=== PATIENT | female | born 1935 | race Caucasian/White ===

== ENCOUNTER 2019-08-15 13:59 | Outpatient (RCR) | payer MEDICARE, OTHER, SELFPAY | END 2019-08-26 23:59 | disposition home or self-care (01) | LOC: WOUND 13:59 | PROVIDERS: Family Provider Family Medicine; PCP Family Medicine; Visit Provider Nurse Practitioner Family | DX: I96 Gangrene, not elsewhere classified (principal); L89.613 Pressure ulcer of right heel, stage 3; L89.620 Pressure ulcer of left heel, unstageable | CPT/HCPCS: 99204; 99214; G0463; L3260 ==

== ENCOUNTER 2019-08-29 15:10 | Outpatient (CLI) | payer MEDICARE, OTHER, SELFPAY ==
--- NOTE | 2019-08-29 15:18 | XR_ITS ---
WS: [id number] LEFT FOOT: 3 VIEW(S) TECHNIQUE: PA, oblique and lateral. HISTORY: PAIN REDNESS, NON HEALING ULCER COMPARISON: None available. No acute fracture or dislocation. Normal tarsal/metatarsal alignment. Soft tissue ulceration posterior to the calcaneus measures 1.6 cm. No osteomyelitis. XR/XR foot LT min 3V* [id number] IMPRESSION: Soft tissue ulceration in the retrocalcaneal soft tissues. Measures 1.6 cm with no osteomyelitis.
--- NOTE | 2019-08-29 15:18 | XR_ITS ---
WS: [id number] RIGHT FOOT: 3 VIEW(S) TECHNIQUE: PA, oblique and lateral. HISTORY: PAIN REDNESS, NON HEALING ULCER COMPARISON: 12/20/2008 No acute fracture or dislocation. Normal tarsal/metatarsal alignment. Soft tissue ulceration measuring 1.7 cm over the posterior calcaneus. No foreign body. No osteomyelit is. XR/XR foot RT min 3V* [id number] IMPRESSION: Soft tissue ulceration measuring 1.7 cm in the retrocalcaneal region. No osteom yelitis.
== END 2019-08-29 15:11 | disposition home or self-care (01) ==
LOC: RADWPI 15:16
PROVIDERS: Family Provider Family Medicine; PCP Family Medicine; Visit Provider Nurse Practitioner Family
DX: L97.529 Non-pressure chronic ulcer of other part of left foot with unspecified severity (principal); M79.672 Pain in left foot; M79.671 Pain in right foot
CPT/HCPCS: 73630

== ENCOUNTER 2019-09-19 14:11 | Outpatient (RCR) | payer MEDICARE, OTHER, SELFPAY | END 2019-09-24 23:59 | disposition home or self-care (01) | LOC: WOUND 14:11 | PROVIDERS: Family Provider Family Medicine; PCP Family Medicine; Visit Provider Nurse Practitioner Family | DX: I96 Gangrene, not elsewhere classified (principal); L89.613 Pressure ulcer of right heel, stage 3; L89.620 Pressure ulcer of left heel, unstageable; S81.802A Unspecified open wound, left lower leg, initial encounter; S81.801A Unspecified open wound, right lower leg, initial encounter; X58.XXXA Exposure to other specified factors, initial encounter; L97.529 Non-pressure chronic ulcer of other part of left foot with unspecified severity; M79.672 Pain in left foot; M79.671 Pain in right foot | CPT/HCPCS: 73630; 99214; G0463 ==

== ENCOUNTER 2019-10-24 14:32 | Outpatient (RCR) | payer MEDICARE, OTHER, SELFPAY | END 2019-10-25 23:59 | disposition home or self-care (01) | LOC: WOUND 14:32 | PROVIDERS: Family Provider Family Medicine; PCP Family Medicine; Visit Provider Nurse Practitioner Family | DX: I96 Gangrene, not elsewhere classified (principal); L89.612 Pressure ulcer of right heel, stage 2; S81.802A Unspecified open wound, left lower leg, initial encounter; S81.801A Unspecified open wound, right lower leg, initial encounter; X58.XXXA Exposure to other specified factors, initial encounter | CPT/HCPCS: 99204; 99213; 99214; G0463 ==

== ENCOUNTER 2019-11-21 14:24 | Outpatient (RCR) | payer MEDICARE, OTHER, SELFPAY | END 2019-11-24 23:59 | disposition home or self-care (01) | LOC: WOUND 14:24 | PROVIDERS: Family Provider Family Medicine; PCP Family Medicine; Visit Provider Emergency Medicine | DX: S81.811A Laceration without foreign body, right lower leg, initial encounter (principal); X58.XXXA Exposure to other specified factors, initial encounter | CPT/HCPCS: 11042 ==

== ENCOUNTER 2019-11-28 14:48 | Outpatient (CLI) | payer MEDICARE, OTHER, SELFPAY | END 2019-11-28 14:49 | disposition home or self-care (01) | LOC: WOUND 14:50 | PROVIDERS: Family Provider Family Medicine; PCP Family Medicine; Visit Provider Nurse Practitioner Family | DX: S81.801A Unspecified open wound, right lower leg, initial encounter (principal); X58.XXXA Exposure to other specified factors, initial encounter | CPT/HCPCS: G0463 ==

== ENCOUNTER 2019-12-12 14:43 | Outpatient (CLI) | payer MEDICARE, OTHER, SELFPAY | END 2019-12-12 14:44 | disposition home or self-care (01) | LOC: WOUND 14:44 | PROVIDERS: Family Provider Family Medicine; PCP Family Medicine; Visit Provider Nurse Practitioner Family | DX: I87.2 Venous insufficiency (chronic) (peripheral) (principal); L97.812 Non-pressure chronic ulcer of other part of right lower leg with fat layer exposed | CPT/HCPCS: 11042 ==

== ENCOUNTER 2019-12-20 06:32 | Day surgery (SDC) | payer MEDICARE, OTHER, SELFPAY ==
[2019-12-16 16:34] VITALS: BMI 17.2
[2019-12-20 06:43] VITALS: BP 76/64; PULSE 76; RESP 18; TEMP 36.6; O2SAT 97
[2019-12-20] MEDS: sodium chloride 0.9% 1,000 ML 30 ML IV (07:00)
[2019-12-20] MEDS: midazolam 1 mg/mL INJ 2 mL IVP (07:08)
--- NOTE | 2019-12-20 07:19 | ANES.PREANE2 ---
Pre-Anesthetic Assessment Pre-Anesthetic Assessment: Height/Weight: Height 1.52 m Weight 39.916 kg Temp Pulse Resp BP Pulse Ox 97.8 F 76 18 76/64 97 12/20/19 06:43 12/20/19 06:43 12/20/19 06:43 12/20/19 06:43 12/20/19 06:43 Preop Diagnosis: diverticulitis Proposed Procedure: Operation Date: 12/20/19 08:15 Proposed Procedures p Colonoscopy 65210 Z87.19(Not Applicable) - Jonah Luna MD Last intake: Intake Last Liquid Date 12/19/19 Last Liquid Time 22:00 Last Solid Date 12/18/19 Social: Social History: Tobacco (quit) and No alcohol Exam: Pre-Anes Outpt Exam: alert, oriented x 3, clear to auscultation bilaterally and regular rate & rhythm Airway: Submandibular: WNL Cervical ROM: WNL MP: 2 Dentition: False (upper and lower) History/ROS: No significant history except as noted Pulmonary: Pulmonary: PULIDO CV/HEM: CV/HEM: HTN and PVD : : Chronic renal failure Hepatic: Hepatic: None reported GI: GI: None reported Metabolic: Metabolic: Thyroid Musc/skel: Musc/skel: OA/DJD and Weakness Neuropsych: Neuropsych: Anxiety and Depression Anesthetic Plan: ASA status: 3 Anesthesia: Anesthesia Evaluation and MAC Risk of > 500 ml blood loss (7ml/kg in children): No Meds/Allergies Current Medications: Current Medications Generic Name Dose Route Start Last Admin Trade Name Freq PRN Reason Stop Dose Admin Sodium Chloride 1,000 mls @ 30 ml s/hr 12/20/19 06:45 12/20/19 07:00 Sodium Chloride 0.9% IV 30 mls/hr .Q24H CHAPO Administration PFSH Anesthesia PFSH: Medical History Anxiety CKD (chronic kidney disease) Hypertension Hypothyroidism Osteoarthritis Osteoporosis Venous insufficiency Surgical History AV fistula H/O varicose vein stripping History of cataract extraction Insert prosthetic lens History of cholecystectomy History of ear surgery Reconstruction History of esophagogastroduodenoscopy (EGD) History of hernia repair History of open sigmoidectomy (06/21/19) with end colostomy S/P dialysis catheter insertion Family History Sister Peripheral arterial disease Diabetes Mother CAD (coronary artery disease) Father CAD (coronary artery disease) Denies family history of Anesthesia complication Bleeding disorder Social History Smoking and tobacco status: former smoker Alcohol intake: never Lives independently: Yes Household members: spouse Marital status: History of recent travel: No Data Anesthesia Cardiac Studies: No Data to Display
--- NOTE | 2019-12-20 08:00 | W.PM.OPSUD ---
Surgery/Procedure H&P Update DATE OF PROCEDURE: December 20, 2019 DATE H&P PERFORMED: 12/12/19 H&P UPDATE INFORMATION: I have reviewed H&P completed within last 30 days, I have examined patient prior to procedure and No changes to prior documentation PREOP DIAGNOSIS: diverticulitis PLANNED PROCEDURE: Operation Date: 12/20/19 08:15 Proposed Procedures p Colonoscopy 52669 Z87.19(Not Applicable) - Jonah Luna MD
[2019-12-20 08:37] VITALS: BP 85/46; PULSE 59; RESP 18; TEMP 36.2; O2SAT 100
[2019-12-20 08:57] VITALS: BP 99/44; PULSE 60; RESP 18; O2SAT 98
== END 2019-12-20 09:20 | disposition home or self-care (01) ==
PROVIDERS: PCP Family Medicine; Visit Provider Surgery
PROC: 0DJD8ZZ Inspection of Lower Intestinal Tract, Via Natural or Artificial Opening Endoscopic (ICD-10-PCS; CPT 45378; principal; 2019-12-20 08:10)
DX: K57.30 Diverticulosis of large intestine without perforation or abscess without bleeding (principal); I12.9 Hypertensive chronic kidney disease with stage 1 through stage 4 chronic kidney disease, or unspecified chronic kidney disease; N18.9 Chronic kidney disease, unspecified; E03.9 Hypothyroidism, unspecified; M81.0 Age-related osteoporosis without current pathological fracture; M19.90 Unspecified osteoarthritis, unspecified site; Z82.49 Family history of ischemic heart disease and other diseases of the circulatory system; Z87.891 Personal history of nicotine dependence
CPT/HCPCS: 12345; 45378; J2250; J2704; J7030

== ENCOUNTER 2019-12-26 14:26 | Outpatient (CLI) | payer MEDICARE, OTHER, SELFPAY | END 2019-12-26 14:27 | disposition home or self-care (01) | LOC: WOUND 14:28 | PROVIDERS: PCP Family Medicine; Visit Provider Nurse Practitioner Family | DX: I96 Gangrene, not elsewhere classified (principal); L97.812 Non-pressure chronic ulcer of other part of right lower leg with fat layer exposed | CPT/HCPCS: 11042 ==

== ENCOUNTER 2020-01-02 14:07 | Inpatient (IN) | payer MEDICARE, OTHER, SELFPAY ==
[2020-01-02] VITALS (35 sets, daily range): BP systolic 52–146; BP diastolic 32–69; PULSE 54–86; RESP 10–22; TEMP 35.3–36.8; O2SAT 88–100; BMI 17.6
[2020-01-02 07:47] LABS: Basophils # 0.1 10^3/uL (0.0-0.1); Basophils % 1.1 %; Eosinophils # 0.2 10^3/uL (0.0-0.8); Eosinophils % 3.8 %; Hemoglobin 11.5 g/dL (11.5-15.3); Lymphocytes # 1.4 10^3/uL (0.8-4.8); Lymphocytes % 24.6 %; Mean Corpuscular HGB Conc 31.1 g/dL (30.0-36.0); Mean Corpuscular Hemoglobin 31.8 pg (28.0-34.0); Mean Corpuscular Volume 102.2 fL (81-99); Monocytes # 0.3 10^3/uL (0.2-0.9); Monocytes % 6.1 %; Neutrophils # 3.6 10^3/uL (1.8-7.7); Neutrophils % 64.2 %; Nucleated Red Blood Cells % 0 %; Platelet Count 138 10^3/cmm (130-400); Red Blood Count 3.62 10^6/uL (4.1-5.3); Red Cell Distribution Width 15.2 % (12.1-15.1); White Blood Count 5.6 10^3/uL (4.0-10.0)
--- NOTE | 2020-01-02 07:48 | ANES.PREANE2 ---
Pre-Anesthetic Assessment Pre-Anesthetic Assessment: Height/Weight: Height 1.52 m Weight 40.823 kg Preop Diagnosis: Colostomy takedown Proposed Procedure: Operation Date: 01/02/20 08:55 Proposed Procedures p Colostomy Destruction/Takedown(Not Applicable) - Jonah Luna MD Familial anesthetic complications: None Was Beta Tanja taken within 24 hours: N/A Last intake: NPO > 8 hrs Social: Social History: No alcohol and No tobacco Exam: Pre-Anes Outpt Exam: alert, oriented x 3, clear to auscultation bilaterally and regular rate & rhythm Airway: Cervical ROM: WNL MP: 2 Dentition: False Pulmonary: Comments: Hx bronchitis - does not require albuterol in 2 weeks CV/HEM: CV/HEM: None reported Comments: Low bp - takes midodrine 3x a day - may require pressors intraop : : Chronic renal Insufficiency ( D/T celebrex) Comments: Hemodialysis (MWF) - last dialysis on thursday will check potassium Hepatic: Hepatic: None reported GI: GI: None reported Metabolic: Metabolic: Thyroid Musc/skel: Comments: heels are senstive to touching the bed due to callouses - does not like to keep them on bed, may require special positioning (elevation of heels) Neuropsych: Neuropsych: None reported Anesthetic Plan: ASA status: 4 Anesthesia: General Risk of > 500 ml blood loss (7ml/kg in children): No PFSH Anesthesia PFSH: Medical History Anxiety CKD (chronic kidney disease) Hypertension Hypothyroidism Osteoarthritis Osteoporosis Venous insufficiency Surgical History AV fistula H/O varicose vein stripping History of cataract extraction Insert prosthetic lens History of cholecystectomy History of ear surgery Reconstruction History of esophagogastroduodenoscopy (EGD) History of hernia repair History of open sigmoidectomy (06/21/19) with end colostomy S/P dialysis catheter insertion Status post colonoscopy (12/20/19) diverticulosis Family History Sister Peripheral arterial disease Diabetes Mother CAD (coronary artery disease) Father CAD (coronary artery disease) Denies family history of Anesthesia complication Bleeding disorder Social History Smoking and tobacco status: former smoker Alcohol intake: never Lives independently: Yes Household members: spouse Marital status: History of recent travel: No Data Anesthesia CBC & Chem 7: 01/02/20 07:32 Other Labs: Laboratory Results - last 48 hr 01/02/20 07:32 WBC 5.6 RBC 3.62 L Hgb 11.5 Hct 37.0 MCV 102.2 H MCH 31.8 MCHC 31.1 RDW 15.2 H Plt Count 138 MPV 11.0 H Neut % (Auto) 64.2 Lymph % (Auto) 24.6 Mcculloch % (Auto) 6.1 Eos % (Auto) 3.8 Baso % (Auto) 1.1 Neut # (Auto) 3.6 Lymph # (Auto) 1.4 Mcculloch # (Auto) 0.3 Eos # (Auto) 0.2 Baso # (Auto) 0.1 Nucleated RBC % (auto) 0 Nucleated RBCs # 0.0 Cardiac Studies: No Data to Display
--- NOTE | 2020-01-02 07:59 | W.PM.OPSUD ---
Surgery/Procedure H&P Update DATE OF PROCEDURE: January 02, 2020 DATE H&P PERFORMED: 12/27/19 H&P UPDATE INFORMATION: I have reviewed H&P completed within last 30 days, I have examined patient prior to procedure and No changes to prior documentation PREOP DIAGNOSIS: Colostomy takedown PLANNED PROCEDURE: Operation Date: 01/02/20 08:55 Proposed Procedures p Colostomy Destruction/Takedown(Not Applicable) - Jonah Luna MD
[2020-01-02 08:04] LABS: Alanine Aminotransferase 35 U/L (0-33); Albumin Level 4.5 g/dL (3.5-5.2); Alkaline Phosphatase 70 IU/L (35-105); Anion Gap 16.6 (5-19); Aspartate Amino Transferase 40 U/L (0-32); Blood Urea Nitrogen 36 mg/dL (8-23); Calcium 9.4 mg/dL (8.5-10.5); Carbon Dioxide 24 mmol/L (22-29); Chloride 102 mmol/L (98-107); Globulin 3.3 g/dL (1.3-4.6); Glucose 102 mg/dL (65-115); Osmolality Calculated 286 mOsm/kg (285-295); Potassium 3.6 mmol/L (3.5-5.1); Sodium 139 mmol/L (136-145); Total Bilirubin 0.3 mg/dL (0.15-1.2); Total Protein 7.8 g/dL (6.6-8.7)
[2020-01-02] MEDS: sodium chloride 0.9% 1,000 ML 30 ML IV (08:50)
[2020-01-02] MEDS: Fleet Enema 133 mL Enema PR (08:51)
[2020-01-02] MEDS: clindamycin 600 MG/50 ML PREMIX 100 MG IV ×2 (09:00→18:45)
[2020-01-02] MEDS: metroNIDAZOLE IV 500 MG/100 ML PREMIX 100 MG IV (09:15)
--- NOTE | 2020-01-02 09:55 | SUR.OPER ---
[id number]-Notified family via cell phone patient is in OR and procedure just began.
--- NOTE | 2020-01-02 11:58 | SUR.OPER ---
1158-FAMILY CALLED AND UPDATED ON PROGRESS OF SURGERY
[2020-01-02] MEDS: ondansetron 2 mg/ML SDV 2 mL 4 MG IVP ×2 (15:02→15:15)
[2020-01-02] MEDS: ePHEDrine 50 mg/mL Inj 10 MG IVP ×2 (15:29→16:46)
[2020-01-02] MEDS: albumin 12.5 GM/250 ML VIAL IV (15:55)
[2020-01-02 16:06] LABS: Basophils % 0.3 %; Eosinophils % 0.2 %; Hematocrit 30.7 % (37.0-47.0); Hemoglobin 8.9 g/dL (11.5-15.3); Lymphocytes # 0.9 10^3/uL (0.8-4.8); Lymphocytes % 14.4 %; Mean Corpuscular Hemoglobin 32.6 pg (28.0-34.0); Mean Corpuscular Volume 112.5 fL (81-99); Mean Platelet Volume 10.7 fL (7.4-10.4); Monocytes # 0.2 10^3/uL (0.2-0.9); Monocytes % 3.7 %; Neutrophils # 4.9 10^3/uL (1.8-7.7); Neutrophils % 81.2 %; Nucleated Red Blood Cells % 0 %; Platelet Count 115 10^3/cmm (130-400); Red Blood Count 2.73 10^6/uL (4.1-5.3); Red Cell Distribution Width 15.6 % (12.1-15.1)
[2020-01-02 16:16] LABS: Anion Gap 17.9 (5-19); Blood Urea Nitrogen 30 mg/dL (8-23); Calcium 8.4 mg/dL (8.5-10.5); Carbon Dioxide 19 mmol/L (22-29); Chloride 108 mmol/L (98-107); Glucose 148 mg/dL (65-115); Osmolality Calculated 292 mOsm/kg (285-295); Potassium 3.9 mmol/L (3.5-5.1); Sodium 141 mmol/L (136-145)
--- NOTE | 2020-01-02 16:18 | PM.OP ---
Operative Report Date of procedure: January 02, 2020 Pre-op Diagnosis: Colostomy takedown Post-op Findings: Extensive adhesions involving the entire abdomen Procedure Done: Laparoscopic lysis of adhesions for 2 hours Partial colectomy with takedown of colostomy using 29 mm EEA stapler Proctoscopy Specimens removed/disposition: Proximal and distal donut, distal descending colon and distal sigmoid colon Pathology: none sent Surgeon: Jonah Luna Supervisor Machine Workers: Tamir Bray Anesthesia: General Estimated blood loss (mL): 100 IV fluids (mL): 1,300 Urine output (mL): 700 Condition: stable Disposition: ICU Procedure: The patient was taken to the operating room and intubated under general anesthesia after IV antibiotic had been administered. The Hahn catheter was placed and the rectal stump was irrigated with dilute Betadine using a red rubber catheter. The perineum and the abdomen was prepped and draped in a sterile manner after the colostomy with figure of 8-0 Vicryl suture and covered with Tegaderm.. A 1 cm transverse she was made in the right lower quadrant and using open Garcia technique the peritoneal cavity was entered and 15 mm of pneumoperitoneum was created and a 10 mm 30? scope was introduced. A 5 mm port was placed in the right upper quadrant and in the epigastric under direct visualization. She has had a prior open cholecystectomy and laparotomy for sigmoid perforation and therefore she had extensive adhesions were small bowel loops, transverse colon and descending colon was adherent to the abdominal wall. There was dense adhesions to the abdominal wall from the prior laparotomy as well as multiple small bowel loops adherent to the abdominal wall.. Using scissors and electrocautery, laparoscopic lysis of adhesions were performed for about 120minutes extending from the mid abdominal wall, around the colostomy and into the pelvis. Unfortunately the extent of adhesions in the pelvis made it unsafe to proceed laparoscopically with identification of the rectal stump. A midline laparotomy incision was then made, subcutaneous tissue and fascia was divided in the midline using electrocautery. Dissection was then carried using Metzenbaum scissors to free the small bowel loops adherent to the pelvic wall as well as the rectal stump until the rectal stump could be finally identified. After the rectal stump had been identified, anal dilators were placed and the rectal stump was dissected free from the surrounding pelvic wall. At this point, the pneumoperitoneum was released. An elliptical skin incision was made around the colostomy and using electrocautery the colostomy was dissected free from the surrounding subcutis tissue until it was freed from the abdominal wall and the descending colon was exteriorized. An area of the descending colon where the tissue appeared healthy was clamped with Autosuture pursestring and the distal segment of the descending colon was excised using a 15 blade to perform a partial colectomy. Dissection of the rectal stump revealed remanent portion of the sigmoid colon which was dissected free from the lateral pelvic wall and the sigmoid mesocolon was divided using LigaSure. A TA 30 stapler was then used to divide the colon at the rectosigmoid junction. The end colostomy was dilated up to 28 mm using anal dilator and anvil of a 29 mm EEA stapler anvil was introduced and tied down using the Autosuture pursestring as well as a separate 2-0 Ethibond suture. The end colostomy was introduced into the peritoneal cavity and the fascia at the colostomy site was approximately using interrupted 0 Vicryl suture and the 10 mm port was placed and pneumoperitoneum was recreated. Dr Flores joined ms and after performing anal dilation, the EEA stapler was introduced into the rectal stump and the trocar passed anteriorly through the rectal wall under direct visualization.. The anvil was attached to the trocar, closed and fired to perform a 29 mm EEA anastomosis. Proctoscopy with colonoscope was then performed showing intact staple line with no active bleeding. The leak test was negative. The pelvis was irrigated and suctioned out and all ports were removed under direct visualization. The fascia in the midline was closed using running #1 looped PDS. The fascia the colostomy site as well as the 10 mm port was closed using [id number] 0 Vicryl suture/ the subcutis tissues approximated using interrupted 3-0 Vicryl suture and the skin at the port sites were closed using staple . The patient was subsequently extubated, and transferred to recovery room with Hahn catheter in place.
--- NOTE | 2020-01-02 17:43 | P.CONIM_ITS ---
Providers/Reason For Consult Consulting Physican/Specialty*: Family medicine Reason for Consult*: Consultation for medical management of other comorbidities. Attending Physician: Jonah Luna MD Primary Care Provider: Iban Victoria MD History of Present Illness History of Present Illness Rama Escobar is a 84 year old female with past medical history of end-stage renal disease on hemodialysis, perforation of sigmoid colon status post resection in May 2019 now with reversal, depression, peripheral vascular disease. The patient presented to [facility] [place] for a planned reversal of her colostomy. The patient had surgery earlier today on 01/02/2020 and the surgery went well. The p atient has had relative hypotension since the surgery. Her blood pressures tend to run in the 90s over 50s range on a regular basis. The patient currently has pain associated with her surgery. Anesthesia states that with increased pain control, the patient's blood pressures do drop. Meds/Allergies Home Medications and Allergies Home Medications Medication Instructions Recorded Confirmed Last Taken Type albuterol sulfate 90 mcg/actuation 1 inh INHALATION ONCE 08/19/19 01/02/20 12/30/19 History aerosol inhaler alprazolam 0.5 mg tablet 0.5 mg PO BID 08/19/19 01/02/20 12/31/19 History citalopram 40 mg tablet 40 mg PO .COMPLEX tab 08/19/19 01/02/20 12/31/19 History gabapentin 100 mg capsule See Rx Instructions PO .COMPLEX 08/19/19 01/02/20 01/02/20 History levothyroxine 50 mcg tablet 50 mcg PO QDAY 08/19/19 01/02/20 01/02/20 History prenat.vits,yana,bnk-buqp-ndvdk 1 tab PO QDAY 08/19/19 01/02/20 01/01/20 History tramadol 50 mg tablet 50 mg PO QDAY PRN 08/19/19 01/02/20 12/30/19 History midodrine 5 mg tablet 5 mg PO TID 10/10/19 01/02/20 01/02/20 06:30 History ondansetron HCl 4 mg tablet 4 mg PO Q6H PRN #20 tab 10/11/19 01/02/20 01/01/20 Rx erythromycin 500 mg tablet 500 mg PO .COMPLEX #3 tab 12/28/19 01/02/20 01/01/20 22:00 Rx neomycin 500 mg tablet 1 gm PO .COMPLEX #6 tab 12/28/19 01/02/20 01/01/20 22:00 Rx aspirin 325 mg PO DAILY 01/02/20 01/02/20 12/29/19 History Allergies Allergy/AdvReac Type Severity Reaction Status Date / Time codeine Allergy Severe ADR-Irritab Verified 01/02/20 07:32 le cephalexin [From Keflex] Allergy Unkown Verified 12/27/19 14:38 Iodinated Contrast Media Allergy Kidney Verified 12/27/19 14:38 Problems NSAIDS (Non-Steroidal Allergy Kidney Verified 12/27/19 14:38 Anti-Inflamma Patient penicillamine Allergy Unknown Verified 12/27/19 14:38 Current Medications Current Medications Generic Name Dose Route Start Last Admin Trade Name Freq PRN Reason Stop Dose Admin Sodium Chloride 1,000 mls @ 30 mls/hr 01/02/20 08:00 01/02/20 09:59 Sodium Chloride 0.9% IV 01/03/20 07:59 Infused .Q24H CHAPO Infusion PFSH Acute PFSH: Medical History Anxiety CKD (chronic kidney disease) Hypertension Hypothyroidism Osteoarthritis Osteoporosis Venous insufficiency Surgical History AV fistula H/O varicose vein stripping History of cataract extraction Insert prosthetic lens History of cholecystectomy History of ear surgery Reconstruction History of esophagogastroduodenoscopy (EGD) History of hernia repair History of open sigmoidectomy (06/21/19) with end colostomy S/P dialysis catheter insertion Status post colonoscopy (12/20/19) diverticulosis Family History Sister Peripheral arterial disease Diabetes Mother CAD (coronary artery disease) Father CAD (coronary artery disease) Denies family history of Anesthesia complication Bleeding disorder Social History Smoking and tobacco status: former smoker Alcohol intake: never Lives independently: Yes Household members: spouse Marital status: History of recent travel: No Vitals/I&O/Wt Last Vital Signs Temp 97 F L 01/02/20 14:31 Pulse 63 06/08/20 16:59 Resp 15 01/02/20 16:59 BP 94/39 01/02/20 16:59 Pulse Ox 97 01/02/20 16:59 01/02/20 01/02/20 01/02/20 06:59 14:59 22:59 Intake Total 1350 / 1350 Output Total 800 / 800 700 / 1500 Balance 550 / 550 -700 / -150 Weight last 48 hrs Weight 90 lb Weight 90 lb Physical Exam Narrative: EXAM NARRATIVE: General: Somnolent after surgery. Able to state information. Cardiac: Regular rate and rhythm without murmurs Lungs: Clear to auscultation bilaterally without wheezes, crackles or rhonchi Abdomen: Soft, tenderness noted across abdomen. Extremities: No edema Urinary Catheter Management^: Hahn: Cath Placed During This Visit: yes Urinary Catheter Date of Insertion: 01/02/20 Urinary Catheter Time of Insertion: 09:25 A&P Assessment and plan (1) Hypotension: Status: Acute (2) End-stage renal disease needing dialysis: Status: Acute Additional A&P Information 1. Status post reversal of ostomy -the patient seems to be doing well with this overall. The patient will need pain control. The patient also was given clindamycin and metronidazole prior to surgery. Continue this per recommendations from surgery. 2. Hypotension -the patient's blood pressures normally run in the 80/50 up to 120/70 range. We will certainly need to watch and be sure that her blood pressure does not drop significantly. We will give blood if needed. If needed we will start Levophed. We will restart midodrine to help with this when she is taking meds by mouth. 3. Anemia -patient's hemoglobin was 8.9. We will recheck levels in another 6 hours. We will follow closely to be sure this does not drop too far after surgery. 4. End-stage renal disease on hemodialysis -per nephrology 5. Depression -okay to continue with Effexor once she starts oral meds. 6. Hypothyroidism -continue with levothyroxine. 7. Prophylaxis -per recommendations of general surgery in terms of when to start Lovenox. Consult Attestations Medical Necessity Statement: Patient will be here for greater than 2 midnights due to recovery after reversal of ostomy with multiple other medical comorbidities. Coding Level of Care Code Acute Rehabilitation Consultant for [facility] Fwd Diagnoses Hypotension I95.9 End-stage renal disease needing dialysis N18.6; Z99.2
[2020-01-02] MEDS: ciprofloxacin 400 MG/200 ML PREMIX 200 MG IV (18:20)
[2020-01-02] MEDS: sodium chloride 0.9% 1,000 ML 100 ML IV ×2 (18:20→19:07)
[2020-01-02] MEDS: calcium chloride 10% Syr 10 mL 1 GM IVP (18:24)
[2020-01-02] MEDS: fentaNYL 50 mcg/mL INJ 2mL IVP (18:25)
[2020-01-02] MEDS: dexamethasone 4 mg/mL INJ IVP (18:25)
[2020-01-02] MEDS: famotidine 20 mg/2 mL INJ IVP (18:26)
[2020-01-02] MEDS: metoclopramide 5 mg/mL SDV 2 mL 10 MG IVP (18:45)
[2020-01-02] MEDS: ALPRAZolam 0.5 mg Tablet PO (19:08)
--- NOTE | 2020-01-02 20:00 | PC.NURSE ---
Skin tear to right arm and skin tear to right hidalgo present on admission. Heels have nodules on them, heels floated on pillows. No breakdown noted to bottom, will continue to monitor for breakdown.
[2020-01-02] MEDS: sennosides 8.6 mg Tablet 17.2 MG PO (21:32)
[2020-01-02] MEDS: HYDROcodone-acetaminophen 5-325 mg Tablet 1 TAB PO (21:32)
[2020-01-02] MEDS: midodrine 5 mg TABLET PO (21:32)
--- NOTE | 2020-01-02 23:00 | PC.NURSE ---
DR NATASHA CASTILLO WAS CONTACTED DUE TO PT BEING IN PAIN AND NPO. DR CASTILLO SAID TO CALL SURGEON AND ASK ABOUT NPO STATUS. DR HILL WAS CALLED AND GAVE THE OKAY TO GIVE PO MEDS. DR CASTILLO CALLED BACK AND GAVE ORDER TO IV TYLENOL PRN IF PT IS STILL IN PAIN AFTER ORAL PAIN PILL. DR CASTILLO SAID TO CONTACT HIM IF PT MAP IS CONTINUALLY UNDER 60.
[2020-01-03] VITALS (54 sets, daily range): BP systolic 74–146; BP diastolic 31–63; PULSE 76–87; RESP 13–95; TEMP 36.4–37.3; O2SAT 92–100
[2020-01-03] MEDS: sodium chloride 0.9% 1,000 ML 100 ML IV ×2 (01:08→18:28)
[2020-01-03] MEDS: clindamycin 600 MG/50 ML PREMIX 100 MG IV (01:09)
[2020-01-03] MEDS: sodium chloride 0.9% 500 ML 999 ML IV (01:50)
--- NOTE | 2020-01-03 03:00 | PC.NURSE ---
DR KAUR PT MAP CONTINUED TO BE BELOW 60. DR CASTILLO GAVE ORDER TO GIVE ONE UNIT OF BLOOD. IF BLOOD PRESSURE CONTINUES TO BE HYPOTENSIVE, THEN START LEVOPHED.
[2020-01-03 03:56] LABS: Hematocrit 22.3 % (37.0-47.0); Hemoglobin 6.7 g/dL (11.5-15.3); Lymphocytes # 0.2 10^3/uL (0.8-4.8); Lymphocytes % 5.6 %; Mean Corpuscular Hemoglobin 31.9 pg (28.0-34.0); Mean Corpuscular Volume 106.2 fL (81-99); Mean Platelet Volume 10.9 fL (7.4-10.4); Monocytes # 0.2 10^3/uL (0.2-0.9); Monocytes % 6.8 %; Neutrophils % 87.6 %; Nucleated Red Blood Cells % 0 %; Platelet Count 95 10^3/cmm (130-400); Red Cell Distribution Width 15.5 % (12.1-15.1); White Blood Count 3.4 10^3/uL (4.0-10.0)
[2020-01-03 04:17] LABS: Anion Gap 17.6 (5-19); Blood Urea Nitrogen 32 mg/dL (8-23); Calcium 8.6 mg/dL (8.5-10.5); Carbon Dioxide 17 mmol/L (22-29); Chloride 108 mmol/L (98-107); Glucose 111 mg/dL (65-115); Osmolality Calculated 286 mOsm/kg (285-295); Potassium 3.6 mmol/L (3.5-5.1); Sodium 139 mmol/L (136-145)
[2020-01-03] MEDS: sodium chloride 0.9% (100 ml) 100 ML (04:35)
[2020-01-03] MEDS: heparin 5,000 unit/mL INJ 1 mL 5000 UNIT SUBCUT (06:22)
--- NOTE | 2020-01-03 06:32 | PC.NURSE ---
SHIFT SUMMARY PT HAS BEEN ORIENTATED THE LATTER PART OF THE SHIFT. PT IS FULLY AWAKE, STATES SHE DOES NOT NEED PAIN MEDS AT THIS TIME. UNIT OF BLOOD RUNNING CURRENTLY. NO REACTION NOTED THUS FAR. PT HAD ADEQUATE URINE OUTPUT. NO DRAINAGE NOTED TO SURGICAL INCISION, PT HAS BEEN AFEBRILE. LUNGS REMAIN DIMINISHED. PT REMAINS HYPOTENSIVE, DR CASTILLO AWARE.
--- NOTE | 2020-01-03 07:55 | PM.PN ---
Subjective Subjective: Interval history: The patient's pain is more controlled this morning. She received 1 unit of blood overnight. Her blood pressures had been soft overnight and fluid boluses helped with this. The patient has not needed any other pressure support. The patient denies any chest pains or shortness of breath at this time. Vitals/I&O/Wt Last Vital Signs Temp 98.7 F 01/03/20 05:55 Pulse 83 01/03/20 06:00 Resp 14 01/03/20 06:00 BP 97/44 01/03/20 06:00 Pulse Ox 100 01/03/20 06:00 01/02/20 01/03/20 01/03/20 22:59 06:59 14:59 Intake Total 100 / 1450 830 / 2280 Output Total 700 / 1500 750 / 2250 Balance -600 / -50 80 / 30 Weight last 48 hrs Weight 90 lb Weight 90 lb Physical Exam Narrative: EXAM NARRATIVE: General: Somnolent after surgery. Able to answer questions appropriately Cardiac: Regular rate and rhythm without murmurs Lungs: Clear to auscultation bilaterally without wheezes, crackles or rhonchi Abdomen: Soft, tenderness noted across abdomen. Dressing is clean and dry. Extremities: No edema. Signs of mild darkness at the heels without ulceration. Urinary Catheter Management^: Hahn: Cath Placed During This Visit: yes Reason for Continuing Indwelling Catheter: Accurate Measurement of Urinary Output in Critically Ill Patients Urinary Catheter Date of Insertion: 01/02/20 Urinary Catheter Time of Insertion: 09:25 Data : 01/03/20 03:20 01/03/20 03:20 A&P Assessment and plan (1) Hypotension: Status: Acute (2) End-stage renal disease needing dialysis: Status: Acute Additional A&P Information 1. Status post reversal of ostomy -the patient seems to be doing well with this overall. The patient has been receiving IV Tylenol and oral hydrocodone for pain control. This seems to be doing well. Continue with oral meds if able per surgery. The patient also was given clindamycin and metronidazole prior to surgery. Continue this per recommendations from surgery. 2. Hypotension -the patient's blood pressures normally run in the 80/50 up to 120/70 range. Her blood pressure is stabilizing with 1 unit of blood. Her hemoglobin was low, so we will recheck at 11 and likely need another unit of blood. 3. Anemia -patient's hemoglobin was 8.9 and decreased to 6.7. She received 1 unit of blood and will likely need another. Will see what the 11:00 hemoglobin shows. 4. End-stage renal disease on hemodialysis -per nephrology 5. Depression -okay to continue with citalopram. 6. Hypothyroidism -continue with levothyroxine. 7. Prophylaxis -per recommendations of general surgery in terms of when to start Lovenox. Attestations Medical Necessity Statement*: The patient continues need inpatient and ICU care. She needs ICU care secondary to her relative hypotension. Her stay will cross 2 midnights. Critical Care Time: Critical Care Time (min): 25 Coding Level of Care Code Acute Explosive Operator Bomb for [facility] Diagnoses Hypotension I95.9 End-stage renal disease needing dialysis N18.6; Z99.2
[2020-01-03 08:05] LABS: Glucose Point of Care 93 mg/dL (70-110)
--- NOTE | 2020-01-03 08:44 | PM.CONSULT ---
Providers/Reason For Consult Consulting Physican/Specialty*: telenephrology/ giles perry md Reason for Consult*: ESRD care Attending Physician: Jonah Luna MD Primary Care Provider: Iban Victoria MD History of Present Illness History of Present Illness Rama Escobar is a 84 year old female POD #1 s/p colostomy repair. pt has h/o hypotension and ESRD. Pt had colostomy min Fall 2018. currently seen in icu, is weak, sob, abd pain. s/p 1 u prbc tx this am. Review of Systems General: Reports: 10 or more systems reviewed and unremarkable except in HPI and below Narrative: weak, rodriguez, abd pain, sob, + urinates. no leg pain, avf not working, + lethargy Meds/Allergies Home Medications and Allergies Home Medications Medication Instructions Recorded Confirmed Last Taken Type albuterol sulfate 90 mcg/actuation 1 inh INHALATION ONCE 08/19/19 01/02/20 12/30/19 History aerosol inhaler alprazolam 0.5 mg tablet 0.5 mg PO BID 08/19/19 01/02/20 12/31/19 History citalopram 40 mg tablet 40 mg PO .COMPLEX tab 08/19/19 01/02/20 12/31/19 History gabapentin 100 mg capsule See Rx Instructions PO .COMPLEX 08/19/19 01/02/20 01/02/20 History levothyroxine 50 mcg tablet 50 mcg PO QDAY 08/19/19 01/02/20 01/02/20 History prenat.vits,yana,[id number] 1 tab PO QDAY 08/19/19 01/02/20 01/01/20 History tramadol 50 mg tablet 50 mg PO QDAY PRN 08/19/19 01/02/20 12/30/19 History midodrine 5 mg tablet 5 mg PO TID 10/10/19 01/02/20 01/02/20 06:30 History ondansetron HCl 4 mg tablet 4 mg PO Q6H PRN #20 tab 10/11/19 01/02/20 01/01/20 Rx erythromycin 500 mg tablet 500 mg PO .COMPLEX #3 tab 12/28/19 01/02/20 01/01/20 22:00 Rx neomycin 500 mg tablet 1 gm PO .COMPLEX #6 tab 12/28/19 01/02/2012/31/20 22:00 Rx aspirin 325 mg PO DAILY 01/02/20 01/02/20 12/29/19 History Allergies Allergy/AdvReac Type Severity Reaction Status Date / Time codeine Allergy Severe ADR-Irritab Verified 01/02/20 07:32 le cephalexin [From Keflex] Allergy Unkown Verified 12/27/19 14:38 Iodinated Contrast Media Allergy Kidney Verified 12/27/19 14:38 Problems NSAIDS (Non-Steroidal Allergy Kidney Verified 12/27/19 14:38 Anti-Inflamma Patient penicillamine Allergy Unknown Verified 12/27/19 14:38 Current Medications Current Medications Generic Name Dose Route Start Last Admin Trade Name Freq PRN Reason Stop Dose Admin Hydrocodone Bitart/Acetaminophen 1 tab 01/02/20 15:31 01/02/20 21:32 [place] 5-325 Mg PO 1 tab Q6H PRN Administration MODERATE PAIN Gabapentin 100 mg 01/02/20 21:00 01/02/20 21:32 Neurontin PO Not Given TID CHAPO Heparin Sodium (Beef Lung) 5,000 unit 01/03/20 06:00 01/03/20 06:22 Heparin SUBCUT 5,000 unit Q12H [facility] Administration Sodium Chloride 500 mls @ 999 mls/hr 01/02/20 07:53 01/03/20 01:50 Sodium Chloride 0.9% IV 999 mls/hr .Q31M PRN Administration HYPOTENSION Sodium Chloride 1,000 mls @ 100 mls/hr 01/02/20 15:30 01/03/20 01:08 Sodium Chloride 0.9% IV 100 mls/hr .Q10H [facility] Administration Acetaminophen 1,000 mg in 100 mls @ 400 mls/hr 01/02/20 22:56 01/03/20 03:07 Ofirmev IV Infused Q8H PRN Infusion PAIN Midodrine 5 mg 01/02/20 21:00 01/02/20 21:32 Proamatine PO 5 mg TID CHAPO Administration Non-Formulary Medication 1 tab 01/02/20 15:30 01/02/20 18:21 Prenat.Vits,Yana,Wzq-Mqmm-Nobhr PO Not Given DAILY [facility] Senna 17.2 mg 01/02/20 21:00 01/02/20 21:32 Senna Lax PO 17.2 mg BEDTIME [facility] Administration PFSH Acute PFSH: Medical History (Updated 01/03/20 @ 07:06 by Jonah Luna MD) Anxiety CKD (chronic kidney disease) Hypothyroidism Osteoarthritis Osteoporosis Venous insufficiency Surgical History (Updated 01/03/20 @ 07:06 by Jonah Luna MD) AV fistula H/O varicose vein stripping History of cataract extraction Insert prosthetic lens History of cholecystectomy History of ear surgery Reconstruction History of esophagogastroduodenoscopy (EGD) History of hernia repair History of open sigmoidectomy (06/21/19) with end colostomy S/P colostomy takedown (01/02/20) S/P dialysis catheter insertion Status post colonoscopy (12/20/19) diverticulosis Family History Sister Peripheral arterial disease Diabetes Mother CAD (coronary artery disease) Father CAD (coronary artery disease) Denies family history of Anesthesia complication Bleeding disorder Social History Smoking and tobacco status: former smoker Alcohol intake: never Lives independently: Yes Household members: spouse Marital status: History of recent travel: No Vitals/I&O/Wt Last Vital Signs Temp 98.7 F 01/03/20 05:55 Pulse 83 01/03/20 06:00 Resp 14 01/03/20 06:00 BP 97/44 01/03/20 06:00 Pulse Ox 100 01/03/20 06:00 01/02/20 01/03/20 01/03/20 22:59 06:59 14:59 Intake Total 100 / 1450 830 / 2280 Output Total 700 / 1500 750 / 2250 Balance -600 / -50 80 / 30 Weight last 48 hrs Weight 40.823 kg Weight 40.823 kg Physical Exam Narrative: EXAM NARRATIVE: thin, elderly female in bed, uncomfortable. NARD vs noted- afebrile- BP stable for her in SBP's of 90+ heent- nc/at, eomi, anicteric neck supple lung- b/l ronchi heart reg, +SAMMI, +s1, s2 abd- tender, bandaged ext LUE AVF no thrill or bruit ext no edema neuro- a,a, o x 3 Urinary Catheter Management^: Hahn: Cath Placed During This Visit: yes Reason for Continuing Indwelling Catheter: Accurate Measurement of Urinary Output in Critically Ill Patients Urinary Catheter Date of Insertion: 01/02/20 Urinary Catheter Time of Insertion: 09:25 A&P Additional A&P Information 84 yr old female 1. s/p colostomy reversal- care as per Dr. Luna 2. anemia- ESRD and post-op losses- s/p 1 u prbc tx. -would recommend transfusing another unit on HD today -check iron, b12, folate levels- high mcv 3.met acidosis from ESRD - ESRD- last HD was Thursday12/30/19 -repeat HD now- 3 hrs, 3k, remove 1l, can tx 1 u prbc -check cxr 4. Bone- mineral- metabolism of ESRD -check phos, ca, pth 5. hypothyroidism- check tsh 6. check cortisol level w/ hypotension pt seen w/ MOUNTING INSPECTOR Consult Attestations Medical Necessity Statement: ESRD, anemia, s/p colostomy reversal Time Spent in Patient Care: Greater than 35 minutes Coding Level of Care Code Acute Marketing Automation Manager for [employer]ant[employer] Alcira
--- NOTE | 2020-01-03 08:58 | XRR_ITS ---
PROCEDURE INFORMATION: Exam: XR Chest, 1 View Exam date and time: 01/03/2020 9:08 AM Age: 84 years old Clinical indication: Shortness of breath; Patient HX: Post op/abdomen; Additional info: Sob/ esrd/ anemia TECHNIQUE: Imaging protocol: XR of the chest Views: 1 view. COMPARISON: No relevant prior studies available. FINDINGS: Tubes, catheters and devices: Dialysis catheter via the right internal jugular approach with the tip in the region of the caval atrial junction. Lungs: Severe emphysema Lungs are well aerated without a focal area of consolidation. Pleural space: Apical pleural thickening particularly on the left Heart/Mediastinum: Unremarkable. No cardiomegaly. Vasculature: Stent in the left axillary region Bones/joints: Unremarkable. XR/XR chest 1V portable [id number] IMPRESSION: Lungs are well aerated without a focal area of consolidation. Severe emphysema
--- NOTE | 2020-01-03 09:23 | PM.PN ---
Subjective Subjective: Interval history: Patient's pain is finally controlled, patient has been hypotensive, no nausea or vomiting. Her hemoglobin is down to 6.7 for which she got 1 unit of blood. Vitals/I&O/Wt Last Vital Signs Temp 98.7 F 01/03/20 05:55 Pulse 83 01/03/20 06:00 Resp 14 01/03/20 06:00 BP 97/44 01/03/20 06:00 Pulse Ox 100 01/03/20 06:00 01/02/20 01/03/20 01/03/20 22:59 06:59 14:59 Intake Total 100 / 2280 830 / 2280 Output Total 700 / 2250 750 / 2250 Balance -600 / 30 80 / 30 Weight last 48 hrs Weight 90 lb Weight 90 lb Physical Exam Narrative: EXAM NARRATIVE: Abdomen: Soft, nondistended, tender, incisions clean dry and intact, has associated ecchymosis Urinary Catheter Management^: Hahn: Cath Placed During This Visit: yes Reason for Continuing Indwelling Catheter: Accurate Measurement of Urinary Output in Critically Ill Patients Urinary Catheter Date of Insertion: 01/02/20 Urinary Catheter Time of Insertion: 09:25 Data : 01/03/20 03:20 01/03/20 03:20 A&P Assessment and plan (1) S/P colostomy takedown: With postop ileus DC Hahn Ambulate with physical therapy Pepcid 20 mg IV twice daily for GI prophylaxis SCD for DVT prophylaxis, hold off on heparin today due to acute blood loss anemia Appreciate help from Dr. Victoria for medical management Status: Acute (2) Hypotension: Patient had a baseline, awake and alert. Continue normal saline at 100 cc/h Status: Acute (3) End-stage renal disease needing dialysis: Health Assessment And Treatment Teacher consulted, plan for dialysis today Status: Acute (4) Acute blood loss anemia: Patient has been transfused 1 unit for hemoglobin of 6.7, recheck hemoglobin at 11 AM Status: Acute (5) Thrombocytopenia: Recheck platelet count later today Status: Acute Attestations Medical Necessity Statement*: Patient will need continued inpatient stay to ensure resolution of ileus. Coding Level of Care Code Acute Otr Van Cdl Truck Driver for [facility] Fwd Diagnoses S/P colostomy takedown Z98.890 Hypotension I95.9 End-stage renal disease needing dialysis N18.6; Z99.2 Acute blood loss anemia D62 Thrombocytopenia D69.6
[2020-01-03] MEDS: gabapentin 100 mg Capsule PO ×3 (09:46→21:14)
[2020-01-03] MEDS: b-complex-vitamin c Tablet 1 EACH PO (09:46)
[2020-01-03] MEDS: citalopram 20 mg Tablet 40 MG PO (09:46)
[2020-01-03] MEDS: midodrine 5 mg TABLET PO ×3 (09:46→21:14)
[2020-01-03] MEDS: levothyroxine 50 mcg Tablet PO (09:46)
[2020-01-03] MEDS: albuterol 8 gm MDI 1 PUFF INHALATION (09:53)
[2020-01-03 09:54] LABS: Ferritin 861 ng/mL (15-150); Hepatitis C Virus Antibody Non-Reactive (Nonreactive); Iron 12 ug/dL (37-145); Percent Saturation 8.8 % (20-50); Thyroid Stimulating Hormone 0.82 uIU/mL (0.27-4.20); Total Iron Binding Capacity 136 mcg/dl; Unsaturated Iron Binding 124 ug/dL (112-347); Vitamin B12 357 pg/mL (232-1245)
[2020-01-03 10:19] LABS: Folate Level > 20.0 ng/mL (4.8-37.3)
[2020-01-03 10:42] LABS: Hepatitis B Surface Antigen Non-Reactive (Nonreactive)
[2020-01-03 11:37] LABS: Basophils % 0.2 %; Hemoglobin 8.4 g/dL (11.5-15.3); Lymphocytes # 0.6 10^3/uL (0.8-4.8); Lymphocytes % 6.9 %; Mean Corpuscular HGB Conc 31.1 g/dL (30.0-36.0); Mean Corpuscular Hemoglobin 31.3 pg (28.0-34.0); Mean Corpuscular Volume 100.7 fL (81-99); Mean Platelet Volume 10.7 fL (7.4-10.4); Monocytes # 0.5 10^3/uL (0.2-0.9); Monocytes % 5.5 %; Neutrophils # 7.3 10^3/uL (1.8-7.7); Nucleated Red Blood Cells % 0 %; Platelet Count 104 10^3/cmm (130-400); Red Blood Count 2.68 10^6/uL (4.1-5.3); Red Cell Distribution Width 16.5 % (12.1-15.1); White Blood Count 8.4 10^3/uL (4.0-10.0)
[2020-01-03 12:06] LABS: Slide Review Slide Review Perform
--- NOTE | 2020-01-03 12:25 | PC.NURSE ---
Dr Victoria notified of pt's hgb results. One unit of blood ordered.
--- NOTE | 2020-01-03 14:41 | PC.NURSE ---
Pt had new bag of NS hanging at 0700. Retimed IVF.
[2020-01-03] MEDS: HYDROcodone-acetaminophen 5-325 mg Tablet 1 TAB PO ×2 (14:46→21:14)
[2020-01-03 18:53] LABS: Hemoglobin 9.9 g/dL (11.5-15.3)
--- NOTE | 2020-01-03 19:48 | PC.NURSE ---
HAMMONDS OUT BY DAY SHIFT NURSE AT 1500. INTACT, PT HAS URINATED 250 ML SINCE HAMMONDS REMOVAL.
[2020-01-03] MEDS: sennosides 8.6 mg Tablet 17.2 MG PO (21:14)
[2020-01-04] VITALS (18 sets, daily range): BP systolic 93–145; BP diastolic 50–82; PULSE 82–94; RESP 12–20; TEMP 36.7–37.6; O2SAT 91–98
[2020-01-04] MEDS: sodium chloride 0.9% 1,000 ML 100 ML IV ×2 (04:54→14:36)
[2020-01-04 05:34] LABS: Basophils % 0.2 %; Hemoglobin 8.3 g/dL (11.5-15.3); Lymphocytes # 0.6 10^3/uL (0.8-4.8); Lymphocytes % 7.1 %; Mean Corpuscular HGB Conc 31.9 g/dL (30.0-36.0); Mean Corpuscular Hemoglobin 31.2 pg (28.0-34.0); Mean Corpuscular Volume 97.7 fL (81-99); Mean Platelet Volume 11.3 fL (7.4-10.4); Monocytes # 0.4 10^3/uL (0.2-0.9); Neutrophils # 7.9 10^3/uL (1.8-7.7); Neutrophils % 87.3 %; Nucleated Red Blood Cells % 0 %; Platelet Count 79 10^3/cmm (130-400); Red Blood Count 2.66 10^6/uL (4.1-5.3); Red Cell Distribution Width 18.3 % (12.1-15.1)
--- NOTE | 2020-01-04 05:41 | PC.NURSE ---
SHIFT SUMMARY PT HAS REMAINED ALERT AND ORIENTATED. HAS ONLY COMPLAINED OF PAIN WHEN BEING MOVED, NOT REQUIRED NORCO BUT ONE TIME THUS FAR. PT HAD BATH THIS MORNING. BLOOD PRESSURE HAS BEEN NORMOTENSIVE. PT HAS BEEN AFEBRILE. PT HAS BEEN TURNED NEEDED, AND HEELS HAVE BEEN FLOATED. IV REMAINS PATENT. SOME SWELLING NOTED TO RIGHT ARM, ELEVATED ON PILLOW. NO IV INFILTRATIONS NOTED.
[2020-01-04 05:48] LABS: INR 1.41 (0.8-1.2)
[2020-01-04 05:52] LABS: Anion Gap 15.7 (5-19); Blood Urea Nitrogen 25 mg/dL (8-23); Carbon Dioxide 19 mmol/L (22-29); Chloride 113 mmol/L (98-107); Glucose 87 mg/dL (65-115); Iron 12 ug/dL (37-145); Magnesium 1.9 mg/dL (1.7-2.3); Osmolality Calculated 294 mOsm/kg (285-295); Percent Saturation 10.2 % (20-50); Phosphorus 3.2 mg/dL (2.5-4.5); Potassium 3.7 mmol/L (3.5-5.1); Sodium 144 mmol/L (136-145); Total Iron Binding Capacity 117 mcg/dl; Unsaturated Iron Binding 105 ug/dL (112-347)
--- NOTE | 2020-01-04 07:10 | P.PN_ITS ---
Subjective Subjective: Interval history: abd pain, drinking cl liquids. no flatus and /or stool Medications: Reviewed: Yes Medication Review Details: Current Medications Acetaminophen (Tylenol) 650 mg PO Q6H PRN PRN Reason: MILD PAIN Hydrocodone Bitart/Acetaminophen ([place] 5-325 Mg) 1 tab PO Q6H PRN PRN Reason: MODERATE PAIN Last Admin: 01/03/20 21:14 Dose: 1 tab Documented by: Albuterol Sulfate (Ventolin) 1 puff INHALATION DAILY [facility] Last Admin: 01/03/20 09:53 Dose: 1 puff Documented by: Citalopram Hydrobromide (Celexa) 40 mg PO Q48H [facility] Last Admin: 01/03/20 09:46 Dose: 40 mg Documented by: Diphenhydramine HCl (Benadryl) 12.5 mg IVP Q6H PRN PRN Reason: ITCHING Gabapentin (Neurontin) 100 mg PO TID [facility] Last Admin: 01/03/20 21:14 Dose: 100 mg Documented by: Sodium Chloride (Sodium Chloride 0.9%) 1,000 mls @ 100 mls/hr IV .Q10H [facility] Last Admin: 01/04/20 04:54 Dose: 100 mls/hr Documented by: Acetaminophen (Ofirmev) 1,000 mg in 100 mls @ 400 mls/hr IV Q8H PRN PRN Reason: PAIN Last Infusion: 01/03/20 03:07 Dose: Infused Documented by: Levothyroxine Sodium (Synthroid) 50 mcg PO DAILY [facility] Last Admin: 01/03/20 09:46 Dose: 50 mcg Documented by: Midodrine (Proamatine) 5 mg PO TID [facility] Last Admin: 01/03/20 21:14 Dose: 5 mg Documented by: Morphine Sulfate (Morphine) 2 mg IVP Q1H PRN PRN Reason: SEVERE PAIN Multivitamins (Allbee-C) 1 each PO DAILY [facility] Last Admin: 01/03/20 09:46 Dose: 1 each Documented by: Non-Formulary Medication (Prenat.Vits,Rafa,[id number]) 1 tab PO DAILY [facility] Last Admin: 01/03/20 09:45 Dose: Not Given Documented by: Ondansetron HCl (Zofran) 4 mg PO Q6H PRN PRN Reason: nausea and vomiting Senna (Senna Lax) 17.2 mg PO BEDTIME [facility] Last Admin: 01/03/20 21:14 Dose: 17.2 mg Documented by: Vitals/I&O/Wt Last Vital Signs Temp 99.1 F 01/04/20 04:47 Pulse 91 01/04/20 06:00 Resp 19 H 01/04/20 06:00 BP 103/67 01/04/20 06:00 Pulse Ox 96 01/04/20 06:00 01/03/20 01/04/20 01/04/20 22:59 06:59 14:59 Intake Total 430 / 1490 1120 / 2610 Balance 430 / 1490 1120 / 2610 Weight last 48 hrs Weight 40.823 kg Weight 40.823 kg Physical Exam Narrative: EXAM NARRATIVE: thin, elderly female in bed, comfortable. NARD vss, afebrile heent- nc/at, eomi, anicteric neck supple lung- b/l good air movement heart reg, +SAMMI, +s1, s2 abd- tender, bandaged, no BS appreciated ext LUE AVF no thrill or bruit ext no edema neuro- a,a, o x 3 access- rt IJ tunelled catheter Urinary Catheter Management^: Hahn: Cath Placed During This Visit: yes, but has since been removed by the nurse Reason for Continuing Indwelling Catheter: Accurate Measurement of Urinary Output in Critically Ill Patients Urinary Catheter Date of Insertion: 01/02/20 Urinary Catheter Time of Insertion: 09:25 Date Urinary Catheter Removed: 01/03/20 Time Urinary Catheter Discontinued: 15:00 Data : 01/04/20 04:55 01/04/20 04:55 A&P Additional A&P Information 84 yr old female 1. s/p colostomy reversal- care as per Dr. Luna -on cl liquids. -await bowel function to return 2. anemia- ESRD and post-op losses- s/p 2 u prbc tx yesterday - hgb was as low as 6.7 and doc to 9.9, now down to 8.3 -low iron sat, ferritin 861 - normal b12, folate levels - high mcv -epogen -per surgery and medicine -monitor hgb, tx prbc if hgb under 7.5 3.met acidosis from ESRD - ESRD- s/p HD yesterday -she is off schedule, repeat HD in am 4. Bone- mineral- metabolism of ESRD -normal phos, ca -await pth 5. hypothyroidism- tsh 0.82 6. normal cortisol level pt seen w/ SCOW CAPTAIN Attestations Medical Necessity Statement*: s/p colostomy reversal, anemia, esrd Time Spent in Patient Care: 16 - 35 minutes Coding Level of Care Code Acute Archivist Military History for Balaji Eli
[2020-01-04] MEDS: HYDROcodone-acetaminophen 5-325 mg Tablet 1 TAB PO ×3 (07:13→20:14)
--- NOTE | 2020-01-04 08:00 | PC.NURSE ---
Right AC IV red and edematous. Lined removed. Catheter intact. Pt tolerated well. Two other IV sites patent and intact as well as art line.
--- NOTE | 2020-01-04 08:06 | P.PN_ITS ---
Subjective Subjective: Interval history: Patient is feeling better today. Her pain is improved. She has more pain with movement, but it is controlled. The patient is able to tolerate liquids by mouth. She has not passed any gas yet. She says she has a tickle in her throat but no productive cough. She denies any chest pains. Vitals/I&O/Wt Last Vital Signs Temp 99.1 F 01/04/20 04:47 Pulse 91 01/04/20 06:00 Resp 19 H 01/04/20 06:00 BP 103/67 01/04/20 06:00 Pulse Ox 96 01/04/20 06:00 01/03/20 01/04/20 01/04/20 22:59 06:59 14:59 Intake Total 430 / 1490 1120 / 2610 Balance 430 / 1490 1120 / 2610 Physical Exam Narrative: EXAM NARRATIVE: General: Awake and alert and oriented x3 Cardiac: Regular rate and rhythm without murmurs Lungs: Clear to auscultation bilaterally without wheezes, crackles or rhonchi Abdomen: Soft, tenderness noted across abdomen. Dressing is clean and dry. Extremities: Mild swelling noted around the right elbow near her IV line. Urinary Catheter Management^: Hahn: Cath Placed During This Visit: yes, but has since been removed by the nurse Reason for Continuing Indwelling Catheter: Accurate Measurement of Urinary Output in Critically Ill Patients Urinary Catheter Date of Insertion: 01/02/20 Urinary Catheter Time of Insertion: 09:25 Date Urinary Catheter Removed: 01/03/20 Time Urinary Catheter Discontinued: 15:00 Data : 01/04/20 04:55 01/04/20 04:55 A&P Assessment and plan (1) Hypotension: Status: Acute (2) End-stage renal disease needing dialysis: Status: Acute Additional A&P Information 1. Status post reversal of ostomy -the patient seems to be doing well with this overall. The patient is currently on oral medications for pain control. The patient has not passed any gas yet. She is tolerating liquids by mouth without nausea. Further recommendations per surgery. The patient may be able to move o ut of the ICU today. Will await surgeries recommendations. 2. Hypotension -the patient's blood pressures are looking better today. Continue with current meds. 3. Anemia -the patient's hemoglobin improved from 6.7-8.3 with 2 units of blood. We will continue to watch to make sure that this does not decrease further. Her platelets are on the lower side. They do not seem to be decreasing significantly, however we will need to be sure that they do not drop further. 4. End-stage renal disease on hemodialysis -per nephrology -patient received dialysis yesterday. Likely further dialysis tomorrow. 5. Depression -okay to continue with citalopram. 6. Hypothyroidism -continue with levothyroxine. 7. Prophylaxis -per recommendations of general surgery in terms of when to start anticoagulants. Due to the patient's anemia, the patient is currently on SCDs. Pepcid for GI prophylaxis. Attestations Medical Necessity Statement*: Patient continues need inpatient care until she passes flatus. Overall she is improving and hopefully can be discharged home over the next 1 to 2 days. Coding Level of Care Code Acute Service Officer for Balaji Eli Diagnoses Hypotension I95.9 End-stage renal disease needing dialysis N18.6; Z99.2
[2020-01-04] MEDS: albuterol 8 gm MDI 1 PUFF INHALATION (09:11)
[2020-01-04] MEDS: levothyroxine 50 mcg Tablet PO (09:46)
[2020-01-04] MEDS: gabapentin 100 mg Capsule PO ×3 (09:46→20:14)
[2020-01-04] MEDS: ferrous sulfate EC 325 mg Tablet PO ×2 (09:46→18:26)
[2020-01-04] MEDS: midodrine 5 mg TABLET PO ×3 (09:46→20:14)
[2020-01-04] MEDS: b-complex-vitamin c Tablet 1 EACH PO (11:29)
--- NOTE | 2020-01-04 14:00 | PC.NURSE ---
Right wrist art line removed per verbal order via Dr Luna. Pressure applied per protocol. Catheter tip intact. Site unremarkable.
--- NOTE | 2020-01-04 14:12 | P.PN_ITS ---
Subjective Subjective: Interval history: Patient has been doing well, denies any nausea or vomiting, pain is well controlled. Patient had a bowel movement today. Vitals/I&O/Wt Last Vital Signs Temp 99.1 F 01/04/20 04:47 Pulse 93 01/04/20 09:11 Resp 16 01/04/20 09:11 BP 124/63 01/04/20 09:00 Pulse Ox 96 01/04/20 09:11 01/03/20 01/04/20 01/04/20 22:59 06:59 14:59 Intake Total 430 / 2610 1120 / 2610 Balance 430 / 2610 1120 / 2610 Physical Exam Narrative: EXAM NARRATIVE: Abdomen: Soft, nondistended, nontender, incision clean dry and intact, no purulent drainage or cellulitis noted Urinary Catheter Management^: Hahn: Cath Placed During This Visit: yes, but has since been removed by the nurse Reason for Continuing Indwelling Catheter: Accurate Measurement of Urinary Output in Critically Ill Patients Urinary Catheter Date of Insertion: 01/02/20 Urinary Catheter Time of Insertion: 09:25 Date Urinary Catheter Removed: 01/03/20 Time Urinary Catheter Discontinued: 15:00 Data : 01/04/20 04:55 01/04/20 04:55 A&P Assessment and plan (1) S/P colostomy takedown: With postop ileus, improving Ambulate with physical therapy Pepcid 20 mg IV twice daily for GI prophylaxis SCD for DVT prophylaxis, start heparin 5000 units subcu twice daily Appreciate help from Dr. Victoria for medical management Status: Acute (2) Thrombocytopenia: Stable, no evidence of active bleeding Status: Acute (3) Acute blood loss anemia: Hemoglobin stable at around 2:08 units Status: Acute (4) Hypotension: Patient had a baseline, awake and alert. Decrease normal saline at 50 cc/h Status: Acute (5) End-stage renal disease needing dialysis: Integrated Circuit Ic Layout Designer consulted, patient received dialysis yesterday Appreciate input from Dr. Ayala Status: Acute Attestations Medical Necessity Statement*: Colostomy takedown postoperative is awaiting return of bowel function Coding Level of Care Code Acute Full Stack Python Developer for [employer] Fwd Diagnoses S/P colostomy takedown Z98.890 Thrombocytopenia D69.6 Acute blood loss anemia D62 Hypotension I95.9 End-stage renal disease needing dialysis N18.6; Z99.2
[2020-01-04] MEDS: ciprofloxacin 400 MG/200 ML PREMIX 200 MG IV (14:35)
[2020-01-04] MEDS: clindamycin 600 MG/50 ML PREMIX 100 MG IV (15:48)
[2020-01-04] MEDS: heparin 5,000 unit/mL INJ 1 mL 5000 UNIT SUBCUT (15:49)
--- NOTE | 2020-01-04 16:49 | PC.NURSE ---
Pt transferred to [facility] via WC. Tolerated well. No S/S of distress. Nurse at bedside to dmitri.
[2020-01-04] MEDS: sennosides 8.6 mg Tablet 17.2 MG PO (20:14)
[2020-01-04] MEDS: albuterol 8 gm MDI 2 PUFF INHALATION (23:05)
[2020-01-05] VITALS (12 sets, daily range): BP systolic 116–146; BP diastolic 54–79; PULSE 73–91; RESP 14–20; TEMP 36.3–38.2; O2SAT 92–99
[2020-01-05] MEDS: sodium chloride 0.9% 1,000 ML 100 ML IV (02:28)
[2020-01-05] MEDS: heparin 5,000 unit/mL INJ 1 mL 5000 UNIT SUBCUT ×2 (02:28→15:03)
--- NOTE | 2020-01-05 04:07 | PC.NURSE ---
pt rested well tonight, with minimal pain. Incision site has some serous drainage, no sign of bleeding/swelling/dehiscence. Patient was mildly confused stating vehemently that there was blood pouring from her port and incision. This did not continue long after reorienting her after inspecting the patients claims.
[2020-01-05 06:26] LABS: Basophils % 0.3 %; Eosinophils % 0.3 %; Hematocrit 25.8 % (37.0-47.0); Hemoglobin 7.7 g/dL (11.5-15.3); Lymphocytes # 0.5 10^3/uL (0.8-4.8); Lymphocytes % 6.4 %; Mean Corpuscular HGB Conc 29.8 g/dL (30.0-36.0); Mean Corpuscular Hemoglobin 31.6 pg (28.0-34.0); Mean Corpuscular Volume 105.7 fL (81-99); Mean Platelet Volume 10.8 fL (7.4-10.4); Monocytes # 0.3 10^3/uL (0.2-0.9); Monocytes % 3.1 %; Neutrophils # 7.1 10^3/uL (1.8-7.7); Neutrophils % 88.8 %; Nucleated Red Blood Cells % 0 %; Platelet Count 80 10^3/cmm (130-400); Red Blood Count 2.44 10^6/uL (4.1-5.3); Red Cell Distribution Width 17.9 % (12.1-15.1)
[2020-01-05 06:35] LABS: Anion Gap 13.7 (5-19); Blood Urea Nitrogen 28 mg/dL (8-23); Calcium 8.7 mg/dL (8.5-10.5); Carbon Dioxide 16 mmol/L (22-29); Chloride 112 mmol/L (98-107); Glucose 63 mg/dL (65-115); Magnesium 2.1 mg/dL (1.7-2.3); Osmolality Calculated 281 mOsm/kg (285-295); Phosphorus 2.5 mg/dL (2.5-4.5); Potassium 3.7 mmol/L (3.5-5.1); Sodium 138 mmol/L (136-145)
--- NOTE | 2020-01-05 07:32 | P.PN_ITS ---
Subjective Subjective: Interval history: feels better. starting to eat. dec abd pain, +BS, +BM Medications: Reviewed: Yes Medication Review Details: Current Medications Acetaminophen (Tylenol) 650 mg PO Q6H PRN PRN Reason: MILD PAIN Hydrocodone Bitart/Acetaminophen ([place] 5-325 Mg) 1 tab PO Q6H PRN PRN Reason: MODERATE PAIN Last Admin: 01/04/20 20:14 Dose: 1 tab Documented by: Albuterol Sulfate (Ventolin) 2 puff INHALATION Q4H.RESPIRATORY PRN PRN Reason: SHORTNESS OF BREATH Last Admin: 01/04/20 23:05 Dose: 2 puff Documented by: Citalopram Hydrobromide (Celexa) 40 mg PO Q48H [facility] Last Admin: 01/03/20 09:46 Dose: 40 mg Documented by: Diphenhydramine HCl (Benadryl) 12.5 mg IVP Q6H PRN PRN Reason: ITCHING Ferrous Sulfate (Ferrous Sulfate) 325 mg PO BIDWM [facility] Last Admin: 01/04/20 18:26 Dose: 325 mg Documented by: Gabapentin (Neurontin) 100 mg PO TID [facility] Last Admin: 01/04/20 20:14 Dose: 100 mg Documented by: Heparin Sodium (Beef Lung) (Heparin) 5,000 unit SUBCUT Q12H [facility] Last Admin: 01/05/20 02:28 Dose: 5,000 unit Documented by: Sodium Chloride (Sodium Chloride 0.9%) 1,000 mls @ 100 mls/hr IV .Q10H [facility] Last Admin: 01/05/20 02:28 Dose: 100 mls/hr Documented by: Acetaminophen (Ofirmev) 1,000 mg in 100 mls @ 400 mls/hr IV Q8H PRN PRN Reason: PAIN Last Infusion: 01/03/20 03:07 Dose: Infused Documented by: Levothyroxine Sodium (Synthroid) 50 mcg PO DAILY [facility] Last Admin: 01/04/20 09:46 Dose: 50 mcg Documented by: Midodrine (Proamatine) 5 mg PO TID [facility] Last Admin: 01/04/20 20:14 Dose: 5 mg Documented by: Morphine Sulfate (Morphine) 2 mg IVP Q1H PRN PRN Reason: SEVERE PAIN Multivitamins (Allbee-C) 1 each PO DAILY [facility] Last Admin: 01/04/20 11:29 Dose: 1 each Documented by: Ondansetron HCl (Zofran) 4 mg PO Q6H PRN PRN Reason: nausea and vomiting Senna (Senna Lax) 17.2 mg PO BEDTIME [facility] Last Admin: 01/04/20 20:14 Dose: 17.2 mg Documented by: Vitals/I&O/Wt Last Vital Signs Temp 98.5 F 01/05/20 04:37 Pulse 84 01/05/20 04:37 Resp 20 H 01/05/20 04:37 BP 125/56 01/05/20 04:37 Pulse Ox 95 01/05/20 04:37 01/04/20 01/05/20 01/05/20 22:59 06:59 14:59 Intake Total 500 / 1530 1000 / 2530 Output Total 600 / 600 Balance 500 / 1530 400 / 1930 Physical Exam Narrative: EXAM NARRATIVE: thin, elderly female in bed, comfortable. NARD vss, afebrile heent- nc/at, eomi, anicteric neck supple lung- b/l good air movement heart reg, +SAMMI, +s1, s2 abd- less tender, bandaged, hypoactive BS- improving ext LUE AVF no thrill or bruit ext no edema neuro- a,a, o x 3 access- rt IJ tunelled catheter Urinary Catheter Management^: Hahn: Cath Placed During This Visit: yes, but has since been removed by the nurse Reason for Continuing Indwelling Catheter: Accurate Measurement of Urinary Output in Critically Ill Patients Urinary Catheter Date of Insertion: 01/02/20 Urinary Catheter Time of Insertion: 09:25 Date Urinary Catheter Removed: 01/03/20 Time Urinary Catheter Discontinued: 15:00 Data : 01/05/20 06:03 01/05/20 06:03 A&P Additional A&P Information 84 yr old female 1. s/p colostomy reversal- care as per Dr. Luna -advance diet as per surgery 2. anemia- ESRD and post-op losses- s/p 2 u prbc tx on 01/03/20 - hgb was as low as 6.7 and doc to 9.9, now down to 7.7 -low iron sat, ferritin 861 - normal b12, folate levels - high mcv -epogen -monitor hgb, may need further prbc tx, if hgb under 7.5 3.met acidosis from ESRD - ESRD- HD MWF, she is off schedule. having trouble w/ catheter- will give cathflo and attempt HDS= today HD today 2.5 hrs, 3k, no fluid removal 4. Bone- mineral- metabolism of ESRD -low phos, normal ca -await pth 5. hypothyroidism- tsh 0.82 6. normal cortisol level pt seen w/ MAKER UP FOLDING and HD RN Attestations Medical Necessity Statement*: s/p surgery- as per Dr. Thomas Time Spent in Patient Care: 16 - 35 minutes Coding Level of Care Code Acute Cold Roll Inspector for Balaji Eli
--- NOTE | 2020-01-05 07:47 | P.PN_ITS ---
Subjective Subjective: Interval history: The patient is feeling better today. Her pain is well controlled with oral medications. The patient has had multiple bowel movements. The patient is able to tolerate liquids by mouth. Vitals/I&O/Wt Last Vital Signs Temp 98.5 F 01/05/20 04:37 Pulse 84 01/05/20 04:37 Resp 20 H 01/05/20 04:37 BP 125/56 01/05/20 04:37 Pulse Ox 95 01/05/20 04:37 01/04/20 01/05/20 01/05/20 22:59 06:59 14:59 Intake Total 500 / 1530 1000 / 2530 Output Total 600 / 600 Balance 500 / 1530 400 / 1930 Physical Exam Narrative: EXAM NARRATIVE: General: Awake and alert and oriented x3 Cardiac: Regular rate and rhythm without murmurs Lungs: Clear to auscultation bilaterally without wheezes, crackles or rhonchi Abdomen: Soft, tenderness noted across abdomen. Dressing is clean and dry. Incision is clean and dry without signs of infection or dehiscence. Extremities: Trace edema. Urinary Catheter Management^: Hahn: Cath Placed During This Visit: yes, but has since been removed by the nurse Reason for Continuing Indwelling Catheter: Accurate Measurement of Urinary Output in Critically Ill Patients Urinary Catheter Date of Insertion: 01/02/20 Urinary Catheter Time of Insertion: 09:25 Date Urinary Catheter Removed: 01/03/20 Time Urinary Catheter Discontinued: 15:00 Data : 01/05/20 06:03 01/05/20 06:03 A&P Assessment and plan (1) Hypotension: Status: Acute (2) End-stage renal disease needing dialysis: Status: Acute Additional A&P Information 1. Status post reversal of ostomy -the patient seems to be doing well with this overall. The patient is currently on oral medications for pain control. The patient has had multiple bowel movements. She is tolerating liquids by mouth without nausea. Further recommendations per surgery. 2. Hypotension -the patient's blood pressures are looking better today. Continue with current meds. 3. Anemia -the patient's hemoglobin improved from 6.7-8.3 with 2 units of blood. It has decreased to 7.7. We will repeat a hemoglobin and if still below 8.0, we will transfuse 1 unit. Her platelets are on the lower side. They do not seem to be decreasing significantly, however we will need to be sure that they do not drop further. 4. End-stage renal disease on hemodialysis -per nephrology -patient received dialysis yesterday. Likely dialysis today. 5. Depression -okay to continue with citalopram. 6. Hypothyroidism -continue with levothyroxine. 7. Prophylaxis -Heparin for DVT prophylaxis. Pepcid for GI prophylaxis. Attestations Medical Necessity Statement*: Patient continues need inpatient care she recovers after surgery. Timing on discharge per surgery. Coding Level of Care Code Acute Technology Project Manager for g Fwd Diagnoses Hypotension I95.9 End-stage renal disease needing dialysis N18.6; Z99.2
[2020-01-05] MEDS: citalopram 20 mg Tablet 40 MG PO (08:01)
[2020-01-05] MEDS: b-complex-vitamin c Tablet 1 EACH PO (08:01)
[2020-01-05] MEDS: midodrine 5 mg TABLET PO ×3 (08:01→22:21)
[2020-01-05] MEDS: ferrous sulfate EC 325 mg Tablet PO ×2 (08:01→17:56)
[2020-01-05] MEDS: levothyroxine 50 mcg Tablet PO (08:01)
[2020-01-05] MEDS: gabapentin 100 mg Capsule PO ×3 (08:01→22:18)
[2020-01-05 08:48] LABS: Basophils % 0.2 %; Eosinophils % 0.3 %; Hematocrit 24.7 % (37.0-47.0); Hemoglobin 7.7 g/dL (11.5-15.3); Lymphocytes # 0.4 10^3/uL (0.8-4.8); Lymphocytes % 6.9 %; Mean Corpuscular HGB Conc 31.2 g/dL (30.0-36.0); Mean Corpuscular Hemoglobin 31.6 pg (28.0-34.0); Mean Corpuscular Volume 101.2 fL (81-99); Mean Platelet Volume 10.6 fL (7.4-10.4); Monocytes # 0.1 10^3/uL (0.2-0.9); Neutrophils # 5.3 10^3/uL (1.8-7.7); Neutrophils % 89.8 %; Nucleated Red Blood Cells % 0 %; Platelet Count 81 10^3/cmm (130-400); Red Blood Count 2.44 10^6/uL (4.1-5.3); Red Cell Distribution Width 17.6 % (12.1-15.1); White Blood Count 5.9 10^3/uL (4.0-10.0)
--- NOTE | 2020-01-05 09:15 | PC.SOCIAL ---
IMM Page 2 of IMM given to patient. Initialed, dated, and timed and placed in chart.
--- NOTE | 2020-01-05 09:25 | P.PN_ITS ---
Subjective Subjective: Interval history: Patient has been doing well, denies any significant pain. Had couple of loose small bowel movements. Denies any distention nausea or vomiting, tolerating full liquid diet Vitals/I&O/Wt Last Vital Signs Temp 98.5 F 01/05/20 08:00 Pulse 73 01/05/20 08:00 Resp 16 01/05/20 08:00 BP 116/69 01/05/20 08:00 Pulse Ox 92 01/05/20 08:00 01/04/20 01/05/20 01/05/20 22:59 06:59 14:59 Intake Total 500 / 2530 1000 / 2530 60 / 60 Output Total 600 / 600 Balance 500 / 1930 400 / 1930 60 / 60 Physical Exam Narrative: EXAM NARRATIVE: Abdomen:, Minimally tender, incisions healing well, Nondistended Urinary Catheter Management^: Hahn: Cath Placed During This Visit: yes, but has since been removed by the nurse Reason for Continuing Indwelling Catheter: Accurate Measurement of Urinary Output in Critically Ill Patients Urinary Catheter Date of Insertion: 01/02/20 Urinary Catheter Time of Insertion: 09:25 Date Urinary Catheter Removed: 01/03/20 Time Urinary Catheter Discontinued: 15:00 Data : 01/05/20 08:35 01/05/20 06:03 A&P Assessment and plan (1) S/P colostomy takedown: With postop ileus, improving Ambulate with physical therapy Pepcid 20 mg IV twice daily for GI prophylaxis SCD for DVT prophylaxis, start heparin 5000 units subcu twice daily Appreciate help from Dr. Victoria for medical management Status: Acute (2) Thrombocytopenia: Stable, no evidence of active bleeding Status: Acute (3) Acute blood loss anemia: Hemoglobin stable at 7.7, may need transfusing 1 unit with dialysis Status: Acute (4) Hypotension: Resolved, patient awake and alert DC IV fluids Status: Acute (5) End-stage renal disease needing dialysis: Resident Care Manager Rn consulted, patient to receive dialysis today Appreciate input from Dr. Ayala Status: Acute Attestations Medical Necessity Statement*: Start dispose colostomy takedown with postop ileus Coding Level of Care Code Acute Appliances Sample Maker for g Fwd Diagnoses S/P colostomy takedown Z98.890 Thrombocytopenia D69.6 Acute blood loss anemia D62 Hypotension I95.9 End-stage renal disease needing dialysis N18.6; Z99.2
[2020-01-05] MEDS: heparin, porcine 1,000 unit/mL INJ 10 mL HE (11:08)
[2020-01-05] MEDS: heparin, porcine 1,000 unit/mL INJ 10 mL 2000 UNIT IV (11:08)
[2020-01-05] MEDS: ondansetron 4 MG Tablet PO (12:02)
[2020-01-05] MEDS: sodium chloride 0.9% (100 ml) 100 ML (12:04)
--- NOTE | 2020-01-05 12:10 | PC.NURSE ---
pt confused at this time, she is yelling out Marisela is that you? Can you flip the breaker? This nurse redirected pt telling her that Marisela is not here, she is alert and oriented to self and place. She is resting well in bed at this time with intermittent confusion. this nurse at bedside administering blood.
[2020-01-05] MEDS: acetaminophen 325 mg Tablet 650 MG PO (17:56)
[2020-01-05 19:11] LABS: Hemoglobin 10.8 g/dL (11.5-15.3)
--- NOTE | 2020-01-05 19:16 | PC.NURSE ---
SHIFT SUMMARY Pt has been confused at times today, she went to dialysis where 1L of fluid was dialyzed. Pt has been tired and resting since then. She has been up and walking to the bathroom with staff assistance. She has received 1 unit of blood this shift, tolerated well. When assisted pt from using the bathroom, a reddened area to R elbow noted, warm to the touch, swollen and painful. Dr. Victoria notified, orders received for blood cultures and venous duplex to [id number]. Temp was noted to be 100.8 at 1545, tylenol given. temp was down to 98.2. Pt had many blankets covering her, some were removed d/t her being warm. When encouraged to ambulate pt yells at staff leave me alone I will get up when I am ready pt educated on the importance of being up and ambulating after surgery, she verbalizes understanding but she has since refused to ambulate with staff.
[2020-01-05] MEDS: sennosides 8.6 mg Tablet 17.2 MG PO (22:21)
[2020-01-06] VITALS (9 sets, daily range): BP systolic 132–177; BP diastolic 60–85; PULSE 71–92; RESP 16–18; TEMP 36.5–36.8; O2SAT 93–98
[2020-01-06] MEDS: ondansetron 4 MG Tablet PO ×3 (02:15→16:01)
[2020-01-06] MEDS: heparin 5,000 unit/mL INJ 1 mL 5000 UNIT SUBCUT ×2 (02:16→16:53)
[2020-01-06 05:15] LABS: Basophils % 0.3 %; Eosinophils % 0.3 %; Hematocrit 30.8 % (37.0-47.0); Hemoglobin 9.8 g/dL (11.5-15.3); Lymphocytes # 0.7 10^3/uL (0.8-4.8); Mean Corpuscular HGB Conc 31.8 g/dL (30.0-36.0); Mean Corpuscular Hemoglobin 31.4 pg (28.0-34.0); Mean Corpuscular Volume 98.7 fL (81-99); Mean Platelet Volume 10.4 fL (7.4-10.4); Monocytes # 0.4 10^3/uL (0.2-0.9); Monocytes % 3.8 %; Neutrophils # 8.6 10^3/uL (1.8-7.7); Neutrophils % 88.2 %; Nucleated Red Blood Cells % 0 %; Platelet Count 108 10^3/cmm (130-400); Red Blood Count 3.12 10^6/uL (4.1-5.3); Red Cell Distribution Width 17.1 % (12.1-15.1); White Blood Count 9.7 10^3/uL (4.0-10.0)
[2020-01-06 05:40] LABS: Alanine Aminotransferase 15 U/L (0-33); Albumin Level 2.7 g/dL (3.5-5.2); Alkaline Phosphatase 71 IU/L (35-105); Anion Gap 20.5 (5-19); Aspartate Amino Transferase 18 U/L (0-32); Blood Urea Nitrogen 17 mg/dL (8-23); Calcium 8.9 mg/dL (8.5-10.5); Carbon Dioxide 21 mmol/L (22-29); Chloride 104 mmol/L (98-107); Globulin 3.2 g/dL (1.3-4.6); Glucose 67 mg/dL (65-115); Osmolality Calculated 289 mOsm/kg (285-295); Phosphorus 2.8 mg/dL (2.5-4.5); Potassium 3.5 mmol/L (3.5-5.1); Sodium 142 mmol/L (136-145); Total Bilirubin 0.9 mg/dL (0.15-1.2); Total Protein 5.9 g/dL (6.6-8.7)
[2020-01-06 05:50] LABS: Parathyroid Hormone 30.7 pg/mL (15-65)
[2020-01-06 06:12] LABS: Calcium 8.5 mg/dL (8.5-10.5)
[2020-01-06] MEDS: gabapentin 100 mg Capsule PO ×3 (09:39→22:03)
[2020-01-06] MEDS: levothyroxine 50 mcg Tablet PO (09:39)
[2020-01-06] MEDS: ferrous sulfate EC 325 mg Tablet PO ×2 (09:39→16:52)
[2020-01-06] MEDS: b-complex-vitamin c Tablet 1 EACH PO (09:39)
[2020-01-06] MEDS: midodrine 5 mg TABLET PO ×2 (09:39→16:52)
--- NOTE | 2020-01-06 11:43 | P.PN_ITS ---
Subjective Subjective: Interval history: Feels nauseated and unable to tolerate a robust diet. No edema and no other volume Sx. No uremic Sx. Passing urine well. Having BMs and denies significant abdo pain. Medications: Reviewed: Yes Medication Review Details: Current Medications Acetaminophen (Tylenol) 650 mg PO Q6H PRN PRN Reason: MILD PAIN Hydrocodone Bitart/Acetaminophen ([place] 5-325 Mg) 1 tab PO Q6H PRN PRN Reason: MODERATE PAIN Last Admin: 01/04/20 20:14 Dose: 1 tab Documented by: Albuterol Sulfate (Ventolin) 2 puff INHALATION Q4H.RESPIRATORY PRN PRN Reason: SHORTNESS OF BREATH Last Admin: 01/04/20 23:05 Dose: 2 puff Documented by: Citalopram Hydrobromide (Celexa) [address] [facility] Last Admin: 01/03/20 09:46 Dose: 40 mg Documented by: Diphenhydramine HCl (Benadryl) 12.5 mg IVP Q6H PRN PRN Reason: ITCHING Ferrous Sulfate (Ferrous Sulfate) [address] [facility] Last Admin: 01/04/20 18:26 Dose: 325 mg Documented by: Gabapentin (Neurontin) [address] [facility] Last Admin: 01/04/20 20:14 Dose: 100 mg Documented by: Heparin Sodium (Beef Lung) (Heparin) 5,[address] [facility] Last Admin: 01/05/20 02:28 Dose: 5,000 unit Documented by: Sodium Chloride (Sodium Chloride 0.9%) 1,000 mls @ 100 mls/hr IV .Q10H [facility] Last Admin: 01/05/20 02:28 Dose: 100 mls/hr Documented by: Acetaminophen (Ofirmev) 1,000 mg in 100 mls @ 400 mls/hr IV Q8H PRN PRN Reason: PAIN Last Infusion: 01/03/20 03:07 Dose: Infused Documented by: Levothyroxine Sodium (Synthroid) [address] [facility] Last Admin: 01/04/20 09:46 Dose: 50 mcg Documented by: Midodrine (Proamatine) [address] [facility] Last Admin: 01/04/20 20:14 Dose: 5 mg Documented by: Morphine Sulfate (Morphine) 2 mg IVP Q1H PRN PRN Reason: SEVERE PAIN Multivitamins (Allbee-C) [address] [facility] Last Admin: 01/04/20 11:29 Dose: 1 each Documented by: Ondansetron HCl (Zofran) 4 mg PO Q6H PRN PRN Reason: nausea and vomiting Senna (Senna Lax) 17.2 mg PO BEDTIME [facility] Last Admin: 01/04/20 20:14 Dose: 17.2 mg Documented by: Vitals/I&O/Wt Last Vital Signs Temp 97.7 F 01/06/20 08:00 Pulse 71 01/06/20 08:15 Resp 18 01/06/20 08:15 BP 138/85 01/06/20 08:00 Pulse Ox 96 01/06/20 08:15 01/05/20 01/06/20 01/06/20 22:59 06:59 14:59 Intake Total 240 / 710 120 / 830 200 / 200 Output Total 200 / 300 600 / 600 Balance 240 / 610 -80 / 530 -400 / -400 Physical Exam Narrative: EXAM NARRATIVE: thin, elderly female in bed, comfortable. NARD vss, afebrile heent- nc/at, eomi, anicteric neck supple lung- b/l good air movement heart reg, +SAMMI, +s1, s2 abd- less tender, bandaged, hypoactive BS- improving ext LUE AVF no thrill or bruit ext no edema neuro- a,a, o x 3 access- rt IJ tunelled catheter Urinary Catheter Management^: Hahn: Cath Placed During This Visit: yes, but has since been removed by the nurse Reason for Continuing Indwelling Catheter: Accurate Measurement of Urinary Output in Critically Ill Patients Urinary Catheter Date of Insertion: 01/02/20 Urinary Catheter Time of Insertion: 09:25 Date Urinary Catheter Removed: 01/03/20 Time Urinary Catheter Discontinued: 15:00 Data : 01/06/20 04:10 01/06/20 04:10 Micro: Microbiology 01/05/20 19:03 Blood Culture - Preliminary Blood SPECIMEN COLLECTED 01/05/20 19:01 Blood Culture - Preliminary Blood SPECIMEN COLLECTED A&P Additional A&P Information 1. ESRD - dialyzed yesterday; low creatinine suggests some residual kidney function - will hold off dialysis tomorrow with plan on evaluation over the weekend - am labs - avoid the usual nephrotoxins 2. S/p colostomy takedown 01/01 - mgmt per Dr Luna - advance diet as tolerated - analgesics 3. Hemodynamics look stable 4. Anemia; mild, serial H/H Exam and interview performed using telemed with the aid of the bedside RN Attestations Medical Necessity Statement*: mgmt of ESRD Coding Level of Care Code Acute Pigment Weigher for Balaji Eli
--- NOTE | 2020-01-06 14:46 | P.PN_ITS ---
Subjective Subjective: Interval history: The patient is having more nausea today. The patient says that she is having hard time holding down food. She is able to hold down liquids okay. The patient also states that she has had more pain in the abdominal region. She said that she felt very chilled and hot overnight. She has had a bowel movement today. Vitals/I&O/Wt Last Vital Signs Temp 98.3 F 01/06/20 12:00 Pulse 81 01/06/20 12:00 Resp 18 01/06/20 12:00 BP 132/81 01/06/20 12:00 Pulse Ox 95 01/06/20 12:00 01/05/20 01/06/20 01/06/20 22:59 06:59 14:59 Intake Total 240 / 710 120 / 830 200 / 200 Output Total 200 / 300 600 / 600 Balance 240 / 610 -80 / 530 -400 / -400 Physical Exam Narrative: EXAM NARRATIVE: General: Awake and oriented x3, mild confusion. Cardiac: Regular rate and rhythm without murmurs Lungs: Clear to auscultation bilaterally without wheezes, crackles or rhonchi Abdomen: Soft, moderate tenderness over the abdomen with signs of erythema and tenderness of the melanie-incisional area especially on the left. Extremities: Trace edema. Urinary Catheter Management^: Hahn: Cath Placed During This Visit: yes, but has since been removed by the nurse Reason for Continuing Indwelling Catheter: Accurate Measurement of Urinary Output in Critically Ill Patients Urinary Catheter Date of Insertion: 01/02/20 Urinary Catheter Time of Insertion: 09:25 Date Urinary Catheter Removed: 01/03/20 Time Urinary Catheter Discontinued: 15:00 Data : 01/06/20 04:10 01/06/20 04:10 Micro: Microbiology 01/05/20 19:03 Blood Culture - Preliminary Blood SPECIMEN COLLECTED 01/05/20 19:01 Blood Culture - Preliminary Blood SPECIMEN COLLECTED A&P Assessment and plan (1) Hypotension: Status: Acute (2) End-stage renal disease needing dialysis: Status: Acute Additional A&P Information 1. Status post reversal of ostomy -the patient had been doing better until today. She seems to be more tender over the melanie-incisional area. Further recommendations per surgery. Blood cultures were drawn on the evening of 01/05/2020. Currently pending. 2. Hypotension -the patient's blood pressures are looking better today. I will decrease her midodrine to twice daily. 3. Anemia -the patient's hemoglobin improved well. The patient has received 3 units of blood. We will watch for further signs of drop, however at this time she does not need further transfusion. 4. End-stage renal disease on hemodialysis -per nephrology -patient received dialysis on 01/05/2020. 5. Depression -okay to continue with citalopram. 6. Hypothyroidism -continue with levothyroxine. 7. Prophylaxis -Heparin for DVT prophylaxis. Pepcid for GI prophylaxis. Attestations Medical Necessity Statement*: Per surgery. Coding Level of Care Code Acute Team Cdl Driver [facility] Diagnoses Hypotension I95.9 End-stage renal disease needing dialysis N18.6; Z99.2
[2020-01-06] MEDS: albuterol 8 gm MDI 2 PUFF INHALATION (15:08)
--- NOTE | 2020-01-06 15:19 | XRR_ITS ---
PROCEDURE INFORMATION: Exam: XR Abdomen, 2 Views Exam date and time: 01/06/2020 4:40 PM Age: 84 years old Clinical indication: Condition or disease; Intestinal condition; Obstruction; Prior surgery; Surgery type: Extensive adhesions; Additional info: Sbo TECHNIQUE: Imaging protocol: XR of the abdomen. Views: 2 Views. COMPARISON: CT Abdomen/[place] [id number] 06/21/2019 5:43 AM FINDINGS: Tubes, catheters and devices: Dual lumen central vascular catheter tip extends to the cavoatrial junction. Lungs: Minor suggestion of opacity in the retrocardiac left lower lung. Gastrointestinal tract: Marked gaseous distention of bowel throughout. Scattered flecks of hyperdense material within bowel most prominent right abdomen. Intraperitoneal space: Numerous central low abdominal and pelvic surgical clips. There are areas of lucency extremely laterally in the right and left abdomen suspicious for possible extraluminal air although is not definitely suggested on the labeled portable upright image. Bones/joints: Osteopenia. Degenerative change of both hips. Soft tissues: Vascular stent overlies the left axillary soft tissues. XR/XR abdomen min 2V [id number] IMPRESSION: 1. Marked distention of bowel diffusely with limited bowel gas pattern assessment. 2. Possible extraluminal air in the right and left abdomen laterally. Correlation for the time duration since surgery is recommended.
--- NOTE | 2020-01-06 15:20 | PM.PN ---
Subjective Subjective: Interval history: Patient has been feeling nauseated, had a small bowel movement, no vomiting Vitals/I&O/Wt Last Vital Signs Temp 98.3 F 01/06/20 12:00 Pulse 81 01/06/20 12:00 Resp 18 01/06/20 12:00 BP 132/81 01/06/20 12:00 Pulse Ox 95 01/06/20 12:00 01/06/20 01/06/20 01/06/20 06:59 14:59 22:59 Intake Total 120 / 830 200 / 200 Output Total 200 / 300 600 / 600 Balance -80 / 530 -400 / -400 Physical Exam Narrative: EXAM NARRATIVE: Abdomen: Soft, nondistended, tender over the incision, incision was probed, no pus noted Urinary Catheter Management^: Hahn: Cath Placed During This Visit: yes, but has since been removed by the nurse Reason for Continuing Indwelling Catheter: Accurate Measurement of Urinary Output in Critically Ill Patients Urinary Catheter Date of Insertion: 01/02/20 Urinary Catheter Time of Insertion: 09:25 Date Urinary Catheter Removed: 01/03/20 Time Urinary Catheter Discontinued: 15:00 Data : 01/06/20 04:10 01/06/20 04:10 Micro: Microbiology 01/05/20 19:03 Blood Culture - Preliminary Blood SPECIMEN COLLECTED 01/05/20 19:01 Blood Culture - Preliminary Blood SPECIMEN COLLECTED A&P Assessment and plan (1) S/P colostomy takedown: Patient has been doing well denies any significant pain complaints of nausea. Had a bowel movement yesterday, tolerating a liquid diet. Due for dialysis today. Continue clindamycin and Cipro which have been discontinued for some reason Repeat labs tomorrow cargo services coordinator consult since patient did not think she is ready to go home Heparin for DVT prophylaxis DC IV fluids Status: Acute Attestations Medical Necessity Statement*: Status post colostomy takedown with with persistent nausea requiring 1 more night of inpatient stay Coding Level of Care Code Acute Materials Engineering Technician for Chg Fwd Diagnoses S/P colostomy takedown Z98.890
[2020-01-06] MEDS: acetaminophen 325 mg Tablet 650 MG PO (16:52)
[2020-01-06] MEDS: ciprofloxacin 400 MG/200 ML PREMIX 200 MG IV (16:53)
--- NOTE | 2020-01-06 17:54 | USCV_ITS ---
Rama Escobar Age: 84 Gender: F : 1935 Exam Date: 01/06/2020 07:20 Ordering Phys: Iban Victoria MD Technologist: Jeannie Gutierrez Exam Location: [facility] [place] Indication: SWELLING HISTORY: Upper extremity swelling. PROCEDURES: Venous duplex imaging was performed in only the right upper extremity. The following venous structures were evaluated: internal jugular vein, subclavian vein, axillary vein, and brachial veins. In addition, the basilic vein, cephalic vein, radial vein, and ulnar vein. Serial compression, augmentation maneuvers, and spectral Doppler flow evaluation were performed. FINDINGS: Normal 2-D, color Doppler and phasicity noted in ther right upper extremity venous system extending from the right internal jugular vein through the main forearm. No thrombosis or occlusion noted. CONCLUSIONS No right upper extremity DVT. Dr. Marissa Mae DO (Electronically Signed) Final Date: 06 January 2020 08:11 S
[2020-01-06] MEDS: clindamycin 600 MG/50 ML PREMIX 100 MG IV (18:00)
[2020-01-06] MEDS: sennosides 8.6 mg Tablet 17.2 MG PO (22:03)
[2020-01-07] VITALS (8 sets, daily range): BP systolic 113–151; BP diastolic 71–86; PULSE 72–94; RESP 16–20; TEMP 36.6–37.1; O2SAT 93–96
[2020-01-07] MEDS: ondansetron 4 MG Tablet PO ×2 (00:21→16:06)
[2020-01-07] MEDS: clindamycin 600 MG/50 ML PREMIX 100 MG IV ×3 (02:00→19:41)
[2020-01-07] MEDS: heparin 5,000 unit/mL INJ 1 mL 5000 UNIT SUBCUT ×2 (02:00→16:05)
[2020-01-07] MEDS: ciprofloxacin 400 MG/200 ML PREMIX 200 MG IV ×2 (04:15→16:05)
[2020-01-07 06:23] LABS: Basophils % 0.2 %; Eosinophils % 0.1 %; Hematocrit 38.6 % (37.0-47.0); Hemoglobin 11.8 g/dL (11.5-15.3); Lymphocytes # 0.8 10^3/uL (0.8-4.8); Lymphocytes % 8.3 %; Mean Corpuscular HGB Conc 30.6 g/dL (30.0-36.0); Mean Corpuscular Hemoglobin 31.6 pg (28.0-34.0); Mean Corpuscular Volume 103.2 fL (81-99); Mean Platelet Volume 10.3 fL (7.4-10.4); Monocytes # 0.6 10^3/uL (0.2-0.9); Monocytes % 6.1 %; Neutrophils # 7.9 10^3/uL (1.8-7.7); Neutrophils % 84.4 %; Nucleated Red Blood Cells % 0 %; Platelet Count 105 10^3/cmm (130-400); Red Blood Count 3.74 10^6/uL (4.1-5.3); Red Cell Distribution Width 16.4 % (12.1-15.1); White Blood Count 9.3 10^3/uL (4.0-10.0)
[2020-01-07 06:41] LABS: Alanine Aminotransferase 14 U/L (0-33); Albumin Level 2.5 g/dL (3.5-5.2); Alkaline Phosphatase 59 IU/L (35-105); Anion Gap 18.4 (5-19); Aspartate Amino Transferase 18 U/L (0-32); Blood Urea Nitrogen 24 mg/dL (8-23); Calcium 8.8 mg/dL (8.5-10.5); Carbon Dioxide 20 mmol/L (22-29); Chloride 101 mmol/L (98-107); Globulin 3.6 g/dL (1.3-4.6); Glucose 151 mg/dL (65-115); Magnesium 2.2 mg/dL (1.7-2.3); Osmolality Calculated 282 mOsm/kg (285-295); Phosphorus 2.8 mg/dL (2.5-4.5); Potassium 3.4 mmol/L (3.5-5.1); Sodium 136 mmol/L (136-145); Total Bilirubin 0.8 mg/dL (0.15-1.2); Total Protein 6.1 g/dL (6.6-8.7)
[2020-01-07] MEDS: levothyroxine 50 mcg Tablet PO (08:35)
[2020-01-07] MEDS: gabapentin 100 mg Capsule PO ×3 (08:35→22:38)
[2020-01-07] MEDS: midodrine 5 mg TABLET PO ×2 (08:35→16:06)
[2020-01-07] MEDS: b-complex-vitamin c Tablet 1 EACH PO (08:35)
[2020-01-07] MEDS: citalopram 20 mg Tablet 40 MG PO (08:35)
[2020-01-07] MEDS: ferrous sulfate EC 325 mg Tablet PO ×2 (08:35→16:05)
--- NOTE | 2020-01-07 09:20 | PC.SOCIAL ---
IMM Update Pg. 2 of IMM given and explained to patient, who verbalized understanding. Initialed, dated, and timed and placed in chart.
--- NOTE | 2020-01-07 10:23 | PM.PN ---
Subjective Subjective: Interval history: Feels nauseated and unable to tolerate a robust diet, asking for anti-emetics. No edema and no other volume Sx. No uremic Sx. Passing urine well. Having BMs and denies significant abdo pain. Medications: Reviewed: Yes Medication Review Details: Current Medications Acetaminophen (Tylenol) 650 mg PO Q6H PRN PRN Reason: MILD PAIN Hydrocodone Bitart/Acetaminophen ([place] 5-325 Mg) 1 tab PO Q6H PRN PRN Reason: MODERATE PAIN Last Admin: 01/04/20 20:14 Dose: 1 tab Documented by: Albuterol Sulfate (Ventolin) 2 puff INHALATION Q4H.RESPIRATORY PRN PRN Reason: SHORTNESS OF BREATH Last Admin: 01/04/20 23:05 Dose: 2 puff Documented by: Citalopram Hydrobromide (Celexa) 40 mg PO Q48H [facility] Last Admin: 01/03/20 09:46 Dose: 40 mg Documented by: Diphenhydramine HCl (Benadryl) 12.5 mg IVP Q6H PRN PRN Reason: ITCHING Ferrous Sulfate (Ferrous Sulfate) 325 mg PO BIDWM [facility] Last Admin: 01/04/20 18:26 Dose: 325 mg Documented by: Gabapentin (Neurontin) 100 mg PO TID [facility] Last Admin: 01/04/20 20:14 Dose: 100 mg Documented by: Heparin Sodium (Beef Lung) (Heparin) 5,000 unit SUBCUT Q12H [facility] Last Admin: 01/05/20 02:28 Dose: 5,000 unit Documented by: Sodium Chloride (Sodium Chloride 0.9%) 1,000 mls @ 100 mls/hr IV .Q10H [facility] Last Admin: 01/05/20 02:28 Dose: 100 mls/hr Documented by: Acetaminophen (Ofirmev) 1,000 mg in 100 mls @ 400 mls/hr IV Q8H PRN PRN Reason: PAIN Last Infusion: 01/03/20 03:07 Dose: Infused Documented by: Levothyroxine Sodium (Synthroid) 50 mcg PO DAILY [facility] Last Admin: 01/04/20 09:46 Dose: 50 mcg Documented by: Midodrine (Proamatine) 5 mg PO TID [facility] Last Admin: 01/04/20 20:14 Dose: 5 mg Documented by: Morphine Sulfate (Morphine) 2 mg IVP Q1H PRN PRN Reason: SEVERE PAIN Multivitamins (Allbee-C) 1 each PO DAILY [facility] Last Admin: 01/04/20 11:29 Dose: 1 each Documented by: Ondansetron HCl (Zofran) 4 mg PO Q6H PRN PRN Reason: nausea and vomiting Senna (Senna Lax) 17.2 mg PO BEDTIME [facility] Last Admin: 01/04/20 20:14 Dose: 17.2 mg Documented by: Vitals/I&O/Wt Last Vital Signs Temp 97.9 F 01/07/20 08:00 Pulse 90 01/07/20 08:41 Resp 17 01/07/20 08:41 BP 113/71 01/07/20 08:00 Pulse Ox 93 01/07/20 08:41 01/06/20 01/07/20 01/07/20 22:59 06:59 14:59 Intake Total 250 / 470 290 / 760 Output Total 400 / 1000 Balance 250 / -130 -110 / -240 Physical Exam Narrative: EXAM NARRATIVE: thin, elderly female in bed, comfortable. NARD vss, afebrile heent- nc/at, eomi, anicteric neck supple lung- b/l good air movement heart reg, +SAMMI, +s1, s2 abd- less tender, bandaged, hypoactive BS- improving ext LUE AVF no thrill or bruit ext no edema neuro- a,a, o x 3 access- rt IJ tunelled catheter Urinary Catheter Management^: Hahn: Cath Placed During This Visit: yes, but has since been removed by the nurse Reason for Continuing Indwelling Catheter: Accurate Measurement of Urinary Output in Critically Ill Patients Urinary Catheter Date of Insertion: 01/02/20 Urinary Catheter Time of Insertion: 09:25 Date Urinary Catheter Removed: 01/03/20 Time Urinary Catheter Discontinued: 15:00 Data : 01/07/20 05:33 01/07/20 05:33 Micro: Microbiology 01/05/20 19:03 Blood Culture - Preliminary Blood NEGATIVE TO DATE 01/05/20 19:01 Blood Culture - Preliminary Blood NEGATIVE TO DATE A&P Additional A&P Information 1. ESRD - dialyzed 01/04; low creatinine suggests some residual kidney function and creatinine has increased from 1.5 to 1.6 with UO of 1L - will hold off dialysis with plan to continue to monitor renal function, are we looking at renal recovery? - am labs - avoid the usual nephrotoxins 2. S/p colostomy takedown 01/01 - mgmt per Dr Luan - advance diet as tolerated - analgesics 3. Hemodynamics look stable 4. Anemia; mild, serial H/H 5. HypoK, 20mEq replacement therapy Exam and interview performed using telemed with the aid of the bedside RN Attestations Medical Necessity Statement*: eval for ESRD Coding Level of Care Code Acute Line Locator for Chantalg Alcira
--- NOTE | 2020-01-07 11:39 | P.PN_ITS ---
Subjective Subjective: Interval history: Patient complains dependent of nausea, no significant abdominal pain, had couple bowel movements today Vitals/I&O/Wt Last Vital Signs Temp 98.0 F 01/07/20 11:35 Pulse 92 01/07/20 11:35 Resp 16 01/07/20 11:35 BP 151/86 01/07/20 11:35 Pulse Ox 96 01/07/20 11:35 01/06/20 01/07/20 01/07/20 22:59 06:59 14:59 Intake Total 250 / 760 290 / 760 Output Total 400 / 1000 Balance 250 / -240 -110 / -240 Physical Exam Narrative: EXAM NARRATIVE: Abdomen: Soft, nondistended, minimally tender, incisions healing well Urinary Catheter Management^: Hahn: Cath Placed During This Visit: yes, but has since been removed by the nurse Reason for Continuing Indwelling Catheter: Accurate Measurement of Urinary Ou tput in Critically Ill Patients Urinary Catheter Date of Insertion: 01/02/20 Urinary Catheter Time of Insertion: 09:25 Date Urinary Catheter Removed: 01/03/20 Time Urinary Catheter Discontinued: 15:00 Data : 01/07/20 05:33 01/07/20 05:33 Micro: Microbiology 01/05/20 19:03 Blood Culture - Preliminary Blood NEGATIVE TO DATE 01/05/20 19:01 Blood Culture - Preliminary Blood NEGATIVE TO DATE A&P Assessment and plan (1) S/P colostomy takedown: Abdominal x-ray showed dilated small bowel loops and free air consistent with postop changes and postop ileus. Change from GI soft diet to full liquid diet Add nephro for nutritional supplement Daily labs Ambulate with physical therapy Hemoglobin is stable, continue heparin 5000 subcu twice daily Appreciate input from Dr. Shultz and nephrology service Status: Acute Attestations Medical Necessity Statement*: Postop ileus status post colostomy takedown Coding Level of Care Code Acute Engraved Roller Inspector for Chg Fwd Diagnoses S/P colostomy takedown Z98.890
[2020-01-07] MEDS: potassium chloride ER 10 mEq Tablet 20 MEQ PO (12:38)
--- NOTE | 2020-01-07 14:43 | P.PN_ITS ---
Subjective Subjective: Interval history: Complains of nausea. States this is a chronic problem but worse at the moment. Has not vomited. Does not like her biscuits. Does not think the nausea medicine is working. States pain is sometimes okay and sometimes not. Vitals/I&O/Wt Last Vital Signs Temp 98.0 F 01/07/20 11:35 Pulse 92 01/07/20 11:35 Resp 16 01/07/20 11:35 BP 151/86 01/07/20 11:35 Pulse Ox 96 01/07/20 11:35 01/06/20 01/07/20 01/07/20 22:59 06:59 14:59 Intake Total 250 / 470 290 / 760 Output Total 400 / 1000 Balance 250 / -130 -110 / -240 Physical Exam Narrative: EXAM NARRATIVE: Looks both chronically ill and acutely uncomfortable. Lungs are clear, regular rhythm, abdomen is soft. Surgical scars are intact although there is some surrounding erythema and dried blood, decreased bowel sounds. No pitting edema. No tremors. Urinary Catheter Management^: Hahn: Cath Placed During This Visit: yes, but has since been removed by the nurse Reason for Continuing Indwelling Catheter: Accurate Measurement of Urinary O utput in Critically Ill Patients Urinary Catheter Date of Insertion: 01/02/20 Urinary Catheter Time of Insertion: 09:25 Date Urinary Catheter Removed: 01/03/20 Time Urinary Catheter Discontinued: 15:00 Data : 01/07/20 05:33 01/07/20 05:33 Micro: Microbiology 01/05/20 19:03 Blood Culture - Preliminary Blood NEGATIVE TO DATE 01/05/20 19:01 Blood Culture - Preliminary Blood NEGATIVE TO DATE A&P Assessment and plan (1) S/P colostomy takedown: Status: Acute (2) Hypotension: Status: Resolved (3) Acute blood loss anemia: Is post transfusion, hemoglobin up today after dialysis yesterday Status: Acute (4) End-stage renal disease needing dialysis: Status: Acute (5) Hypothyroidism: Status: Acute (6) Anxiety: Currently off of home alprazolam. Looks to have been taking this for about a year. At least in terms of records I can see for prescriptions that were prescribed Status: Acute Additional A&P Information Will restart as needed alprazolam Currently has Zofran and Benadryl as needed Try IM Phenergan if nausea with vomiting persists Remains on antibiotics Receiving lactulose and senna Nephrology is following On home iron, levothyroxine, Midrin, multivitamin Subcu heparin for DVT prophylaxis PT is working with her Supportive care otherwise New to follow Full code Attestations Medical Necessity Statement*: As per surgery Coding Level of Care Code Acute Tanning Drum Operator for Chg Fwd Diagnoses S/P colostomy takedown Z98.890 Hypotension I95.9 Acute blood loss anemia D62 End-stage renal disease needing dialysis N18.6; Z99.2 Hypothyroidism E03.9 Anxiety F41.9
--- NOTE | 2020-01-07 15:34 | PC.CHAP ---
Pastoral Care Encounter/Spiritual Assessment Type of Contact [] Declined silver wrapper visit [] Patient/Family/Request visit [] Outpatient visit [] Follow-up visit [] Physician referral [] Code/Alert [] Routine visit [] Staff referral [] Actively dying [] Patient sleeping [] Family support [] [] Out of room [] Palliative care [] [] Receiving care in room [] Pre-surgical visit [] Trauma [] Long length of stay [] ICU visit [] Other: Relational/Emotional Strength [] Patient feels connected with others/family/visitors/staff [] Distress [] Loneliness/isolation [] Abandonment Spirituality of Patient [] Person of Drea [] Attends Pentecostal of their Drea [] Believes in Prayer [] Reads Bible or Pentecostal materials [] There are Spiritual issues to be addressed Insurance Consultant Interventions [] Prayer [] Active listening [] Non-anxious presence [] Spiritual/emotional support [] Crisis/trauma care [] Spiritual counseling [] Bereavement support [] Provided bereavement packet [] Provided Bible/devotional materials [] Provided toy/stuffed animal, coloring book to patient or family member [] Provided Communion [] Anointing/[place] [] Salvation [] Completed spiritual assessment [] Other: Impact on Illness or Injury [] Angry [] Fearful [] Anxious [] Often cries [] Exhaustion [] Unable to work [] Unable to attend rastafari [] Unable to walk/stand [] Unable to read [] Unable to drive [] Unable to eat/drink [] Unable to sleep [] Unable to be with family [] Patient intubated [] Other: Summary PRECAUTIONS Time spent with patient
[2020-01-07] MEDS: sennosides 8.6 mg Tablet 17.2 MG PO (22:38)
[2020-01-08] VITALS (7 sets, daily range): BP systolic 108–148; BP diastolic 62–83; PULSE 59–88; RESP 16–20; TEMP 36.4–37; O2SAT 92–97
[2020-01-08] MEDS: heparin 5,000 unit/mL INJ 1 mL 5000 UNIT SUBCUT (03:02)
[2020-01-08] MEDS: ciprofloxacin 400 MG/200 ML PREMIX 200 MG IV (03:36)
[2020-01-08] MEDS: clindamycin 600 MG/50 ML PREMIX 100 MG IV (05:22)
[2020-01-08 06:11] LABS: Basophils % 0.3 %; Eosinophils % 0.7 %; Hemoglobin 10.2 g/dL (11.5-15.3); Lymphocytes # 0.7 10^3/uL (0.8-4.8); Lymphocytes % 11.7 %; Mean Corpuscular HGB Conc 31.9 g/dL (30.0-36.0); Mean Corpuscular Hemoglobin 31.8 pg (28.0-34.0); Mean Corpuscular Volume 99.7 fL (81-99); Mean Platelet Volume 10.9 fL (7.4-10.4); Monocytes # 0.5 10^3/uL (0.2-0.9); Monocytes % 7.9 %; Neutrophils # 4.5 10^3/uL (1.8-7.7); Neutrophils % 78.2 %; Nucleated Red Blood Cells % 0 %; Platelet Count 121 10^3/cmm (130-400); Red Blood Count 3.21 10^6/uL (4.1-5.3); Red Cell Distribution Width 15.9 % (12.1-15.1); White Blood Count 5.8 10^3/uL (4.0-10.0)
[2020-01-08 06:35] LABS: Alanine Aminotransferase 13 U/L (0-33); Albumin Level 2.7 g/dL (3.5-5.2); Alkaline Phosphatase 49 IU/L (35-105); Anion Gap 14.8 (5-19); Aspartate Amino Transferase 16 U/L (0-32); Blood Urea Nitrogen 25 mg/dL (8-23); Calcium 8.4 mg/dL (8.5-10.5); Carbon Dioxide 23 mmol/L (22-29); Chloride 104 mmol/L (98-107); Globulin 2.9 g/dL (1.3-4.6); Glucose 106 mg/dL (65-115); Osmolality Calculated 283 mOsm/kg (285-295); Potassium 3.8 mmol/L (3.5-5.1); Sodium 138 mmol/L (136-145); Total Bilirubin 0.7 mg/dL (0.15-1.2); Total Protein 5.6 g/dL (6.6-8.7)
--- NOTE | 2020-01-08 06:53 | PC.NURSE ---
Shift Summary Patient did well getting up and down to use the bathroom. This nurse did patient education on using a pillow to brace her abd when moving. Patient did have a few small loose dark tarry stools.
--- NOTE | 2020-01-08 07:51 | PM.PN ---
Subjective Subjective: Interval history: Patient continues to have bowel movements, no vomiting but still has some nausea. Vitals/I&O/Wt Last Vital Signs Temp 97.6 F 01/08/20 07:44 Pulse 78 01/08/20 07:44 Resp 18 01/08/20 07:44 BP 136/62 01/08/20 07:44 Pulse Ox 94 01/08/20 07:44 01/07/20 01/08/20 01/08/20 22:59 06:59 14:59 Intake Total 470 / 1540 780 / 1540 Balance 470 / 1540 780 / 1540 Physical Exam Narrative: EXAM NARRATIVE: Abdomen: Soft, tender, nondistended, incisions healing well Urinary Catheter Management^: Hahn: Cath Placed During This Visit: yes, but has since been removed by the nurse Reason for Continuing Indwelling Catheter: Accurate Measurement of Urinary Output in Critically Ill Patients Urinary Catheter Date of Insertion: 01/02/20 Urinary Catheter Time of Insertion: 09:25 Date Urinary Catheter Removed: 01/03/20 Time Urinary Catheter Discontinued: 15:00 Data : 01/08/20 05:38 01/08/20 05:38 A&P Assessment and plan (1) S/P colostomy takedown: Continue on full liquid diet and nutritional supplements Add nephro for nutritional supplement Patient feels ready to go home with home health Maintain bowel regimen Status: Acute Attestations Medical Necessity Statement*: DC home today Coding Level of Care Code Acute Pharmacy Grad Intern for Chg Fwd Diagnoses S/P colostomy takedown Z98.890
--- NOTE | 2020-01-08 07:51 | PM.DCS ---
Discharge Providers Date of Admission: 01/02/20 17:15 Date of Discharge: January 08, 2020 Attending Provider at Admission: Jonah Luna MD Attending Provider at Discharge: Jonah Luna MD Primary Care Provider: Iban Victoria MD Diagnoses at Discharge Discharge Diagnosis (1) S/P colostomy takedown: Status: Acute (2) Hypotension: Status: Resolved (3) Acute blood loss anemia: Status: Resolved (4) End-stage renal disease needing dialysis: Status: Acute (5) Hypothyroidism: Status: Chronic (6) Anxiety: Status: Resolved Hospital Course Hospital Course: This is a 84-year-old female who had undergone sigmoid colectomy for perforated diverticulitis in May 2019. Patient was scheduled for elective colostomy takedown. Patient underwent partial colectomy, lysis of adhesions and colostomy takedown on 01/02/2020. Over the course of the next 3 days patient had return of bowel function where she was having daily bowel movements. Patient continued to complain of nausea otherwise a chronic issue that she has been dealing with. Her nutritional intake was not significant though she always had a poor appetite even prior to surgery. Patient received couple units of PRBC and was on dialysis during her hospital stay. At time of discharge she was tolerating liquid diet, ambulating with physical therapy and her pain is reasonably controlled. Her vital signs are stable and her incisions are clean dry and intact. Physical Exam Urinary Catheter Management^: Hahn: Cath Placed During This Visit: yes, but has since been removed by the nurse Reason for Continuing Indwelling Catheter: Accurate Measurement of Urinary Output in Critically Ill Patients Urinary Catheter Date of Insertion: 01/02/20 Urinary Catheter Time of Insertion: 09:25 Date Urinary Catheter Removed: 01/03/20 Time Urinary Catheter Discontinued: 15:00 Discharge Data Data Completed and Pending: Completed Studies During Hospitalization Category Date Time Status XR abdomen min 2V [id number] Urgent Exams 01/06/20 15:19 Completed XR chest 1V gloria ble [id number] Routine Exams 01/03/20 08:58 Completed Pathology: Surgic al [PTH] Routine Pth 01/02/20 14:36 [place] [id number] Routin e Ultrasound 01/06/20 17:54 Completed Pending at discharge Category Date Time Status Blood Culture Sta t Lab 01/05/20 19:03 Results Leukocyte Reduced RBC Routine Lab 01/05/20 05:33 Results Type and Screen R outine Lab 01/05/20 05:33 Results Labs from last 24 hours 01/08/20 01/08/20 01/05/20 05:38 05:38 05:33 WBC 5.8 RBC 3.21 L Hgb 10.2 L Hct 32.0 L MCV 99.7 H MCH 31.8 MCHC 31.9 RDW 15.9 H Plt Count 121 L MPV 10.9 H Neut % (Auto) 78.2 Lymph % (Auto) 11.7 [place] % (Auto) 7.9 Eos % (Auto) 0.7 Baso % (Auto) 0.3 Neut # (Auto) 4.5 Lymph # (Auto) 0.7 L [place] # (Auto) 0.5 Eos # (Auto) 0.0 Baso # (Auto) 0.0 Nucleated RBC % (a uto) 0 Nucleated RBCs # 0.0 Sodium 138 Potassium 3.8 Chloride 104 Carbon Dioxide 23 Anion Gap 14.8 BUN 25 H Creatinine 1.7 H Glucose 106 Calculated Osmolal ity 283 L Calcium 8.4 L Total Bilirubin 0.7 AST 16 ALT 13 Alkaline Phosphata se 49 Total Protein 5.6 L Albumin 2.7 L Globulin 2.9 Blood Type A Negative Rho(D) Type Negative Antibody Screen Negative Crossmatch See Detail Vitals: Last Vital Signs Temp 97.6 F 01/08/20 07:44 Pulse 78 01/08/20 07:44 Resp 18 01/08/20 07:44 BP 136/62 01/08/20 07:44 Pulse Ox 94 01/08/20 07:44 Discharge Plan Discharge Patient Disposition: Home Health Service Condition: Stable Prescriptions: New Flagyl 500 mg tablet 500 mg PO Q8H 5 Days Qty: 15 RF: 0 Colace 100 mg capsule 100 mg PO BID Qty: 30 RF: 0 Levaquin 500 mg tablet 500 mg PO DAILY 5 Days RF: 0 [place] 5-325 mg tablet 1 tab PO Q6H 7 Days Qty: 20 RF: 0 Lactobacillus acidophilus Capsule 460 mg PO BID Qty: 60 RF: 0 Zofran 4 mg tablet 4 mg PO Q6H PRN (Reason: nausea and vomiting) Qty: 30 RF: 0 Continued gabapentin 100 mg capsule See Rx Instructions PO .COMPLEX RF: 0 tramadol 50 mg tablet 50 mg PO QDAY PRN (Reason: Pain) RF: 0 citalopram [Celexa] 40 mg tablet 40 mg PO .COMPLEX RF: 0 prenat.vits,yana,mxj-svwp-ktexj Tablet 1 tab PO QDAY RF: 0 levothyroxine [Synthroid] 50 mcg tablet 50 mcg PO QDAY RF: 0 albuterol sulfate [Ventolin HFA] 90 mcg/actuation HFA aerosol inhaler 1 inh INHALATION ONCE RF: 0 alprazolam [Xanax] 0.5 mg tablet 0.5 mg PO BID RF: 0 midodrine 5 mg tablet 5 mg PO TID RF: 0 aspirin 325 mg Tablet 325 mg PO DAILY RF: 0 Discontinued erythromycin 500 mg tablet 500 mg PO .COMPLEX Qty: 3 RF: 0 neomycin 500 mg tablet 1 gm PO .COMPLEX Qty: 6 RF: 0 Discharge Orders: Discharge Order (Routine); Ordered 01/08/20 Ordered By: Jonah Luna Referrals: Jonah Luna MD [Physician] - 7-10 days (For removal of reji) Iban Victoria MD [Primary Care Provider] - 2 weeks Discharge Diet: Advance as tolerated Patient Instructions: Hydrocodone/Acetaminophen (By mouth), Metronidazole (By mouth), Laxative, Stool Softeners (By mouth), Levofloxacin (By mouth), Laparoscopic Colostomy Reversal (DC) Activity Restrictions/Additional Instructions: 1. Up and walking as tolerated. 2. Ok to shower in 48 hours 3. Do not lift more than 10 pounds. 4. Do not operate heavy machinery or drive while using pain medications. 5. Advised to return to ER or contact my office if there are any signs of infection like, increasing pain, fevers, chills, redness or drainage of pus. Discharge Date/Time: 01/08/20 15:30 Discharge Attestations Time Spent in Discharge Care*: less than 30 min Quality Metrics Clinical Quality Measures During this hospital stay, did patient experience: None Coding Level of Care Code Acute Railroad Crane Operator for Chg Fwd Diagnoses S/P colostomy takedown Z98.890 Hypotension I95.9 Acute blood loss anemia D62 End-stage renal disease needing dialysis N18.6; Z99.2 Hypothyroidism E03.9 Anxiety F41.9
[2020-01-08] MEDS: levothyroxine 50 mcg Tablet PO (08:48)
[2020-01-08] MEDS: gabapentin 100 mg Capsule PO (08:48)
[2020-01-08] MEDS: midodrine 5 mg TABLET PO (08:48)
[2020-01-08] MEDS: ferrous sulfate EC 325 mg Tablet PO (08:48)
[2020-01-08] MEDS: b-complex-vitamin c Tablet 1 EACH PO (08:48)
[2020-01-08] MEDS: acetaminophen 325 mg Tablet 650 MG PO (08:59)
--- NOTE | 2020-01-08 10:12 | P.PN_ITS ---
Subjective Subjective: Interval history: complaining of diarrhea today. Eating and drinking ok. No edema and no other volume assoc Sx. No uremic Sx. Hemodynamics ok. Passing urine but this is not being recorded Medications: Reviewed: Yes Medication Review Details: Current Medications Acetaminophen (Tylenol) 650 mg PO Q6H PRN PRN Reason: MILD PAIN Hydrocodone Bitart/Acetaminophen ([place] 5-325 Mg) 1 tab PO Q6H PRN PRN Reason: MODERATE PAIN Last Admin: 01/04/20 20:14 Dose: 1 tab Documented by: Albuterol Sulfate (Ventolin) 2 puff INHALATION Q4H.RESPIRATORY PRN PRN Reason: SHORTNESS OF BREATH Last Admin: 01/04/20 23:05 Dose: 2 puff Documented by: Citalopram Hydrobromide (Celexa) 40 mg PO Q48H [facility] Last Admin: 01/03/20 09:46 Dose: 40 mg Documented by: Diphenhydramine HCl (Benadryl) 12.5 mg IVP Q6H PRN PRN Reason: ITCHING Ferrous Sulfate (Ferrous Sulfate) 325 mg PO BIDWM [facility] Last Admin: 01/04/20 18:26 Dose: 325 mg Documented by: Gabapentin (Neurontin) 100 mg PO TID [facility] Last Admin: 01/04/20 20:14 Dose: 100 mg Documented by: Heparin Sodium (Beef Lung) (Heparin) 5,000 unit SUBCUT Q12H [facility] Last Admin: 01/05/20 02:28 Dose: 5,000 unit Documented by: Sodium Chloride (Sodium Chloride 0.9%) 1,000 mls @ 100 mls/hr IV .Q10H [facility] Last Admin: 01/05/20 02:28 Dose: 100 mls/hr Documented by: Acetaminophen (Ofirmev) 1,000 mg in 100 mls @ 400 mls/hr IV Q8H PRN PRN Reason: PAIN Last Infusion: 01/03/20 03:07 Dose: Infused Documented by: Levothyroxine Sodium (Synthroid) 50 mcg PO DAILY [facility] Last Admin: 01/04/20 09:46 Dose: 50 mcg Documented by: Midodrine (Proamatine) 5 mg PO TID [facility] Last Admin: 01/04/20 20:14 Dose: 5 mg Documented by: Morphine Sulfate (Morphine) 2 mg IVP Q1H PRN PRN Reason: SEVERE PAIN Multivitamins (Allbee-C) 1 each PO DAILY [facility] Last Admin: 01/04/20 11:29 Dose: 1 each Documented by: Ondansetron HCl (Zofran) 4 mg PO Q6H PRN PRN Reason: nausea and vomiting Senna (Senna Lax) 17.2 mg PO BEDTIME [place] Last Admin: 01/04/20 20:14 Dose: 17.2 mg Documented by: Vitals/I&O/Wt Last Vital Signs Temp 97.6 F 01/08/20 07:44 Pulse 74 01/08/20 08:31 Resp 16 01/08/20 08:31 BP 136/62 01/08/20 07:44 Pulse Ox 93 01/08/20 08:31 01/07/20 01/08/20 01/08/20 22:59 06:59 14:59 Intake Total 470 / 760 780 / 1540 360 / 360 Balance 470 / 760 780 / 1540 360 / 360 Physical Exam Narrative: EXAM NARRATIVE: thin, elderly female in bed, comfortable. NARD vss, afebrile heent- nc/at, eomi, anicteric neck supple lung- b/l good air movement heart reg, +SAMMI, +s1, s2 abd- less tender, bandaged, hypoactive BS- improving ext LUE AVF no thrill or bruit ext no edema neuro- a,a, o x 3 access- rt IJ tunelled catheter Urinary Catheter Management^: Hahn: Cath Placed During This Visit: yes, but has since been removed by the nurse Reason for Continuing Indwelling Catheter: Accurate Measurement of Urinary Output in Critically Ill Patients Urinary Catheter Date of Insertion: 01/02/20 Urinary Catheter Time of Insertion: 09:25 Date Urinary Catheter Removed: 01/03/20 Time Urinary Catheter Discontinued: 15:00 Data : 01/08/20 05:38 01/08/20 05:38 A&P Additional A&P Information 1. ESRD - dialyzed 01/04; low creatinine suggests some residual kidney function and creatinine has increased from 1.5 to 1.6 to 1.7 - will hold off dialysis with plan to continue to monitor renal function, are we looking at renal recovery?; will eval in the am and see if she needs dialysis if she is still in house - am labs - avoid the usual nephrotoxins 2. S/p colostomy takedown 01/01 - mgmt per Dr Luna - advance diet as tolerated - analgesics 3. Hemodynamics look stable 4. Anemia; mild, serial H/H 5. Lytes look good; well balanced 6. Possible DC today; will touch base with Dr Bhagat to monitor for residual renal function as outpatient Exam and interview performed using telemed with the aid of the bedside RN Attestations Medical Necessity Statement*: eval for ESRD mgmt Coding Level of Care Code Acute Engrosser for Chg Alcira
--- NOTE | 2020-01-08 13:35 | PM.PN ---
Subjective Subjective: Interval history: Patient still reports nausea today but better. Pain is better. She does not look as uncomfortable as she did yesterday. She reports that she is out of nausea medicine at home. Dr. Luna is planning on discharging her today. Vitals/I&O/Wt Last Vital Signs Temp 98.3 F 01/08/20 12:00 Pulse 59 L 01/08/20 12:00 Resp 16 01/08/20 12:00 BP 108/62 01/08/20 12:00 Pulse Ox 92 01/08/20 12:00 01/07/20 01/08/20 01/08/20 22:59 06:59 14:59 Intake Total 470 / 760 780 / 1540 360 / 360 Balance 470 / 760 780 / 1540 360 / 360 Physical Exam Narrative: EXAM NARRATIVE: Seen sitting up in the chair. She has had a sponge bath and her hair washed. Her lungs are clear. Regular rhythm. Abdomen remains tender but soft. She did not want me to look at her wounds as she did not want to pull the diaper away from the skin. She is more alert, speech clear and moves all extremities. Urinary Catheter Management^: Hahn: Cath Placed During This Visit: yes, but has since been removed by the nurse Reason for Continuing Indwelling Catheter: Accurate Measurement of Urinary Output in Critically Ill Patients Urinary Catheter Date of Insertion: 01/02/20 Urinary Catheter Time of Insertion: 09:25 Date Urinary Catheter Removed: 01/03/20 Time Urinary Catheter Discontinued: 15:00 Data : 01/08/20 05:38 01/08/20 05:38 A&P Assessment and plan (1) S/P colostomy takedown: Status: Acute (2) Hypotension: Status: Resolved (3) Acute blood loss anemia: Status: Resolved (4) End-stage renal disease needing dialysis: Status: Acute (5) Hypothyroidism: Status: Chronic (6) Anxiety: Status: Resolved Additional A&P Information Okay to discharge today from medical standpoint I wrote a prescription in the discharge orders for Zofran for home use Continue other home medications as ordered Patient was given an opportunity to ask questions Attestations Medical Necessity Statement*: For discharge today Coding Level of Care Code Acute Learning Support Specialist for g Fwd Diagnoses S/P colostomy takedown Z98.890 Hypotension I95.9 Acute blood loss anemia D62 End-stage renal disease needing dialysis N18.6; Z99.2 Hypothyroidism E03.9 Anxiety F41.9
== END 2020-01-08 15:30 | disposition home health service (06) | DRG 335 ==
LOC: MEDSURG 14:08 → ICU 17:23 → MEDSURG 01-04 16:40
PROVIDERS: Anesthesiology; Internal Medicine Nephrology; Surgery; Admitting Provider Surgery; PCP Family Medicine; Visit Provider Surgery
PROC: 0DSN4ZZ Reposition Sigmoid Colon, Percutaneous Endoscopic Approach (ICD-10-PCS; CPT 44620; principal; 2020-01-02 08:25)
PROC: 0DJD8ZZ Inspection of Lower Intestinal Tract, Via Natural or Artificial Opening Endoscopic (ICD-10-PCS; CPT 45378; 2020-01-02 08:25)
DX: Z43.3 Encounter for attention to colostomy (principal); N18.6 End stage renal disease; I12.0 Hypertensive chronic kidney disease with stage 5 chronic kidney disease or end stage renal disease; E87.2 Acidosis; D62 Acute posthemorrhagic anemia; K66.0 Peritoneal adhesions (postprocedural) (postinfection); Z99.2 Dependence on renal dialysis; Z90.49 Acquired absence of other specified parts of digestive tract; F32.9 Major depressive disorder, single episode, unspecified; I73.9 Peripheral vascular disease, unspecified; F41.9 Anxiety disorder, unspecified; E03.9 Hypothyroidism, unspecified; M19.90 Unspecified osteoarthritis, unspecified site; M81.0 Age-related osteoporosis without current pathological fracture; Z87.891 Personal history of nicotine dependence; I95.9 Hypotension, unspecified; D63.1 Anemia in chronic kidney disease; D69.6 Thrombocytopenia, unspecified; Z79.891 Long term (current) use of opiate analgesic
CPT/HCPCS: 12345; 36415; 36416; 36430; 36591; 45378; 71045; 74019; 80048; 80053; 82310; 82533; 82607; 82728; 82746; 82962; 83540; 83550; 83735; 83970; 84100; 84443; 85014; 85018; 85025; 85610; 86706; 86803; 86850; 86900; 86920; 87040; 87340; 88309; 90935; 93971; 94640; 96365; 96372; 96375; 97110; 97163; 97530; C9290; G0378; J0131; J0744; J1100; J1644; J2001; J2370; J2405; J2704; J2765; J3010; J3490; J3535; J7030; J7040; P9016; P9040; P9041; Q0162; Q3014; S0030

== ENCOUNTER 2020-01-21 13:49 | Emergency (ER) | payer MEDICARE, OTHER, SELFPAY ==
[2020-01-21 13:57] VITALS: BP 113/61; PULSE 63; RESP 16; TEMP 36.7; O2SAT 97; BMI 16.7
--- NOTE | 2020-01-21 14:36 | PC.NURSE ---
Pt refusing blood draw and IV at this time.
--- NOTE | 2020-01-21 15:25 | ED_ITS ---
HPI - Skin/Abscess/Foreign Bdy General: Chief complaint: Skin/Abscess/Foreign Body Stated complaint: post op problems Time Seen by Provider: 01/21/20 14:06 History of Present Illness: HPI narrative: This patient is an 84-year-old female presenting with poor wound healing after surgery 3 weeks ago. In the past she had a perforated intestine and required a colostomy. It was approximately a year ago according to her family member. She said the wounds from that surgery healed okay except the right around the ostomy site where the skin never seem to heal. 3 weeks ago she had a colostomy takedown and is here today because home health felt like the wounds were looking bad. She had the reji removed about a week ago. At that time part of the left side of the incision was opened slightly but Dr. Luna told her that it would heal from the inside out. Since then she has had more opening of the wound on the right side as well as superiorly. She has had some increased pain with it but no vomiting. She has had some diarrhea. She is quite weak and frail appearing in general. She is a dialysis patient. She does not really want to be here and is irritated that home health told her she had to come in. Associated symptoms: Deny chills, fever(s), nausea or vomiting Review of Systems General: Reports: 10 or more systems reviewed and unremarkable except in HPI and below Const: Reports: fatigue and malaise; Denies: fever(s) or chills Eyes: Denies: change in vision ENMT: Denies: odynophagia Card: Denies: chest pain or swelling of feet/ankles Resp: Denies: dyspnea, productive cough or non-productive cough GI: Reports: diarrhea; Denies: nausea or vomiting : Denies: flank pain or difficulty voiding Musc: Denies: neck pain or back pain Skin/Breast: Denies: rash Neuro: Denies: headache(s), numbness in extremities or weakness in extremities Chad/Lymph: Denies: easy bruising or easy bleeding PFSH ED PFSH: Medical History Anxiety CKD (chronic kidney disease) Hypothyroidism Osteoarthritis Osteoporosis Venous insufficiency Surgical History AV fistula H/O varicose vein stripping History of cataract extraction Insert prosthetic lens History of cholecystectomy History of ear surgery Reconstruction History of esophagogastroduodenoscopy (EGD) History of hernia repair History of open sigmoidectomy (06/21/19) with end colostomy S/P colostomy takedown (01/02/20) S/P dialysis catheter insertion Status post colonoscopy (12/20/19) diverticulosis Family History Sister Peripheral arterial disease Diabetes Mother CAD (coronary artery disease) Father CAD (coronary artery disease) Denies family history of Anesthesia complication Bleeding disorder Social History Smoking and tobacco status: never smoked Alcohol intake: never Lives independently: Yes Household members: spouse Marital status: History of recent travel: No Physical Exam Const: COMMON NORMALS: no acute distress, patient oriented x3, no limitations and alert GENERAL APPEARANCE: cooperative and comfortable NUTRITIONAL APPEARANCE: underweight HENMT: HEAD & SCALP: normal to inspection FACE & SINUS: normal facial exam Eye: GENERAL EYE: appearance normal, both eyes and all related structures Neck/C-Spine: COMMON NORMALS: supple, no meningeal signs and no JVD Chest: COMMONS NORMALS: normal inspection of the chest Resp: COMMON NORMALS: normal respiratory effort, No use of accessory muscles and clear to auscultation bilaterally AUSCULTATION: clear to auscultation bilaterally Cardio: COMMON NORMALS: no JVD, regular rate, regular rhythm and No murmurs present (Cardio) RATE: regular rate RHYTHM: regular rhythm GI: INSPECTION: Yes other (There is a roughly T-shaped incision across the lower abdomen. There is an area on the left which is open with some tannish drainage. No surrounding erythema. On the superior portion there is an open area with visible suture material underneath. This area has some surrounding erythema and drainage. To the right aspect of the wound there is an area which is also open but without significant drainage or erythema.) AUSCULTATION: Yes normoactive bowel sounds PALPATION: Yes Tenderness to palpation present (GI) (Mild, diffuse) Back/Pelvis: COMMON NORMALS: thoracic and lumbar spine normal to inspection Extremity: COMMON NORMALS: normal to inspection Neuro: COMMON NORMALS: patient oriented x3, moves all extremities, no focal motor deficits and no sensory deficits noted SENSORIUM/ORIENTATION: Yes alert MENINGEAL SIGNS: Yes no meningeal signs Psych: COMMON NORMALS: mental status grossly normal, cooperative and normal affect Skin: COMMON NORMALS: no rashes or lesions noted and turgor normal GENERAL SKIN EXAM: no rashes or lesions noted and turgor normal Course ED course: I spoke with Dr. Luna. He said that as long as the fascia is intact that she can go home with wet-to-dry dressings and he will see her in the clinic this week coming up. The fascia does look intact and I do not see any sign of active infection. The patient was comfortable with that plan. Her daughter understood as well. Vital Signs: Vital signs: Vital Signs Temperature 98.0 F 01/21/20 13:57 Pulse Rate 77 01/21/20 16:43 Respiratory Rate 18 01/21/20 16:43 Blood Pressure 128/56 01/21/20 16:43 Pulse Oximetry 92 01/21/20 16:43 Discharge Plan Discharge Patient Disposition: Home, Self-Care Clinical Impression: Dehiscence of closure of skin Qualifiers: Encounter type: initial encounter Qualified Code(s): T81.31XA - Disruption of external operation (surgical) wound, not elsewhere classified, initial encounter Condition: Stable Prescriptions: No Action gabapentin 100 mg capsule 100 mg PO BID RF: 0 tramadol 50 mg tablet 50 mg PO PRN RF: 0 levothyroxine [Synthroid] 50 mcg tablet 75 mcg PO DAILY RF: 0 albuterol sulfate [Ventolin HFA] 90 mcg/actuation HFA aerosol inhaler 2 puff INHALATION Q4H PRN (Reason: Shortness Of Breath) RF: 0 midodrine 5 mg tablet 10 mg PO TID RF: 0 aspirin 325 mg Tablet 325 mg PO DAILY RF: 0 docusate sodium [Colace] 100 mg capsule 100 mg PO BID Qty: 30 RF: 0 Lactobacillus acidophilus Capsule 460 mg PO BID Qty: 60 RF: 0 ondansetron HCl [Zofran] 4 mg tablet 4 mg PO Q6H PRN (Reason: nausea and vomiting) Qty: 30 RF: 0 Lasix 40 mg Tablet 40 mg PO DAILY RF: 0 lovastatin 40 mg Tablet 40 mg PO DAILY RF: 0 allopurinol 100 mg Tablet 100 mg PO DAILY RF: 0 Tylenol Extra Strength 500 mg Tablet 500 mg PO PRN RF: 0 alprazolam 0.25 mg tablet See Rx Instructions .ROUTE .COMPLEX RF: 0 venlafaxine 37.5 mg tablet 37.5 mg PO DAILY RF: 0 loratadine 10 mg Tablet 10 mg PO DAILY RF: 0 RenaPlex-D 800 mcg-12.5 mg -2,000 unit tablet 1 tab PO DAILY RF: 0 Fish Oil 1 tab PO DAILY RF: 0 Imodium A-D See Rx Instructions .ROUTE .COMPLEX RF: 0 hydrocodone-acetaminophen 5-325 mg tablet 1 tab PO Q6H PRN (Reason: Pain) RF: 0 Discharge Orders: Discharge Order (Routine); Ordered 01/21/20 Ordered By: Kindra Wiggins Referrals: Jonah Luna MD [Physician] - (Dr. Luna's office will call you on Thursday to arrange follow up) Iban Victoria MD [Primary Care Provider] - Discharge Diet: Advance as tolerated Discharge Activity: Resume usual activity Patient Instructions: Chronic Wound Care (ED) Activity Restrictions/Additional Instructions: Use wet to dry dressings on the wounds as demonstrated in the ED today. Follow up with Dr. Luna - his office will call you on Thursday. Return if the wounds open further, if fever, worsening abdominal pain or any other new or concerning symptoms. 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
[2020-01-21 16:43] VITALS: BP 128/56; PULSE 77; RESP 18; O2SAT 92
--- NOTE | 2020-01-23 10:28 | DCPLANNER ---
software test manager had message to schedule a follow up appointment for patient with [facility]. software test manager called the clinic, spoke with Bonnie. Patient has a follow up appointment scheduled for Friday, January 31, 2020 at 2:30. Patient is aware of appointment.
--- NOTE | 2020-02-03 15:05 | DCPLANNER ---
Patient did attend appointment scheduled for 01.31.20 with [facility].
== END 2020-01-21 16:43 | disposition home or self-care (01) ==
PROVIDERS: Emergency Provider Emergency Medicine; PCP Family Medicine
DX: T81.31XA Disruption of external operation (surgical) wound, not elsewhere classified, initial encounter (principal); Z79.82 Long term (current) use of aspirin
CPT/HCPCS: 12345; 99281; 99282

== ENCOUNTER 2020-01-23 14:59 | Outpatient (CLI) | payer MEDICARE, OTHER, SELFPAY | END 2020-01-23 15:00 | disposition home or self-care (01) | LOC: WOUND 15:00 | PROVIDERS: PCP Family Medicine; Visit Provider Nurse Practitioner Family | DX: T81.31XA Disruption of external operation (surgical) wound, not elsewhere classified, initial encounter (principal); Y83.8 Other surgical procedures as the cause of abnormal reaction of the patient, or of later complication, without mention of misadventure at the time of the procedure | CPT/HCPCS: 11042; 87070; 87176; 87205 ==

== ENCOUNTER 2020-01-23 16:42 | Emergency (ER) | payer MEDICARE, OTHER, SELFPAY ==
[2020-01-23 16:45] VITALS: BP 131/61; PULSE 70; RESP 16; TEMP 37; O2SAT 100; BMI 16.7
--- NOTE | 2020-01-23 17:29 | XRR_ITS ---
PROCEDURE INFORMATION: Exam: XR Left Wrist Exam date and time: 01/23/2020 5:55 PM Age: 84 years old Clinical indication: Pain; Wrist; Left; Additional info: Pain, swelling TECHNIQUE: Imaging protocol: XR Left wrist. Views: 3 or more views. COMPARISON: No relevant prior studies available. FINDINGS: Bones/joints: Normal. Soft tissues: Normal. XR/XR wrist LT min 3V* [id number] IMPRESSION: No acute findings.
[2020-01-23] MEDS: sulfamethoxazole-trimeth DS 160-800 mg Tablet 1 TAB PO (18:52)
[2020-01-23 18:58] VITALS: BP 129/57; PULSE 84; RESP 18; O2SAT 96
--- NOTE | 2020-01-23 20:47 | W.ED.EXTPRO ---
HPI - Extremity Problem General: Chief complaint: Extremity Injury, Upper Stated complaint: abd pain Time Seen by Provider: 01/23/20 16:45 History of Present Illness: HPI Narrative: This patient is an 84-year-old female presenting today with left wrist pain. I saw her 2 days ago for some dehiscence of the wound on her abdomen. She is not here for that complaint today. She denies any injury to the wrist. She is a dialysis patient has a dialysis graft in the left upper arm. She says it has not been used in the past several weeks because it was clotted. It does not appear hot or infected. She denies fever. She is extremely tired but says is because she is had dialysis and another doctor's appointment today. She sees Dr. Luna tomorrow for the abdominal wounds. Complaint: extremity pain and extremity swelling Onset (ago): day(s) (1) Pain Consistency: constant Location: left Associated symptoms: Deny fever(s) Review of Systems Const: Reports: fatigue; Denies: fever(s) or chills Musc: Reports: extremity pain and extremity swelling PFSH ED PFSH: Medical History (Updated 01/23/20 @ 18:44 by Kindra Wiggins MD) Anxiety CKD (chronic kidney disease) Hypothyroidism Osteoarthritis Osteoporosis Venous insufficiency Surgical History AV fistula H/O varicose vein stripping History of cataract extraction Insert prosthetic lens History of cholecystectomy History of ear surgery Reconstruction History of esophagogastroduodenoscopy (EGD) History of hernia repair History of open sigmoidectomy (06/21/19) with end colostomy S/P colostomy takedown (01/02/20) S/P dialysis catheter insertion Status post colonoscopy (12/20/19) diverticulosis Family History Sister Peripheral arterial disease Diabetes Mother CAD (coronary artery disease) Father CAD (coronary artery disease) Denies family history of Anesthesia complication Bleeding disorder Social History Smoking and tobacco status: never smoked Alcohol intake: never Lives independently: Yes Household members: spouse Marital status: History of recent travel: No Physical Exam Const: COMMON NORMALS: no acute distress, patient oriented x3, no limitations and alert GENERAL APPEARANCE: cooperative and comfortable HENMT: HEAD & SCALP: normal to inspection FACE & SINUS: normal facial exam Eye: GENERAL EYE: appearance normal, both eyes and all related structures Neck/C-Spine: COMMON NORMALS: supple, no meningeal signs and no JVD Chest: COMMONS NORMALS: normal inspection of the chest Resp: COMMON NORMALS: normal respiratory effort, No use of accessory muscles and clear to auscultation bilaterally AUSCULTATION: clear to auscultation bilaterally Cardio: COMMON NORMALS: no JVD, regular rate, regular rhythm and No murmurs present (Cardio) RATE: regular rate RHYTHM: regular rhythm Back/Pelvis: COMMON NORMALS: thoracic and lumbar spine normal to inspection Extremity: GENERAL: Yes normal exam except as noted LEFT UPPER EXTREMITY: Yes wrist (Warm, red, swollen over the medial distal radius. No clear line of demarcation. Tender to palpation diffusely.) Neuro: COMMON NORMALS: patient oriented x3, moves all extremities, no focal motor deficits and no sensory deficits noted SENSORIUM/ORIENTATION: Yes alert MENINGEAL SIGNS: Yes no meningeal signs Psych: COMMON NORMALS: mental status grossly normal, cooperative and normal affect Skin: COMMON NORMALS: no rashes or lesions noted and turgor normal GENERAL SKIN EXAM: no rashes or lesions noted and turgor normal Course ED course: This patient has some warmth and swelling of her left wrist. She has a dialysis shunt in that arm but is not currently functioning. She denies fever. Systemically she looks okay. X-rays did not show any fracture and there is no history of trauma. She has not had an IV start or anything like that in that arm. The swelling and tenderness did not seem to actually above the wrist joint but seems more in the soft tissues proximal to the joint. Ryann put her on Bactrim at a renal dose once a day and have her follow-up to make sure this is improving. Vital Signs: Vital signs: Vital Signs Temperature 98.6 F 01/23/20 16:45 Pulse Rate 84 01/23/20 18:58 Respiratory Rate 18 01/23/20 18:58 Blood Pressure 129/57 01/23/20 18:58 Pulse Oximetry 96 01/23/20 18:58 Discharge Plan Discharge Patient Disposition: Home, Self-Care Clinical Impression: Cellulitis Qualifiers: Site of cellulitis: extremity Site of cellulitis of extremity: upper extremity Laterality: left Qualified Code(s): L03.114 - Cellulitis of left upper limb Condition: Stable Prescriptions: New Bactrim DS 800-160 mg tablet 1 tab PO DAILY Qty: 7 RF: 0 No Action gabapentin 100 mg capsule 100 mg PO BID RF: 0 tramadol 50 mg tablet 50 mg PO PRN RF: 0 levothyroxine [Synthroid] 50 mcg tablet 75 mcg PO DAILY RF: 0 albuterol sulfate [Ventolin HFA] 90 mcg/actuation HFA aerosol inhaler 2 puff INHALATION Q4H PRN (Reason: Shortness Of Breath) RF: 0 midodrine 5 mg tablet 10 mg PO TID RF: 0 aspirin 325 mg Tablet 325 mg PO DAILY RF: 0 docusate sodium [Colace] 100 mg capsule 100 mg PO BID Qty: 30 RF: 0 Lactobacillus acidophilus Capsule 460 mg PO BID Qty: 60 RF: 0 ondansetron HCl [Zofran] 4 mg tablet 4 mg PO Q6H PRN (Reason: nausea and vomiting) Qty: 30 RF: 0 furosemide [Lasix] 40 mg Tablet 40 mg PO DAILY RF: 0 lovastatin 40 mg Tablet 40 mg PO DAILY RF: 0 allopurinol 100 mg Tablet 100 mg PO DAILY RF: 0 acetaminophen [Tylenol Extra Strength] 500 mg Tablet 500 mg PO PRN RF: 0 alprazolam 0.25 mg tablet See Rx Instructions .ROUTE .COMPLEX RF: 0 venlafaxine 37.5 mg tablet 37.5 mg PO DAILY RF: 0 loratadine 10 mg Tablet 10 mg PO DAILY RF: 0 RenaPlex-D 800 mcg-12.5 mg -2,000 unit tablet 1 tab PO DAILY RF: 0 Fish Oil 1 tab PO DAILY RF: 0 Imodium A-D See Rx Instructions .ROUTE .COMPLEX RF: 0 hydrocodone-acetaminophen 5-325 mg tablet 1 tab PO Q6H PRN (Reason: Pain) RF: 0 Discharge Orders: Discharge Order (Routine); Ordered 01/23/20 Ordered By: Kindra Wiggins Referrals: Iban Victoria MD [Primary Care Provider] - Discharge Diet: Advance as tolerated Discharge Activity: Resume usual activity Patient Instructions: Cellulitis (ED) Activity Restrictions/Additional Instructions: Take 1 Bactrim tablet daily. On dialysis days take it after your dialysis. Have your doctor or wound care check the arm in a few days to make sure it is improving. Return to the emergency department if worse in any way including fever, increased pain. Discharge Date/Time: 01/23/20 19:00 Coding Level of Care Code ED Corporate Legal Assistant for Balaji Eli
== END 2020-01-23 19:00 | disposition home or self-care (01) ==
PROVIDERS: Emergency Provider Emergency Medicine; PCP Family Medicine
DX: L03.114 Cellulitis of left upper limb (principal); Z79.82 Long term (current) use of aspirin
CPT/HCPCS: 12345; 73110; 99281; 99283

== ENCOUNTER → 2020-04-11 16:15 | Outpatient (BNVA) | payer MEDICARE, OTHER, SELFPAY | PROVIDERS: PCP Family Medicine; Referring Provider Family Medicine; Visit Provider Specialist | DX: M79.641 Pain in right hand (principal); M79.642 Pain in left hand; M19.041 Primary osteoarthritis, right hand; M19.042 Primary osteoarthritis, left hand | CPT/HCPCS: 73130 ==

== ENCOUNTER 2020-06-11 09:48 | Emergency (ER) | payer MEDICARE, OTHER, SELFPAY ==
[2020-06-11 10:05] VITALS: BP 102/64; PULSE 64; RESP 16; TEMP 36.5; O2SAT 97; BMI 16.0
--- NOTE | 2020-06-11 11:26 | XR_ITS ---
WS: [id number] Exam: XR hand RT min 3V* [id number] Date/Time of Exam: 06/11/2020 11:26 AM Reason For Exam: hand pain/swelling Comparison 04/11/2020. Advanced degenerative changes in the IP joints and to a lesser degree the MP joints. Joint replacemen t noted involving the PIP joint of the third finger with associated deformity. No acute fracture. No soft tissue foreign bodies are seen. XR/XR hand RT min 3V* [id number] IMPRESSION: 1. Advanced osteoarthritis in the IP joints and to a lesser extent the MP joint s. 2. Joint replacement of the PIP joint of the third finger which is beginning to degenerate. 3. No fractures.
--- NOTE | 2020-06-11 11:28 | ECG_ITS ---
[facility] Test Date: 2020-06-11 Pat Name: Rama Escobar Department: Room: Gender: Female Pr Intern: : 1935 Requested By: Hadley Almaraz Order Number: [id number] [place] MD: John Angeles M.D. Measurements Intervals [place] Rate: 65 P: MT: -1 QRS: 27 QRSD: 87 T: 42 QT: 413 QTc: 431 Interpretive Statements Multifocal atrial rhythm SEPTAL MYOCARDIAL INFARCTION , OF INDETERMINATE AGE [40+ ms Q WAVE IN V1/V2] Compared to ECG 06/30/2017 13:02:25 Myocardial infarct finding now present Sinus rhythm no longer present Electronically Signed On 06-11-2020 18:26:19 PERSONAL BANKING OFFICER by John Angeles M.D. [email or web address]
--- NOTE | 2020-06-11 11:52 | W.ED.GENADLT ---
HPI - General Adult General: Chief complaint: General Medical Stated complaint: Swelling in Hand/Weakness Time Seen by Provider: 06/11/20 11:06 History of Present Illness: HPI narrative: 84-year-old female presents to the emergency room complaining of having passed out a day and a half ago. On the evening of the she was on the way to go to the bathroom and passed out and laid on the floor overnight. She has some swelling in her right hand has not been reddened or inflamed. She denies any chest pain or fever she had some diarrhea after she passed out. Her daughter found her on the floor she was somewhat disoriented her daughter says lately she has been having more episodes where she will be quite forgetful or even will make sense for brief periods of time and then seems to recover spontaneously. She denies any difficulty breathing at any point. She denies dysuria urgency or frequency she is does have end-stage renal disease has a tunneled dialysis catheter in the right subclavian area and is scheduled for dialysis this morning. Onset (ago): day(s) Location: left, right and upper extremity Radiation: non-radiation Severity: mild Quality: aching Pain Consistency: constant Relieving factors: none Exacerbating factors: none Associated symptoms: Reports confusion; Deny chest pain, cough, diaphoresis, decreased appetite, dyspnea, fevers/chills, headache(s), malaise, nausea, rash, palpitations, seizures, short of breath, syncope, vomiting or weakness Treatments prior to arrival: none Review of Systems Const: Denies: malaise or diaphoresis ENMT: Denies: throat pain, ear or mastoid pain, nasal discharge or nasal congestion Card: Denies: chest pain, palpitations or syncope Resp: Denies: dyspnea GI: Denies: nausea or vomiting : Denies: flank pain, difficulty voiding, dysuria, urinary frequency or urinary urgency Skin/Breast: Denies: rash Neuro: Reports: confusion; Denies: headache(s) [facility] ED PFS: Medical History (Updated 06/11/20 @ 14:13 by Hadley Moseley DO) Anxiety CKD (chronic kidney disease) ESRD (end stage renal disease) Hypothyroidism Osteoarthritis Osteoporosis Venous insufficiency Surgical History AV fistula H/O varicose vein stripping History of cataract extraction Insert prosthetic lens History of cholecystectomy History of ear surgery Reconstruction History of esophagogastroduodenoscopy (EGD) History of hernia repair History of open sigmoidectomy (06/21/19) with end colostomy S/P colostomy takedown (01/02/20) S/P dialysis catheter insertion Status post colonoscopy (12/20/19) diverticulosis Family History Sister Peripheral arterial disease Diabetes Mother CAD (coronary artery disease) Father CAD (coronary artery disease) Denies family history of Anesthesia complication Bleeding disorder Social History Smoking and tobacco status: never smoked Alcohol intake: never Lives independently: Yes Household members: spouse Marital status: History of recent travel: No Physical Exam Const: COMMON NORMALS: no acute distress GENERAL APPEARANCE: cooperative and comfortable ORIENTATION/CONSCIOUSNESS: Yes awake, Yes oriented to person, Yes oriented to place and Yes oriented to time HENMT: COMMON NORMALS: normocephalic, atraumatic and hearing grossly normal bilaterally HEAD & SCALP: normocephalic and atraumatic Neck/C-Spine: COMMON NORMALS: no JVD Resp: COMMON NORMALS: normal respiratory effort, No retractions, No use of accessory muscles and clear to auscultation bilaterally AUSCULTATION: clear to auscultation bilaterally Cardio: COMMON NORMALS: no JVD, regular rate, regular rhythm and No murmurs present (Cardio) RATE: regular rate RHYTHM: regular rhythm GI: COMMON NORMALS: Soft to palpation and No hepatosplenomegaly present AUSCULTATION: Yes normoactive bowel sounds PALPATION: Yes Soft to palpation, No Tenderness to palpation present (GI), No Guarding due to palpation present (GI) and Yes No hepatosplenomegaly present Extremity: COMMON NORMALS: normal to inspection, capillary refill normal, no calf tenderness and no pedal edema NARRATIVE EXTREMITY EXAM: Moderate swelling of the second and third MP joints on the right hand. No erythema no induration Neuro: SENSORIUM/ORIENTATION: Yes oriented to person, Yes oriented to place and Yes oriented to time Skin: COMMON NORMALS: no rashes or lesions noted GENERAL SKIN EXAM: no rashes or lesions noted Course Vital Signs: Vital signs: Vital Signs Temperature 97.7 F 06/11/20 10:05 Pulse Rate 64 06/11/20 14:33 Respiratory Rate 12 06/11/20 14:33 Blood Pressure 145/66 06/11/20 14:33 Pulse Oximetry 91 06/11/20 14:33 MDM - General Adult MDM Narrative: Medical decision making narrative: Discharge home. Reviewed findings with her. Can follow-up with Ortho in the destruction of the joint at the third finger continues was present previously nothing that appears acute. Continue her other medications we added oral antibiotics for bladder infection return if has further problems. Lab Data: Labs: Lab Results 06/11/20 06/11/20 06/11/20 Range/Units 12:15 12:15 12:15 WBC 11.7 H (4.0-10.0) 10^3/ uL RBC 3.40 L (4.1-5.3) 10^6/u L Hgb 10.2 L (11.5-15.3) g/dL Hct 33.9 L (37.0-47.0) % MCV 99.7 H (81-99) fL MCH 30.0 (28.0-34.0) pg MCHC 30.1 (30.0-36.0) g/dL RDW 15.8 H (12.1-15.1) % Plt Count 290 (130-400) 10^3/c mm MPV 9.8 (7.4-10.4) fL Neut % (Auto) 82.4 % Lymph % (Auto) 9.8 % [place] % (Auto) 6.7 % Eos % (Auto) 0.2 % Baso % (Auto) 0.5 % Neut # (Auto) 9.65 H (1.8-7.7) 10^3/u L Lymph # (Auto) 1.2 (0.8-4.8) 10^3/u L [place] # (Auto) 0.8 (0.2-0.9) 10^3/u L Eos # (Auto) 0.0 (0.0-0.8) 10^3/u L Baso # (Auto) 0.1 (0.0-0.1) 10^3/u L Nucleated RBC % (a uto) 0 % Nucleated RBCs # 0.0 /100WBC Sodium 138 (136-145) mmol/L Potassium 4.2 (3.5-5.1) mmol/L Chloride 104 (98-107) mmol/L Carbon Dioxide 23 (22-29) mmol/L Anion Gap 15.2 (5-19) BUN 36 H (8-23) mg/dL Creatinine 2.6 H (0.5-0.9) mg/dL GFR Calculation Not Reportable Glucose 90 (65-115) mg/dL Calculated Osmolal ity 294 (285-295) mOsm/k g Lactic Acid 1.0 (0.5-2.2) mmol/L Calcium 8.9 (8.5-10.5) mg/dL Total Bilirubin 0.3 (0.15-1.2) mg/dL AST 28 (0-32) U/L ALT 19 (0-33) U/L Alkaline Phosphata se 71 (35-105) IU/L Creatine Kinase 76 (26-192) U/L Total Protein 6.4 L (6.6-8.7) g/dL Albumin 3.2 L (3.5-5.2) g/dL Globulin 3.2 (1.3-4.6) g/dL Lipase 17 (13-60) U/L Urine Color (Yellow) Urine Appearance (CLEAR) Urine pH (5-7) Ur Specific Gravit y (1.005-1.030) Urine Protein (Negative) Urine Glucose (UA) (Normal) Urine Ketones (Negative) Urine Blood (Negative) Urine Nitrate (Negative) Urine Bilirubin (Negative) Urine Urobilinogen (Negative) mg/dL Ur Leukocyte Deloris ase (Negative) Urine RBC (0-2) /hpf Urine WBC (0-5) /hpf Ur Squamous Epith Cells (0-5) /hpf Amorphous Sediment Urine Bacteria (NONE) /hpf 16/20 Range/Units 12:52 WBC (4.0-10.0) 10^3/ uL RBC (4.1-5.3) 10^6/u L Hgb (11.5-15.3) g/dL Hct (37.0-47.0) % MCV (81-99) fL MCH (28.0-34.0) pg MCHC (30.0-36.0) g/dL RDW (12.1-15.1) % Plt Count (130-400) 10^3/c mm MPV (7.4-10.4) fL Neut % (Auto) % Lymph % (Auto) % [place] % (Auto) % Eos % (Auto) % Baso % (Auto) % Neut # (Auto) (1.8-7.7) 10^3/u L Lymph # (Auto) (0.8-4.8) 10^3/u L [place] # (Auto) (0.2-0.9) 10^3/u L Eos # (Auto) (0.0-0.8) 10^3/u L Baso # (Auto) (0.0-0.1) 10^3/u L Nucleated RBC % (a uto) % Nucleated RBCs # /100WBC Sodium (136-145) mmol/L Potassium (3.5-5.1) mmol/L Chloride (98-107) mmol/L Carbon Dioxide (22-29) mmol/L Anion Gap (5-19) BUN (8-23) mg/dL Creatinine (0.5-0.9) mg/dL GFR Calculation Glucose (65-115) mg/dL Calculated Osmolal ity (285-295) mOsm/k g Lactic Acid (0.5-2.2) mmol/L Calcium (8.5-10.5) mg/dL Total Bilirubin (0.15-1.2) mg/dL AST (0-32) U/L ALT (0-33) U/L Alkaline Phosphata se (35-105) IU/L Creatine Kinase (26-192) U/L Total Protein (6.6-8.7) g/dL Albumin (3.5-5.2) g/dL Globulin (1.3-4.6) g/dL Lipase (13-60) U/L Urine Color Yellow (Yellow) Urine Appearance Cloudy (CLEAR) Urine pH 6 (5-7) Ur Specific Gravit y 1.015 (1.005-1.030) Urine Protein 2+ H (Negative) Urine Glucose (UA) Norm (Normal) Urine Ketones Negative (Negative) Urine Blood 3+ H (Negative) Urine Nitrate Positive H (Negative) Urine Bilirubin Neg (Negative) Urine Urobilinogen Norm (Negative) mg/dL Ur Leukocyte Deloris ase 2+ H (Negative) Urine RBC 10-15 H (0-2) /hpf Urine WBC >100 H (0-5) /hpf Ur Squamous Epith Cells 5-10 H (0-5) /hpf Amorphous Sediment Not Reportable Urine Bacteria 4+ H (NONE) /hpf Discharge Plan Discharge Patient Disposition: Home Clinical Impression: Cystitis, Osteoarthritis of fingers of hands, bilateral, ESRD (end stage renal disease), Fall Condition: Stable Prescriptions: New levofloxacin 500 mg tablet 500 mg PO DAILY 5 Days RF: 0 No Action gabapentin 100 mg capsule 100 mg PO BID RF: 0 tramadol 50 mg tablet 50 mg PO Q6H PRN (Reason: Pain) RF: 0 levothyroxine [Synthroid] 50 mcg tablet 75 mcg PO DAILY RF: 0 albuterol sulfate [Ventolin HFA] 90 mcg/actuation HFA aerosol inhaler 2 puff INHALATION Q4H PRN (Reason: Shortness Of Breath) RF: 0 midodrine 5 mg tablet 10 mg PO TID RF: 0 aspirin 325 mg Tablet 325 mg PO DAILY RF: 0 ondansetron HCl [Zofran] 4 mg tablet 4 mg PO Q6H PRN (Reason: nausea and vomiting) Qty: 30 RF: 0 lovastatin 40 mg Tablet 40 mg PO DAILY RF: 0 acetaminophen [Tylenol Extra Strength] 500 mg Tablet 500 mg PO Q6H PRN (Reason: Pain) RF: 0 alprazolam 0.25 mg tablet See Rx Instructions .ROUTE .COMPLEX RF: 0 venlafaxine 37.5 mg tablet 37.5 mg PO DAILY RF: 0 loratadine 10 mg Tablet 10 mg PO DAILY RF: 0 RenaPlex-D 800 mcg-12.5 mg -2,000 unit tablet 1 tab PO DAILY RF: 0 Fish Oil 1 tab PO DAILY RF: 0 Imodium A-D See Rx Instructions .ROUTE .COMPLEX PRN (Reason: Diarrhea) RF: 0 hydrocodone-acetaminophen 5-325 mg tablet 1 tab PO Q6H PRN (Reason: Pain) RF: 0 famotidine 40 mg Tablet 40 mg PO DAILY RF: 0 fluticasone propionate 50 mcg/actuation [place],Suspension 1 spray INTRANASAL DAILY PRN (Reason: Nasal Congestion) RF: 0 Discharge Orders: Discharge Order (Routine); Ordered 06/11/20 Ordered By: Hadley Moseley Referrals: Iban Victoria MD [Primary Care Provider] - Activity Restrictions/Additional Instructions: Call to reschedule your dialysis. Follow-up with Dr. Victoria later on this week. Return to the emergency room if you have further problems. Coding Level of Care Code ED Tube Sizer And Cutter Operator for Chg Fwd Exam Comprehensive
[2020-06-11 11:57] VITALS: BP 121/66; PULSE 64; RESP 14; O2SAT 100
[2020-06-11 12:24] LABS: Basophils # 0.1 10^3/uL (0.0-0.1); Basophils % 0.5 %; Eosinophils % 0.2 %; Hematocrit 33.9 % (37.0-47.0); Hemoglobin 10.2 g/dL (11.5-15.3); Lymphocytes # 1.2 10^3/uL (0.8-4.8); Lymphocytes % 9.8 %; Mean Corpuscular HGB Conc 30.1 g/dL (30.0-36.0); Mean Corpuscular Volume 99.7 fL (81-99); Mean Platelet Volume 9.8 fL (7.4-10.4); Monocytes # 0.8 10^3/uL (0.2-0.9); Monocytes % 6.7 %; Neutrophils # 9.65 10^3/uL (1.8-7.7); Neutrophils % 82.4 %; Nucleated Red Blood Cells % 0 %; Platelet Count 290 10^3/cmm (130-400); Red Cell Distribution Width 15.8 % (12.1-15.1); White Blood Count 11.7 10^3/uL (4.0-10.0)
[2020-06-11 13:28] LABS: Add Urine Culture? Yes; Add Urine Microscopic? YES; Bacteria Urine 4+ /hpf; Bilirubin Urine Neg (Negative); Blood Urine 3+ (Negative); Glucose Urine UA Norm (Normal); Ketones Urine Negative (Negative); Leukocyte Esterase Urine 2+ (Negative); Nitrate Urine Positive (Negative); Protein Urine 2+ (Negative); Specific Gravity, Urine 1.015 (1.005-1.030); Urine Appearance Cloudy (CLEAR); Urine Color Yellow (Yellow); Urobilinogen Urine Norm (Negative); WBC Urine >100 /hpf (0-5); pH Urine 6 (5-7)
[2020-06-11 13:38] LABS: Alanine Aminotransferase 19 U/L (0-33); Albumin Level 3.2 g/dL (3.5-5.2); Alkaline Phosphatase 71 IU/L (35-105); Anion Gap 15.2 (5-19); Aspartate Amino Transferase 28 U/L (0-32); Blood Urea Nitrogen 36 mg/dL (8-23); Calcium 8.9 mg/dL (8.5-10.5); Carbon Dioxide 23 mmol/L (22-29); Chloride 104 mmol/L (98-107); Creatine Phosphokinase 76 U/L (26-192); Globulin 3.2 g/dL (1.3-4.6); Glucose 90 mg/dL (65-115); Lipase 17 U/L (13-60); Osmolality Calculated 294 mOsm/kg (285-295); Potassium 4.2 mmol/L (3.5-5.1); Sodium 138 mmol/L (136-145); Total Bilirubin 0.3 mg/dL (0.15-1.2); Total Protein 6.4 g/dL (6.6-8.7)
[2020-06-11] MEDS: cefTRIAXone 1,000 mg SDV 1000 MG IM (14:17)
[2020-06-11 14:33] VITALS: BP 145/66; PULSE 64; RESP 12; O2SAT 91
== END 2020-06-11 14:34 | disposition home or self-care (01) ==
PROVIDERS: Emergency Provider Family Medicine; PCP Family Medicine
DX: N30.90 Cystitis, unspecified without hematuria (principal); M19.042 Primary osteoarthritis, left hand; M19.041 Primary osteoarthritis, right hand; N18.6 End stage renal disease; Z99.2 Dependence on renal dialysis; W18.30XA Fall on same level, unspecified, initial encounter; E03.9 Hypothyroidism, unspecified; Z79.82 Long term (current) use of aspirin; Z79.891 Long term (current) use of opiate analgesic
CPT/HCPCS: 12345; 73130; 80053; 81001; 82550; 83605; 83690; 85025; 87077; 87086; 87186; 93005; 96372; 99282; 99283; J0696

== ENCOUNTER 2020-07-03 12:44 | Outpatient (CLI) | payer MEDICARE, OTHER, SELFPAY ==
--- NOTE | 2020-07-03 13:00 | CT_ITS ---
WS: [id number] CT PELVIS WITH RECTAL CONTRAST. HISTORY: N82.8 - Other female genital tract fistulae TECHNIQUE: Contiguous imaging is performed of the pelvis with rectal contrast. Coronal and sagittal r eformats are reviewed. All CT scans at [facility] use at least one of these dose optimiza tion techniques: automated exposure control; mA and/or kV adjustment per patient size (includes targe jory exams where dose is matched to clinical indication); or iterative reconstruction. DLP: 885.22 mGy.cm COMPARISON: 06/21/[address] first performed through the pelvis. Additional imaging is performed after rectal contr ast administration. On the noncontrast sequence through the pelvis there is a moderate fecal retention and constipation. There is soft tissue thickening obscuring the planes of the structures within the pelvis. Patient is status post hysterectomy. Ovaries are both present. There is a large amount of air in moderately dist ended urinary bladder. After the instillation of the rectal contrast high density contrast is noted mixing with air in the u rinary bladder. Consistent with an enterovesical fistula. The exact fistulous not identified. Suspect its to the LEFT of midline. After the initial rectal contrast bolus there is also a few pockets of a ir and some contrast noted in the presacral space and also contrast extending into the vagina. Rectov aginal fistulous communication is best seen on image [address]/CT pelvis wo con [id number] IMPRESSION: 1. Multiple fistulas are identified. 2. Enterovesical fistula. Air and rectal contrast were both identified in the urinary bladder. 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 4. There is additional fistula between the presacral soft tissues and the rect um. 5. No abscess identified. There is presacral soft tissue thickening.
[2020-07-03] MEDS: iodixanol 320 mg/mL 100mL Btl XX ×2 (14:38→14:39)
== END 2020-07-03 12:45 | disposition home or self-care (01) ==
LOC: RAD 12:48
PROVIDERS: PCP Family Medicine; Visit Provider Obstetrics & Gynecology
DX: N82.8 Other female genital tract fistulae (principal)
CPT/HCPCS: 72192

== ENCOUNTER 2020-08-24 15:01 | Emergency (ER) | payer MEDICARE, OTHER, SELFPAY ==
[2020-08-24 15:28] VITALS: BP 131/55; PULSE 76; RESP 18; TEMP 36.6; O2SAT 92; BMI 16.4
--- NOTE | 2020-08-24 15:47 | XRR_ITS ---
PROCEDURE INFORMATION: Exam: XR Lumbosacral Spine, 2 or 3 Views Exam date and time: 08/24/2020 3:50 PM Age: 84 years old Clinical indication: Injury or trauma; Fall; Blunt trauma (contusions or hematomas); Patient HX: Right sided pain TECHNIQUE: Imaging protocol: XR of the lumbosacral spine, 2 or 3 views. COMPARISON: CT pelvis con [id number] 07/03/2020 1:41 PM FINDINGS: Bones/joints: Generalized osteopenia is seen. No acute fracture. Normal alignment. Soft tissues: Unremarkable. XR/XR lumbar spine 2-3V* [id number] IMPRESSION: 1. Generalized osteopenia 2. Otherwise No acute findings.
--- NOTE | 2020-08-24 15:47 | XRR_ITS ---
PROCEDURE INFORMATION: Exam: XR Chest, 1 View Exam date and time: 08/24/2020 3:50 PM Age: 84 years old Clinical indication: Injury or trauma; Fall; Blunt trauma (contusions or hematomas); Injury date: 08/24/20; Patient HX: Right sided pain TECHNIQUE: Imaging protocol: XR of the chest Views: 1 view. COMPARISON: CR XR chest 1V portable [id number] 01/03/2020 9:17 AM FINDINGS: Lungs: Unremarkable. No consolidation. Pleural spaces: Unremarkable. No pleural effusion. No pneumothorax. Heart/Mediastinum: Unremarkable. No cardiomegaly. Bones/joints: Unremarkable. A right central line extends into the right atrium XR/XR chest 1V portable [id number] IMPRESSION: No acute findings. Right central line is in the right atrium
--- NOTE | 2020-08-24 15:47 | XRR_ITS ---
PROCEDURE INFORMATION: Exam: XR Right Ribs Exam date and time: 08/24/2020 3:50 PM Age: 84 years old Clinical indication: Injury or trauma; Fall; Rib area; Blunt trauma (contusions or hematomas); Injury date: 08/24/20; Patient HX: Right sided pain TECHNIQUE: Imaging protocol: XR Right ribs. Views: 2 views. COMPARISON: CR XR chest 1V portable [id number] 01/03/2020 9:17 AM FINDINGS: Tubes, catheters and devices: A right central line extends into the right atrium Bones/joints: Multiple displaced fractures are present in the right 8th and 9th posterior ribs. Soft tissues: Normal. XR/XR ribs RT 2V* [id number] IMPRESSION: 1. Multiple rib fractures right 8th and 9th ribs. 2. Right central line is in the right atrium 3. Otherwise No acute findings.
--- NOTE | 2020-08-24 15:47 | XRR_ITS ---
PROCEDURE INFORMATION: Exam: XR Thoracic Spine, 3 Views Exam date and time: 08/24/2020 3:50 PM Age: 84 years old Clinical indication: Injury or trauma; Fall; Blunt trauma (contusions or hematomas); Injury date: 08/24/20; Patient HX: Right sided pain TECHNIQUE: Imaging protocol: XR of the thoracic spine, 3 views. COMPARISON: No relevant prior studies available. FINDINGS: Bones/joints: Dorsal spine osteopenia is seen. No acute fracture. Normal alignment. Soft tissues: Unremarkable. Heart/Mediastinum: A central line is present on the right side extending to the right atrium XR/XR thoracic spine 3V* [id number] IMPRESSION: 1. No acute findings. 2. Dorsal spine osteopenia. 3. Right central line extends to the right atrium
--- NOTE | 2020-08-24 15:47 | XRR_ITS ---
PROCEDURE INFORMATION: Exam: XR Right Tibia and Fibula Exam date and time: 08/24/2020 3:50 PM Age: 84 years old Clinical indication: Injury or trauma; Fall; Blunt trauma; Lower leg; Injury date: 08/24/20; Patient HX: Right sided pain TECHNIQUE: Imaging protocol: XR Right tibia and fibula. Views: 2 views. COMPARISON: No relevant prior studies available. FINDINGS: Bones/joints: Negative for acute bony abnormality. Soft tissues: Normal. XR/XR tibia fibula RT 2V [id number] IMPRESSION: No acute findings.
--- NOTE | 2020-08-24 15:50 | W.ED.FALL ---
HPI - Fall General: Chief Complaint: Fall Stated Complaint: fall, pain on right side of back Time Seen by Provider: 08/24/20 15:33 History of Present Illness: HPI Narrative: The patient is an 84-year-old female who comes to the ER 3 days after a fall. She says she was walking and got hooked by a turning chair and fell on her right side. EMS came to see her and she had a laceration on her right tibia which they bandaged and she felt comfortable staying home. She continues to have pain on her right ribs and lower back as well as her right tibia region. The bandage has not been changed and is now glued to the wound. complaint: fall Onset (ago): day(s) (3) Fall from: standing Place fall occurred: home Loss of consciousness: None Symptoms prior to fall: none Context: tripped/slipped Associated symptoms-after fall: Denies abdominal pain, chest pain, confusion, difficulty walking, headache(s) or neck pain Review of Systems General: Reports: 10 or more systems reviewed and unremarkable except in HPI and below Const: Denies: fatigue Eyes: Denies: change in vision, blurry vision or eye redness ENMT: Denies: throat pain, swelling of lips/tongue, ear or mastoid pain or nasal congestion Card: Denies: chest pain, palpitations, irregular heart rhythm, edema, dyspnea on exertion or orthopnea Resp: Denies: dyspnea, productive cough or non-productive cough GI: Denies: abdominal pain, diarrhea or GI cramping : Denies: flank pain, difficulty voiding, urinary frequency or urinary urgency Musc: Reports: back pain and extremity pain; Denies: neck pain, joint pain, joint redness, limited range of motion or muscle weakness Skin/Breast: Reports: other (bruising); Denies: rash, pruritus, erythema, skin pain or skin tenderness Neuro: Denies: headache(s), numbness in extremities, weakness in extremities, sensory changes, difficulty walking, dizziness, confusion or Slurred speech present Psych: Denies: anxiety or depression Endo: Denies: polyuria All/Imm: Denies: urticaria, throat swelling or tongue swelling PFSH ED PFSH: Medical History Anxiety CKD (chronic kidney disease) ESRD (end stage renal disease) Hypothyroidism Osteoarthritis Osteoporosis Venous insufficiency Surgical History AV fistula H/O varicose vein stripping H/O: hysterectomy For bleeding. History of cataract extraction Insert prosthetic lens History of cholecystectomy History of ear surgery Reconstruction History of esophagogastroduodenoscopy (EGD) History of hernia repair History of open sigmoidectomy (06/21/19) with end colostomy S/P colostomy takedown (01/02/20) S/P dialysis catheter insertion Status post colonoscopy (12/20/19) diverticulosis Family History Sister Peripheral arterial disease Diabetes Mother CAD (coronary artery disease) Father CAD (coronary artery disease) Denies family history of Anesthesia complication Bleeding disorder Social History (Updated 07/01/20 @ 16:24 by Rajesh Casas MD) Smoking and tobacco status: never smoked Alcohol intake: never Lives independently: Yes Household members: spouse Marital status: History of recent travel: No Physical Exam Const: COMMON NORMALS: no acute distress, average body habitus, patient oriented x3, no limitations, healthy appearing, alert and well nourished GENERAL APPEARANCE: cooperative, comfortable, well kempt and well developed ORIENTATION/CONSCIOUSNESS: Yes awake, Yes oriented to person, Yes oriented to place and Yes oriented to time HENMT: COMMON NORMALS: normocephalic, external ears normal and Normal external nose present HEAD & SCALP: normal to inspection and normocephalic NOSE: Normal external nose present EXTERNAL EAR: Yes external ears normal MOUTH: Normal oral and palatal mucosa present THROAT: posterior oropharynx normal Eye: COMMON NORMALS: Equal, round and reactive pupils present and EOMs intact bilaterally GENERAL EYE: appearance normal, both eyes and all related structures PUPIL: Yes Equal, round and reactive pupils present Neck/C-Spine: COMMON NORMALS: full ROM, no lymphadenopathy, no meningeal signs and no JVD GENERAL: Yes normal visual inspection Lymph: LYMPHATIC: no lymphadenopathy noted Chest: COMMONS NORMALS: normal inspection of the chest and normal palpation of entire chest wall Resp: COMMON NORMALS: normal respiratory effort, No retractions, No use of accessory muscles, clear to auscultation bilaterally and percussion normal EFFORT & INSPECTION: Yes able to speak in complete sentences AUSCULTATION: clear to auscultation bilaterally PERCUSSION: percussion normal Cardio: COMMON NORMALS: no JVD, regular rate, regular rhythm, S1 normal heart sound present, S2 normal heart sound present and Peripheral pulses 2+ throughout RATE: regular rate RHYTHM: regular rhythm HEART SOUNDS: S1 normal heart sound present and S2 normal heart sound present PERIPHERAL PULSES: Peripheral pulses 2+ throughout GI: COMMON NORMALS: Normal to inspection, nondistended, normoactive bowel sounds present, Soft to palpation, non-tender and no masses INSPECTION: Yes normal to inspection PALPATION: Yes Soft to palpation : COMMON NORMALS: Yes no CVA tenderness BLADDER/KIDNEY EXAM: Yes no CVA tenderness Back/Pelvis: COMMON NORMALS: no CVA tenderness and thoraco-lumbar ROM normal OTHER: She has 2 different 5 cm bruises 1 to the area where the thoracic and lumbar spine meet and lower to the right another near her lumbar spine. Both are tender to palpation BACK IMAGE (FEMALE): 1. bruise 2. bruise Extremity: COMMON NORMALS: normal to inspection, full ROM, capillary refill normal, no joint enlargement and no pedal edema NARRATIVE EXTREMITY EXAM: Normal except right tibia wound with bandage glue to the wound. GENERAL: Yes normal exam except as noted Neuro: COMMON NORMALS: patient oriented x3, CN's II-XII intact bilaterally, moves all extremities, no focal motor deficits, no sensory deficits noted and gait normal SENSORIUM/ORIENTATION: Yes alert, Yes oriented to person, Yes oriented to place and Yes oriented to time MENINGEAL SIGNS: Yes no meningeal signs Psych: COMMON NORMALS: mental status grossly normal, Normal thought process present, cooperative, normal affect and speech normal APPEARANCE: Yes well kempt ATTITUDE: Yes calm SPEECH: Yes normal speech THOUGHT PROCESS: Normal thought process present Skin: COMMON NORMALS: no rashes or lesions noted GENERAL SKIN EXAM: no rashes or lesions noted Course Vital Signs: Vital signs: Vital Signs Temperature 97.8 F 08/24/20 15:28 Pulse Rate 76 08/24/20 15:28 Respiratory Rate 18 08/24/20 15:28 Blood Pressure 131/55 08/24/20 15:28 Pulse Oximetry 92 08/24/20 15:28 MDM - Fall MDM Narrative: Medical decision making narrative: X-ray shows fractures of the right eighth and ninth ribs. On exam she also has areas of ecchymosis and laceration to right tibia. The laceration was rebandaged and she was given pain control with Tylenol. She will be discharged with tramadol to help with her pain. Return to the ER with worsening symptoms, otherwise follow-up with your primary care physician in a few days to monitor improvement of your symptoms Discharge Plan Discharge Patient Disposition: Home Clinical Impression: Fracture of rib Condition: Stable Prescriptions: New tramadol 50 mg tablet 50 mg PO Q8H PRN (Reason: pain) Qty: 12 RF: 0 No Action gabapentin 100 mg capsule 100 mg PO BID@0700,1930 RF: 0 tramadol 50 mg tablet 50 mg PO Q6H PRN (Reason: Pain) RF: 0 levothyroxine [Synthroid] 50 mcg tablet 75 mcg PO DAILY@0700 RF: 0 albuterol sulfate [Ventolin HFA] 90 mcg/actuation HFA aerosol inhaler 2 puff INHALATION Q4H PRN (Reason: Shortness Of Breath) RF: 0 calcium carbonate [Calcium 600] 600 mg calcium (1,500 mg) tablet 600 mg PO DAILY@0700 RF: 0 midodrine 5 mg tablet 10 mg PO TID@08,12,19 RF: 0 aspirin 325 mg Tablet 325 mg PO DAILY@0700 RF: 0 ondansetron HCl [Zofran] 4 mg tablet 4 mg PO Q6H PRN (Reason: nausea and vomiting) Qty: 30 RF: 0 lovastatin 40 mg Tablet 40 mg PO DAILY@1900 RF: 0 acetaminophen [Tylenol Extra Strength] 500 mg Tablet 500 mg PO Q6H PRN (Reason: Pain) RF: 0 alprazolam 0.25 mg tablet See Rx Instructions .ROUTE .COMPLEX RF: 0 venlafaxine 37.5 mg tablet 37.5 mg PO DAILY@2000 RF: 0 loratadine 10 mg Tablet 10 mg PO DAILY@0700 RF: 0 RenaPlex-D 800 mcg-12.5 mg -2,000 unit tablet 1 tab PO DAILY@0700 RF: 0 Imodium A-D See Rx Instructions .ROUTE .COMPLEX PRN (Reason: Diarrhea) RF: 0 famotidine 40 mg Tablet 40 mg PO DAILY@0700 RF: 0 fluticasone propionate 50 mcg/actuation [place],Suspension 1 spray INTRANASAL DAILY PRN (Reason: Nasal Congestion) RF: 0 Discharge Orders: Discharge ED (Routine); Ordered 08/24/20 Ordered By: Yg Marie Referrals: Iban Victoria MD [Primary Care Provider] - Discharge Diet: Advance as tolerated Discharge Activity: Resume usual activity Patient Instructions: Rib Fracture (ED) Activity Restrictions/Additional Instructions: You are having continued pain because you have broken your eighth and ninth ribs on the right side. The rest of the pain is from bruises that should improve in the next few days to week. The rib pain will continue to hurt for several weeks. Please take tramadol to help with your pain and be careful not to fall while taking this medicine. Follow-up with your primary care physician in a few days and return to the ER with worsening symptoms. 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
--- NOTE | 2020-08-24 15:55 | XRR_ITS ---
PROCEDURE INFORMATION: Exam: XR Pelvis Exam date and time: 08/24/2020 3:55 PM Age: 84 years old Clinical indication: Injury or trauma; Fall; Blunt trauma (contusions or hematomas); Right; Pelvic region; Injury date: 08/24/20 TECHNIQUE: Imaging protocol: XR pelvis. Views: 1 or 2 view. COMPARISON: CT pelvis con [id number] 07/03/2020 1:41 PM FINDINGS: Bones/joints: Unremarkable. No acute fracture. Soft tissues: Multiple good gas-filled bowel loops seen in a nonspecific pattern XR/XR pelvis 1-2V* [id number] IMPRESSION: No acute findings.
== END 2020-08-24 17:53 | disposition home or self-care (01) ==
PROVIDERS: Emergency Provider Family Medicine; PCP Family Medicine
DX: S22.41XA Multiple fractures of ribs, right side, initial encounter for closed fracture (principal); Z79.82 Long term (current) use of aspirin; N18.6 End stage renal disease; W01.0XXA Fall on same level from slipping, tripping and stumbling without subsequent striking against object, initial encounter
CPT/HCPCS: 12345; 71045; 71100; 72072; 72100; 72170; 73590; 99281; 99283

== ENCOUNTER → 2020-09-03 10:52 | Outpatient (BNVA) | payer MEDICARE, OTHER, SELFPAY | PROVIDERS: PCP Family Medicine; Visit Provider Colon & Rectal Surgery | DX: Z01.812 Encounter for preprocedural laboratory examination (principal) | CPT/HCPCS: 87635 ==

== ENCOUNTER 2020-11-08 12:42 | Emergency (ER) | payer MEDICARE, OTHER, SELFPAY ==
[2020-11-08 12:51] VITALS: BP 105/59; PULSE 80; RESP 16; TEMP 36.7; O2SAT 97; BMI 15.4
--- NOTE | 2020-11-08 13:51 | XR_ITS ---
WS: [id number] Portable AP upright chest, 11/08/2020 Clinical Data: dyspnea/cough Comparison: Portable chest, 08/24/2020 Findings: No nodules, masses or effusions are seen. The heart is normal. The pulmonary vascularity is not increased. No pneumonia or pneumothorax is seen. There is a right dialysis catheter in position. There is a left axillary artery stent. The diaphragms are flattened. There is a dextroscoliosis of t he thoracic spine. XR/XR chest 1V portable [id number] Impression: Hyperinflation.
--- NOTE | 2020-11-08 13:51 | W.ED.GENADLT ---
HPI - General Adult General: Chief complaint: General Medical Stated complaint: FEVER, LOW BP, DEHYDRATION, DIALYSIS PT Time Seen by Provider: 11/08/20 13:50 History of Present Illness: HPI narrative: 85-year-old female with a history of end-stage renal disease presents to the emergency room with complaints of generally not feeling well she states she has been bloated in her abdomen hurts. When I went to talk to her she states that her blood pressures been low she has been dehydrated and she has had a bit of a fever. She did not really relate much about abdominal pain to me but she did tell the nurse that. She remarked to me she was new unsure why she was here that she felt fine. She is scheduled to have a fistula in her colon repaired soon. She denies any dysuria as she tells me she does still make urine however she urinated just before coming. She not had any hematuria. States right now she has no symptoms. Onset (ago): day(s) Location: abdomen Radiation: non-radiation Severity: mild Quality: aching Pain Consistency: intermittent Relieving factors: none Exacerbating factors: none Associated symptoms: Reports decreased appetite, malaise and nausea; Deny chest pain, confusion, cough, diaphoresis, dyspnea, fevers/chills, headache(s), rash, palpitations, seizures, short of breath, syncope, vomiting or weakness Treatments prior to arrival: none Review of Systems Const: Reports: malaise; Denies: diaphoresis ENMT: Denies: throat pain, ear or mastoid pain, nasal discharge or nasal congestion Card: Denies: chest pain or syncope Resp: Denies: dyspnea GI: Reports: nausea; Denies: vomiting : Denies: flank pain, difficulty voiding, dysuria, urinary frequency or urinary urgency Skin/Breast: Denies: rash Neuro: Denies: headache(s) or confusion PFS ED PFSH: Medical History Anxiety CKD (chronic kidney disease) ESRD (end stage renal disease) Hypothyroidism Osteoarthritis Osteoporosis Venous insufficiency Surgical History AV fistula H/O varicose vein stripping H/O: hysterectomy For bleeding. History of cataract extraction Insert prosthetic lens History of cholecystectomy History of ear surgery Reconstruction History of esophagogastroduodenoscopy (EGD) History of hernia repair History of open sigmoidectomy (06/21/19) with end colostomy S/P colostomy takedown (01/02/20) S/P dialysis catheter insertion Status post colonoscopy (12/20/19) diverticulosis Family History Sister Peripheral arterial disease Diabetes Mother CAD (coronary artery disease) Father CAD (coronary artery disease) Denies family history of Anesthesia complication Bleeding disorder Social History Smoking and tobacco status: never smoked Alcohol intake: never Lives independently: Yes Household members: spouse Marital status: History of recent travel: No Physical Exam Const: COMMON NORMALS: no acute distress GENERAL APPEARANCE: cooperative and comfortable ORIENTATION/CONSCIOUSNESS: Yes awake, Yes oriented to person, Yes oriented to place and Yes oriented to time HENMT: COMMON NORMALS: normocephalic, atraumatic and hearing grossly normal bilaterally HEAD & SCALP: normocephalic and atraumatic Neck/C-Spine: COMMON NORMALS: no JVD Resp: COMMON NORMALS: normal respiratory effort, No retractions, No use of accessory muscles and clear to auscultation bilaterally AUSCULTATION: clear to auscultation bilaterally Cardio: COMMON NORMALS: no JVD, regular rate, regular rhythm and No murmurs present (Cardio) RATE: regular rate RHYTHM: regular rhythm GI: COMMON NORMALS: Soft to palpation and No hepatosplenomegaly present AUSCULTATION: Yes normoactive bowel sounds PALPATION: Yes Soft to palpation, No Tenderness to palpation present (GI), No Guarding due to palpation present (GI) and Yes No hepatosplenomegaly present Extremity: COMMON NORMALS: normal to inspection, capillary refill normal, no clubbing, cyanosis or edema, no calf tenderness and no pedal edema Neuro: SENSORIUM/ORIENTATION: Yes oriented to person, Yes oriented to place and Yes oriented to time Skin: COMMON NORMALS: no rashes or lesions noted GENERAL SKIN EXAM: no rashes or lesions noted Course Vital Signs: Vital signs: Vital Signs Temperature 98.1 F 11/08/20 12:51 Pulse Rate 78 11/08/20 16:59 Respiratory Rate 16 11/08/20 12:51 Blood Pressure 137/55 11/08/20 16:59 Pulse Oximetry 97 11/08/20 16:59 MDM - General Adult MDM Narrative: Medical decision making narrative: Patient states she is doing better and wants to go home her troponin is negative going discharge her home have her continue to follow-up as previously planned and scheduled for dialysis and other issues she has an upcoming procedure evidently for a vaginal rectal fistula. She did have a mild cystitis she relatively asymptomatic we will start on antibiotics till the culture results return. Lab Data: Labs: Lab Results 11/08/20 11/08/20 11/08/20 Range/Units 14:17 14:17 16:24 WBC 10.1 H (4.0-10.0) 10^3/ uL RBC 3.56 L (4.1-5.3) 10^6/u L Hgb 11.2 L (11.5-15.3) g/dL Hct 37.4 (37.0-47.0) % MCV 105.1 H (81-99) fL MCH 31.5 (28.0-34.0) pg MCHC 29.9 L (30.0-36.0) g/dL RDW 16.9 H (12.1-15.1) % Plt Count 159 (130-400) 10^3/c mm MPV 10.3 (7.4-10.4) fL Neut % (Auto) 79.1 % Lymph % (Auto) 12.3 % [facility] % (Auto) 7.2 % Eos % (Auto) 0.2 % Baso % (Auto) 0.6 % Neut # (Auto) 7.97 H (1.8-7.7) 10^3/u L Lymph # (Auto) 1.2 (0.8-4.8) 10^3/u L [facility] # (Auto) 0.7 (0.2-0.9) 10^3/u L Eos # (Auto) 0.0 (0.0-0.8) 10^3/u L Baso # (Auto) 0.1 (0.0-0.1) 10^3/u L Nucleated RBC % (a uto) 0 % Nucleated RBCs # 0.0 /100WBC Sodium 135 L (136-145) mmol/L Potassium 4.4 (3.5-5.1) mmol/L Chloride 97 L (98-107) mmol/L Carbon Dioxide 28 (22-29) mmol/L Anion Gap 14.4 (5-19) BUN 26 H (8-23) mg/dL Creatinine 2.4 H (0.5-0.9) mg/dL GFR Calculation Not Reportable Glucose 96 (65-115) mg/dL Calculated Osmolal ity 285 (285-295) mOsm/k g Calcium 9.1 (8.5-10.5) mg/dL Total Bilirubin 0.5 (0.15-1.2) mg/dL AST 31 (0-32) U/L ALT 17 (0-33) U/L Alkaline Phosphata se 69 (35-105) IU/L Total Protein 7.4 (6.6-8.7) g/dL Albumin 3.8 (3.5-5.2) g/dL Globulin 3.6 (1.3-4.6) g/dL Urine Color Yellow (Yellow) Urine Appearance Hazy A (CLEAR) Urine pH 8 H (5-7) Ur Specific Gravit y 1.010 (1.005-1.030) Urine Protein 1+ H (Negative) Urine Glucose (UA) Norm (Normal) Urine Ketones Negative (Negative) Urine Blood 3+ H (Negative) Urine Nitrate Positive H (Negative) Urine Bilirubin 1+ H (Negative) Prot Sulfosalicyli c Acd Positive (Negative) Urine Urobilinogen 1 H (Negative) mg/dL Ur Leukocyte Deloris ase 2+ H (Negative) Urine RBC 5-10 H (0-2) /hpf Urine WBC >100 H (0-5) /hpf Ur Squamous Epith Cells None (0-5) /hpf Amorphous Sediment Not Reportable Urine Bacteria 4+ H (NONE) /hpf Discharge Plan Discharge Patient Disposition: Home Clinical Impression: ESRD (end stage renal disease), Vaginal fistula, Hypothyroidism, Cystitis Condition: Stable Prescriptions: New Cipro 250 mg tablet 250 mg PO BID 5 Days Qty: 10 RF: 0 No Action gabapentin 100 mg capsule 100 mg PO BID@0700,1930 RF: 0 levothyroxine [Synthroid] 50 mcg tablet 75 mcg PO DAILY@0700 RF: 0 albuterol sulfate [Ventolin HFA] 90 mcg/actuation HFA aerosol inhaler 2 puff INHALATION Q4H PRN (Reason: Shortness Of Breath) RF: 0 calcium carbonate [Calcium 600] 600 mg calcium (1,500 mg) tablet 600 mg PO DAILY@1500 RF: 0 midodrine 5 mg tablet 10 mg PO TID@08,12,19 RF: 0 aspirin 325 mg Tablet 325 mg PO DAILY@0700 RF: 0 ondansetron HCl [Zofran] 4 mg tablet 4 mg PO Q6H PRN (Reason: nausea and vomiting) Qty: 30 RF: 0 loperamide [Imodium A-D] 2 mg Capsule 2 mg PO Q4H PRN (Reason: Diarrhea) RF: 0 lovastatin 40 mg Tablet 40 mg PO DAILY@1900 RF: 0 acetaminophen [Tylenol Extra Strength] 500 mg Tablet 500 mg PO Q6H PRN (Reason: Pain) RF: 0 alprazolam 0.25 mg tablet See Rx Instructions .ROUTE .COMPLEX RF: 0 venlafaxine 37.5 mg tablet 37.5 mg PO DAILY@2000 RF: 0 loratadine 10 mg Tablet 10 mg PO DAILY@0700 RF: 0 RenaPlex-D 800 mcg-12.5 mg -2,000 unit tablet 1 tab PO DAILY@2000 RF: 0 famotidine 40 mg Tablet 40 mg PO DAILY@0700 RF: 0 fluticasone propionate 50 mcg/actuation [place],Suspension 1 spray INTRANASAL DAILY PRN (Reason: Nasal Congestion) RF: 0 tramadol 50 mg tablet 50 mg PO Q8H PRN (Reason: pain) Qty: 12 RF: 0 Fish Oil 1,000 mg Capsule 1 cap PO DAILY@1500 RF: 0 Discharge Orders: Discharge ED (Routine); Ordered 11/08/20 Ordered By: Hadley Moseley Referrals: Iban Victoria MD [Primary Care Provider] - Discharge Diet: Usual diet Discharge Activity: Resume usual activity Patient Instructions: Opioid Safety Activity Restrictions/Additional Instructions: With your primary care as scheduled. Coding Level of Care Code ED Stocklayer for Balaji Fwd Exam Comprehensive
[2020-11-08 14:28] LABS: Basophils # 0.1 10^3/uL (0.0-0.1); Basophils % 0.6 %; Eosinophils % 0.2 %; Hematocrit 37.4 % (37.0-47.0); Hemoglobin 11.2 g/dL (11.5-15.3); Lymphocytes # 1.2 10^3/uL (0.8-4.8); Lymphocytes % 12.3 %; Mean Corpuscular HGB Conc 29.9 g/dL (30.0-36.0); Mean Corpuscular Hemoglobin 31.5 pg (28.0-34.0); Mean Corpuscular Volume 105.1 fL (81-99); Mean Platelet Volume 10.3 fL (7.4-10.4); Monocytes # 0.7 10^3/uL (0.2-0.9); Monocytes % 7.2 %; Neutrophils # 7.97 10^3/uL (1.8-7.7); Neutrophils % 79.1 %; Nucleated Red Blood Cells % 0 %; Platelet Count 159 10^3/cmm (130-400); Red Blood Count 3.56 10^6/uL (4.1-5.3); Red Cell Distribution Width 16.9 % (12.1-15.1); White Blood Count 10.1 10^3/uL (4.0-10.0)
[2020-11-08 14:45] VITALS: BP 114/62; PULSE 78; O2SAT 98
[2020-11-08 15:00] VITALS: BP 135/60; PULSE 78; O2SAT 99
[2020-11-08 15:00] LABS: Alanine Aminotransferase 17 U/L (0-33); Albumin Level 3.8 g/dL (3.5-5.2); Alkaline Phosphatase 69 IU/L (35-105); Anion Gap 14.4 (5-19); Aspartate Amino Transferase 31 U/L (0-32); Blood Urea Nitrogen 26 mg/dL (8-23); Calcium 9.1 mg/dL (8.5-10.5); Carbon Dioxide 28 mmol/L (22-29); Chloride 97 mmol/L (98-107); Globulin 3.6 g/dL (1.3-4.6); Glucose 96 mg/dL (65-115); Osmolality Calculated 285 mOsm/kg (285-295); Potassium 4.4 mmol/L (3.5-5.1); Sodium 135 mmol/L (136-145); Total Bilirubin 0.5 mg/dL (0.15-1.2); Total Protein 7.4 g/dL (6.6-8.7)
[2020-11-08 15:47] VITALS: BP 132/54; PULSE 88
[2020-11-08 16:39] LABS: Blood Urine 3+ (Negative); Glucose Urine UA Norm (Normal); Ketones Urine Negative (Negative); Nitrate Urine Positive (Negative); Protein Urine 1+ (Negative); Sulfosalicylic Acid Urine Positive (Negative); Urine Appearance Hazy (CLEAR); Urine Color Yellow (Yellow); pH Urine 8 (5-7)
[2020-11-08 16:40] LABS: Add Urine Microscopic? YES; Bilirubin Urine 1+ (Negative); Leukocyte Esterase Urine 2+ (Negative); Urobilinogen Urine 1 mg/dL (Negative)
[2020-11-08 16:47] LABS: Add Urine Culture? Yes; Bacteria Urine 4+ /hpf; WBC Urine >100 /hpf (0-5)
[2020-11-08 16:59] VITALS: BP 137/55; PULSE 78; O2SAT 97
== END 2020-11-08 17:00 | disposition home or self-care (01) ==
PROVIDERS: Emergency Provider Family Medicine; PCP Family Medicine
DX: N30.90 Cystitis, unspecified without hematuria (principal); N82.8 Other female genital tract fistulae; E03.9 Hypothyroidism, unspecified; N18.6 End stage renal disease; Z79.82 Long term (current) use of aspirin
CPT/HCPCS: 51701; 71045; 80053; 81001; 85025; 87077; 87086; 87186; 99283

== ENCOUNTER → 2020-11-09 14:24 | Outpatient (BNVA) | payer MEDICARE, OTHER, SELFPAY | PROVIDERS: PCP Family Medicine; Visit Provider Colon & Rectal Surgery | DX: Z20.822 Contact with and (suspected) exposure to COVID-19 (principal) | CPT/HCPCS: 87635 ==